=== PATIENT | female | born 1975 | race Two or more races ===

== ENCOUNTER 2020-12-04 06:42 | Emergency (ER) | payer MEDICAID, SELFPAY ==
--- NOTE | 2020-12-04 06:55 | PC.NURSE ---
ems report: CF woke up with middle of night with cp located midsternal. - radiation +n/v. No PMH of signficant medical history or recent infection. Hx anxiety and depression. Med compliant. VS; 110/68, HR 81 100% ra 18. given 324mg asa by ems. - als intercept.
[2020-12-04 06:58] VITALS: BP 108/63; PULSE 75; RESP 18; TEMP 37.6; O2SAT 100; BMI 19.1
--- NOTE | 2020-12-04 07:49 | XR_ITS ---
EXAMINATION: XR CHEST CLINICAL INFORMATION: Shortness of breath. COMPARISON: None TECHNIQUE: Frontal view of the chest was obtained. FINDINGS: No significant abnormality is noted involving the heart, lungs, mediastinum, bony thorax or soft tissues. XR/XR chest 1V IMPRESSION: Unremarkable examination. No significant change since 02/05/2019.
--- NOTE | 2020-12-04 07:49 | ECG_ITS ---
Test Reason : CHEST PAIN Blood Pressure : / mmHG Vent. Rate : 069 BPM Atrial Rate : 069 BPM P-R Int : 134 ms QRS Dur : 090 ms QT Int : 420 ms P-R-T Axes : 078 068 068 degrees QTc Int : 450 ms Normal sinus rhythm Normal ECG No previous ECGs available Referred By: Trace Lisa Electronically Signed By:KAREN BARROW
--- NOTE | 2020-12-04 07:51 | ED.CHESTPAIN ---
HPI - Chest Pain General Chief Complaint: Chest Pain Stated Complaint: CHEST PAIN Time Seen by Provider: 12/04/20 07:43 Source: patient Limitations: no limitations History of Present Illness HPI narrative: This is a 45 years old female presented with a chief complaint of sharp left-sided chest pain worse with deep breath. Symptoms started yesterday at about 23:00 complaint: chest pain Onset (ago): hour(s) (8) Prior episodes: Yes Onset: during rest Pain location: substernal Pain radiation: none Severity: mild Quality: sharp Exacerbating factors: inspiration Risk Factors Coronary artery disease risk factors: none Related Data Allergies Allergy/AdvReac Type Severity Reaction Status Date / Time No Known Allergies Allergy Unverified 08/18/20 17:36 Review of Systems Review of Systems: Patient denies fever, GI symptoms, urinary symptoms, neurological symptoms Yes all other systems are reviewed and are negative Constitutional: Constitutional: Reports no additional constitutional complaints PMFSH Past Medical History Medical History Anxiety Depression Surgical History H/O removal of cyst Hx of tonsillectomy Social History Social History Smoking Status: Light tobacco smoker Use of substances other than those prescribed or required for medical reasons: No Advance Directives: No Advance Directives Information Provided: No Physical Exam Vital Signs: Vital Signs: Last Vital Signs Temp 99.7 F 12/04/20 06:58 Pulse 68 12/04/20 07:55 Resp 16 12/04/20 07:55 BP 100/64 12/04/20 07:55 Pulse Ox 100 12/04/20 07:55 Body Mass Index 19.1 Const: Other: She appear well in not acute distress somewhat anxious General: cooperative Orientation/consciousness: oriented to person, oriented to place and oriented to time HENMT: Head: Yes normal to inspection Eyes: Eyelids: Yes eyelids normal Conjunctivae: conjunctivae normal Neck: Neck: Yes normal visual inspection and Yes full ROM Chest: Chest palpation & inspection: normal inspection of the chest and normal palpation of entire chest wall Resp: Effort & Inspection: normal respiratory effort Auscultation: clear to auscultation bilaterally Cardio: Jugular venous distension: no JVD Rate: regular rate GI: Inspection: Yes normal to inspection Palpation (GI): Soft to palpation, nontender and no guarding Percussion: Yes normal to percussion Skin: Rashes: no rashes Neuro: General: oriented to person, oriented to place and oriented to time Course Course Course Narrative: Patient was re-examined at 09:00 she is doing much better, her pain is better, high sensitivity troponin was negative and D-dimer was negative, she is satting 100% on room air overall she is a low risk she will be discharged home MDM - Chest Pain Lab Data Result diagrams: 12/04/20 08:02 12/04/20 08:02 Labs: Lab Results 12/04/20 12/04/20 12/04/20 Range/Units 08:02 08:02 08:02 WBC 3.8 L (4.8-10.8) X10*3/uL RBC 4.16 L (4.20-5.50) X10*6/uL Hgb 12.3 (12.0-16.0) g/dl Hct 37.6 (37-47) % MCV 90.4 (80-98) fL MCH 29.6 (27.0-33.0) pg MCHC 32.7 (31.0-35.0) g/dl RDW 13.0 (11.0-16.0) % Plt Count 204 (160-400) X10*3/uL MPV 9.7 (9.4-12.3) fL Immature Gran % (Auto) 0.3 (0.0-0.4) % Neut % (Auto) 50.5 (45-73) % Lymph % (Auto) 40.3 H (20-40) % [place] % (Auto) 5.8 (2-11) % Eos % (Auto) 1.8 (0-4) % Baso % (Auto) 1.3 (0-2) % Lymph # (Auto) 1.5 (1.2-4.9) X10*3/uL [place] # (Auto) 0.2 (0.1-1.2) X10*3/uL Eos # (Auto) 0.1 (0.0-0.4) X10*3/uL Baso # (Auto) 0.1 (0.0-0.2) X10*3/uL Abs Immat Gran (auto) 0.01 (0.00-0.03) X10*3/uL Absolute Neuts (auto) 1.9 L (2.0-8.3) X10*3/uL Absolute Nucleated RBC 0.000 (0.0-0.012) X10*3/uL Nucleated RBC % (auto) 0.0 (0.0-0.2) /100WBC PT 14.3 H (10.8-13.0) SEC INR 1.2 H (0.9-1.1) D-Dimer < 200 NG/ML Sodium 139 (135-145) mmol/L Potassium 3.3 (3.3-5.1) mmol/l Chloride 103 (96-108) mmol/L Carbon Dioxide 28 (22-29) mmol/L Anion Gap 11 L (12-20) BUN 2 L (9-16) mg/dL Creatinine 0.69 (0.5-1.4) mg/dL Estim Creat Clear Calc 90.9 Estimated GFR > 60 Random Glucose 94 (60-115) mg/dL Calcium 8.7 (8.4-10.2) mg/dL Total Bilirubin 0.6 (0.0-1.0) mg/dL AST 21 (5-31) U/L ALT 16 (0-31) U/L Alkaline Phosphatase 46 (39-117) U/L Troponin I High Sens (<3.5-17.0) ng/L Total Protein 6.0 L (6.5-8.0) g/dL Albumin 3.8 (3.5-5.0) g/dL 12/04/20 Range/Units 08:02 WBC (4.8-10.8) X10*3/uL RBC (4.20-5.50) X10*6/uL Hgb (12.0-16.0) g/dl Hct (37-47) % MCV (80-98) fL MCH (27.0-33.0) pg MCHC (31.0-35.0) g/dl RDW (11.0-16.0) % Plt Count (160-400) X10*3/uL MPV (9.4-12.3) fL Immature Gran % (Auto) (0.0-0.4) % Neut % (Auto) (45-73) % Lymph % (Auto) (20-40) % [place] % (Auto) (2-11) % Eos % (Auto) (0-4) % Baso % (Auto) (0-2) % Lymph # (Auto) (1.2-4.9) X10*3/uL [place] # (Auto) (0.1-1.2) X10*3/uL Eos # (Auto) (0.0-0.4) X10*3/uL Baso # (Auto) (0.0-0.2) X10*3/uL Abs Immat Gran (auto) (0.00-0.03) X10*3/uL Absolute Neuts (auto) (2.0-8.3) X10*3/uL Absolute Nucleated RBC (0.0-0.012) X10*3/uL Nucleated RBC % (auto) (0.0-0.2) /100WBC PT (10.8-13.0) SEC INR (0.9-1.1) D-Dimer NG/ML Sodium (135-145) mmol/L Potassium (3.3-5.1) mmol/l Chloride (96-108) mmol/L Carbon Dioxide (22-29) mmol/L Anion Gap (12-20) BUN (9-16) mg/dL Creatinine (0.5-1.4) mg/dL Estim Creat Clear Calc Estimated GFR Random Glucose (60-115) mg/dL Calcium (8.4-10.2) mg/dL Total Bilirubin (0.0-1.0) mg/dL AST (5-31) U/L ALT (0-31) U/L Alkaline Phosphatase (39-117) U/L Troponin I High Sens < 3.5 (<3.5-17.0) ng/L Total Protein (6.5-8.0) g/dL Albumin (3.5-5.0) g/dL ECG Data ECG #1: Attestation: I personally reviewed and interpreted this ECG as follows: ECG interpretation date: 12/04/20 ECG interpretation time: 08:01 Prior ECG tracings: available for review Pacemaker model: Normal sinus rhythm a rate of [address]-T segment isoelectr Discharge Plan Discharge Clinical Impression: Chest pain Patient Disposition: Home, Self-Care Instructions: Chest Pain (ED) Additional Instructions: Please follow-up with your primary care physician, call in a.m.. Return to the emergency room acutely worse shortness of breath, fever, chills any concern recurrent chest pain Interventions: ED Discharge Assessment Last Done: 12/04/20 09:24 Discharge Date/Time: 12/04/20 09:25
[2020-12-04 07:55] VITALS: BP 100/64; PULSE 68; RESP 16; O2SAT 100
[2020-12-04 08:09] LABS: MANUAL DIFF FLAG NO
[2020-12-04 08:10] LABS: Basophils Absolute Auto 0.1 X10*3/uL (0.0-0.2); Basophils Percent Auto 1.3 % (0-2); Eosinophils Absolute Auto 0.1 X10*3/uL (0.0-0.4); Eosinophils Percent Auto 1.8 % (0-4); Hematocrit 37.6 % (37-47); Hemoglobin 12.3 g/dl (12.0-16.0); Imm Gran Abs Auto 0.01 X10*3/uL (0.00-0.03); Imm Gran Pct Auto 0.3 % (0.0-0.4); Lymphocytes Absolute Auto 1.5 X10*3/uL (1.2-4.9); Lymphocytes Percent Auto 40.3 % (20-40); Mean Corpuscular HGB Conc 32.7 g/dl (31.0-35.0); Mean Corpuscular Hemoglobin 29.6 pg (27.0-33.0); Mean Corpuscular Volume 90.4 fL (80-98); Mean Platelet Volume 9.7 fL (9.4-12.3); Monocytes Absolute Auto 0.2 X10*3/uL (0.1-1.2); Monocytes Percent Auto 5.8 % (2-11); Neutrophils Absolute Auto 1.9 X10*3/uL (2.0-8.3); Neutrophils Percent Auto 50.5 % (45-73); Platelet Count 204 X10*3/uL (160-400); Red Blood Count 4.16 X10*6/uL (4.20-5.50); White Blood Count 3.8 X10*3/uL (4.8-10.8)
[2020-12-04] MEDS: Ketorolac Tromethamine 15 MG/ML VIAL IV (08:14)
[2020-12-04 08:33] LABS: INTERNATIONAL NORM RATIO 1.2 (0.9-1.1); Prothrombin Time 14.3 SEC (10.8-13.0)
[2020-12-04 08:34] LABS: Troponin-I High Sensitivity < 3.5 ng/L (<3.5-17.0)
[2020-12-04 08:39] LABS: D Dimer < 200 NG/ML
[2020-12-04 08:42] LABS: Alanine Aminotransferase 16 U/L (0-31); Albumin Level 3.8 g/dL (3.5-5.0); Alkaline Phosphatase 46 U/L (39-117); Anion Gap 11 (12-20); Aspartate Amino Transferase 21 U/L (5-31); Bilirubin Total 0.6 mg/dL (0.0-1.0); Blood Urea Nitrogen 2 mg/dL (9-16); Calcium 8.7 mg/dL (8.4-10.2); Carbon Dioxide 28 mmol/L (22-29); Chloride 103 mmol/L (96-108); Creatinine Clr Calc Pharmacy 90.9; Estimated Glomerular Filt Rate > 60; Glucose Random 94 mg/dL (60-115); Potassium 3.3 mmol/l (3.3-5.1); Sodium 139 mmol/L (135-145)
--- NOTE | 2020-12-04 09:13 | PC.NURSE ---
Addendum entered by Genoveva Posey 12/04/20 09:15: pt requesting a covid swab Original Note: pt reports no improvement after the toradol, pain still 07/11
== END 2020-12-04 09:25 | disposition home or self-care (01) ==
PROVIDERS: Emergency Provider Emergency Medicine; PCP Internal Medicine Geriatric Medicine
DX: R07.9 Chest pain, unspecified (principal); F17.200 Nicotine dependence, unspecified, uncomplicated; Z71.6 Tobacco abuse counseling; Z20.828 Contact with and (suspected) exposure to other viral communicable diseases
CPT/HCPCS: 36415; 71045; 80053; 84484; 85025; 85379; 85610; 93005; 96374; 99284; J1885; U0003

== ENCOUNTER → 2020-12-26 11:55 | Outpatient (BNVA) | payer MEDICAID, SELFPAY | PROVIDERS: PCP Internal Medicine Geriatric Medicine; Visit Provider Physician Assistant ==

== ENCOUNTER 2021-01-05 07:09 | Outpatient (REF) | payer MEDICAID, SELFPAY ==
--- NOTE | ~2021-01-05 | FL_ITS ---
EXAMINATION: FL BARIUM SWALLOW CLINICAL INFORMATION: Dysphagia. COMPARISON: None. TECHNIQUE: Barium swallow examination is performed using fluoroscopic evaluation in addition to multiple fluoroscopic spot views. The patient is imaged both upright and prone and using both thick and thin sulfate along with effervescent granules. Fluoroscopy time: 0.9 minutes. DAP: 2.9 Gy-cm2. Images: 51. FINDINGS: Following intravenous administration of thick barium and barium-coated turkey, there is normal propagation of bolus from the oral cavity through the pharynx and esophagus and into the stomach. No obstruction, narrowing or stricture seen. No laryngeal penetration or aspiration seen. There is no retention of barium in the valleculae or piriform sinuses. Patient did have difficulty on initiation of oral swallowing every time irrespective of consistency of food. FL/FL barium swallow IMPRESSION: Significant difficulty on initiation of swallowing of any consistency of food. The entire esophagus and pharynx appear unremarkable.
== END 2021-01-05 07:10 | disposition home or self-care (01) ==
LOC: HO.XRAY 07:09
PROVIDERS: PCP Internal Medicine Geriatric Medicine; Visit Provider Physician Assistant
DX: R13.10 Dysphagia, unspecified (principal)
CPT/HCPCS: 74220

== ENCOUNTER → 2021-01-23 13:14 | Outpatient (BNVA) | payer MEDICAID, SELFPAY | PROVIDERS: PCP Internal Medicine Geriatric Medicine; Visit Provider Physician Assistant ==

== ENCOUNTER 2021-03-27 10:02 | Day surgery (SDC) | payer MEDICAID, SELFPAY ==
[2021-03-27 10:48] VITALS: BP 103/64; PULSE 72; RESP 18; TEMP 36.7; O2SAT 100; BMI 18.4
[2021-03-27 10:49] LABS: UPreg QC Valid YES; Urine Pregnancy NEGATIVE (NEGATIVE)
--- NOTE | 2021-03-27 11:14 | P.CONAN_ITS ---
[facility] Active Problems Active Problems: All Active Problems (Updated 02/22/21 @ 11:08 by Lilli almanza) Dysphagia (Acute) Depression (Acute) Past Medical History Medical History Anxiety Depression GERD (gastroesophageal reflux disease) Family History Family History Father No problems noted. Mother No problems noted. Surgical History Surgical History History of esophagogastroduodenoscopy (EGD) History of excision of pilonidal cyst Hx of tonsillectomy Social History Social History Household Members: None Alcohol intake: current Alcohol intake frequency: does not drink Smoking Status: Former smoker Use of substances other than those prescribed or required for medical reasons: No Have you been hit, kicked, punched, or otherwise hurt by someone within the past year? If so, by whom?: No Advance Directives: No Advance Directives Information Provided: Yes Current occupational status: [employer] Allergies Allergy/AdvReac Type Severity Reaction Status Date / Time No Known Allergies Allergy Verified 03/22/21 11:53 Home Medications Medication Instructions Recorded Confirmed Last Taken Type fluoxetine 20 mg capsule 20 mg PO BID 12/26/20 03/22/21 Unknown History iloperidone 6 mg tablet 6 mg PO BID 12/26/20 03/22/21 Unknown History quetiapine 300 mg tablet,extended 600 mg PO BEDTIME 12/26/20 03/22/21 Unknown History release 24 hr sucralfate 100 mg/mL oral 10 ml PO BID 12/26/20 03/22/21 Unknown History suspension Exam Exam Date and Time: March 27, 2021 1114 Height,Weight and Vital Signs: Height 5 ft 7 in Weight 53.524 kg Last Vital Signs Temp 98.0 F 03/27/21 10:48 Pulse 72 03/27/21 10:48 Resp 18 03/27/21 10:48 BP 103/64 03/27/21 10:48 Pulse Ox 100 03/27/21 10:48 Pertinent Lab Results Pertinent Lab Results: Laboratory Tests 03/27/21 10:26 Urine Test NEGATIVE Airway Mallampati Class: I TM Dist: >3cm Neck ROM: Full Partial: Upper Heart: RRR Lungs: CTA Assessment and Plan Assessment Anesthesia Assessment: Anesthesia Plan Discussed and Chart Reviewed Final Anesthetic Review NPO: Yes ASA Class: II Final Preanesthetic Review: Meds/Allgs Chart Reviewed, Consent Obtained/Reviewed and Anes Risks/Benef Reviewed Patient Risk: Low Procedure Risk: Intermediate Anesthetic Plan Anesthetic Plan: MAC: Disposition: Standard PACU
--- NOTE | 2021-03-27 11:18 | W.PM.OPN ---
Operative Note Operative Note Date of Service: 03/27/21 Narrative: Pre-op diagnosis: GERD, Dysphagia Post-op diagnosis: other (GERD, dysphagia, gastritis) Procedure: FLEXIBLE TRANSORAL UPPER GASTROINTESTINAL ENDOSCOPY HAD BIOPSIES AND ESOPHAGEAL BALLOON DILATION Consent: Indications for the procedure and potential complications of bleeding, perforation, reaction to medications and missed diagnosis were discussed with the patient and informed consent was obtained. Instrument: Olympus GIF H 190 mid size upper endoscope Monitoring: Vital signs and clinical assessment, continuous EKG monitoring, Pulse oximetry, Carbon Dioxide monitoring and blood pressure monitoring were done throughout the procedure. Procedure: The patient was placed in the left lateral decubitis position and pre-procedure medications were administered and a bite block was placed. The endoscope was inserted into the mouth and advanced under direct vision to the third part of duodenum. A careful inspection was made as the upper endoscope was withdrawn including a retroflexed examination of the proximal stomach; Findings and interventions are described below. Findings: Larynx: Normal Esophagus: Mildly tortuous esopahgus with increased tertiary contractions without stricture or ring - biopsies were obtained from proximal esophagus to check for EOE. GE junction at 38 cms. No esophagitis or Ramirez. Balloon dilation was performed with a 20 mm (60 F) CRE balloon for 60 seconds x1 Stomach: Mild gastric erythema. Biopsies were obtained. Grade 2 flap valve on retroflexed examination of the cardia. Duodenum: Normal bulb and descending duodenum Intervention: Biopsies as noted above Impression and Post Procedure Diagnosis: Endoscopy Findings: ESOPHAGUS: Mildly tortuous esopahgus with increased tertiary contractions without stricture or ring - biopsies were obtained from proximal esophagus to check for EOE. GE junction at 38 cms. No esophagitis or Ramirez. Balloon dilation was performed with a 20 mm (60 F) CRE balloon for 60 seconds x1 STOMACH: Mild gastritis Plan: Await pathology results Patient to schedule a FU appointment in the GI Clinic with ETHEL Olson. Above findings were reviewed with the patient and GERD handout was given in the discharge area Surgeon: Perla Layton MD Anesthesia: MAC (Dr Benton) Supervisor [employer]: Ana Martinez Estimated blood loss (mL): 0 Pathology: other (A. GASTRIC ANTRUM, R/O H. PYLORI B. PROXIMAL ESOPHAGUS R/O EOSINOPHILIC ESOPHAGITIS) Condition: stable Disposition: PACU
--- NOTE | 2021-03-27 11:18 | MHC.SHP ---
Pre-Procedural Eval Section A The patient is an INPATIENT: No The History & Physical has been completed within 30 days and I have reviewed it.: No Section B Chief Complaint: Dysphagia Details of Present Illness: A 45-year-old female with acid reflux, follows up after recent barium swallow. She has been taking omeprazole 20 mg as well as sucralfate b.i.d.. She has frequent breakthrough acid reflux. She wakes up bitter taste-she does not smoke or drink alcohol. Her appetite is good, but she is afraid to eat so that she does not get more acid reflux. She has no nausea or vomiting, fever or chills. Relevant Family History (Specify if Yes): No Relevant Social History: Tobacco Use (former smoker) Present Medications: see Short Stay Collaborative assessment Medical History: Significant History (Anxiety and depression) History of Previous Operations: Relevant previous surgery/procedure and date(s) (H/O removal of cyst Hx of tonsillectomy) Allergies: Allergies Allergy/AdvReac Type Severity Reaction Status Date / Time No Known Allergies Allergy Verified 03/22/21 11:53 Review of Systems Sugical H&P ROS: Negative: Constitution, Cardiovascular and Respiratory and Yes, Specify: Gastrointestinal (GERD, dysphagia) Exam Surgical H&P Exam: Normal: Heart, Normal: Lungs, Normal: Extremities and Normal: Abdomen Plan Diagnosis/Plan: Unchanged I have reviewed the history and physical and performed a pertinent physical examination on my patient. No changes have occurred unless specified.
[2021-03-27 11:55] VITALS: BP 82/47; PULSE 52; RESP 14; TEMP 36.2; O2SAT 100
[2021-03-27 12:00] VITALS: BP 92/50; PULSE 54
[2021-03-27 12:10] VITALS: BP 98/60; PULSE 75; RESP 18; O2SAT 99
[2021-03-27] MEDS: Lactated Ringers 500 ML 20 ML IVCONT (12:21)
[2021-03-27 12:26] VITALS: TEMP 36.6
== END 2021-03-27 13:22 | disposition home or self-care (01) ==
PROVIDERS: Anesthesiology; PCP Internal Medicine Geriatric Medicine; Visit Provider Internal Medicine Gastroenterology
PROC: 0DJ08ZZ Inspection of Upper Intestinal Tract, Via Natural or Artificial Opening Endoscopic (ICD-10-PCS; CPT 43235; principal; 2021-03-27 12:20)
DX: R13.10 Dysphagia, unspecified (principal); K22.8 Other specified diseases of esophagus; K21.9 Gastro-esophageal reflux disease without esophagitis; K29.50 Unspecified chronic gastritis without bleeding; F32.9 Major depressive disorder, single episode, unspecified; Z87.891 Personal history of nicotine dependence; Z79.899 Other long term (current) drug therapy
CPT/HCPCS: 43249; 43239; 81025; 88305; 88342; C1726; J2370

== ENCOUNTER 2021-04-07 14:50 | Outpatient (REF) | payer MEDICAID, SELFPAY ==
[2021-04-07 15:22] LABS: COVID-19 Test Negative (Negative)
== END 2021-04-07 14:51 | disposition home or self-care (01) ==
LOC: HO.LAB 14:50
PROVIDERS: Visit Provider Internal Medicine
DX: Z20.822 Contact with and (suspected) exposure to COVID-19 (principal)
CPT/HCPCS: 36415; 87635; C9803

== ENCOUNTER → 2022-01-24 10:24 | Outpatient (BNVA) | payer MEDICAID, SELFPAY | PROVIDERS: PCP Internal Medicine Geriatric Medicine; Visit Provider Physician Assistant ==

== ENCOUNTER 2022-05-14 13:24 | Emergency (ER) | payer MEDICAID, SELFPAY ==
--- NOTE | ~2022-05-14 | XR_ITS ---
EXAMINATION: XR CHEST CLINICAL INFORMATION: Shortness of breath COMPARISON: 12/04/2020 TECHNIQUE: Frontal view of the chest was obtained. FINDINGS: No significant abnormality is noted involving the heart, lungs, mediastinum, bony thorax or soft tissues. XR/XR chest 1V IMPRESSION: Unremarkable examination.
[2022-05-14 13:57] VITALS: BP 101/67; PULSE 76; RESP 18; TEMP 37.2; O2SAT 99; BMI 19.5
--- NOTE | 2022-05-14 15:10 | ED_ITS ---
HPI - General Adult General Chief complaint: General Medical Stated complaint: body itch, nausea, headache, chills, sob Time Seen by Provider: 05/14/22 15:08 Source: patient Mode of arrival: ambulatory History of Present Illness HPI narrative: 46-year-old female with a past medical history of anxiety, depression, GERD, presenting to the ED complaining of generalized fatigue/weakness and lethargy x1 week. Also reports shortness of breath, headache, nausea, and chills. Denies fever, cough, chest pain, abdominal pain, vomiting, diarrhea, recent travel, sick contacts. Denies headache being maximal in onset. Admits p.o. intake WNL Onset (ago): week(s) Related Data Home Medications Medication Instructions Recorded Confirmed fluoxetine 20 mg capsule (Prozac) 20 mg PO BID 12/26/20 01/24/22 iloperidone 6 mg tablet (Fanapt) 6 mg PO BID 12/26/20 01/24/22 quetiapine 300 mg tablet,extended 600 mg PO BEDTIME 12/26/20 01/24/22 release 24 hr (Seroquel XR) Previous Rx's Medication Instructions Recorded omeprazole 20 mg capsule,delayed 20 mg PO BID 30 days #60 caps 01/23/21 release omeprazole 20 mg capsule,delayed 20 mg PO BID 30 days #60 caps 01/24/22 release sucralfate 100 mg/mL oral 10 ml PO BID #420 mL 05/10/22 suspension (Carafate) Allergies Allergy/AdvReac Type Severity Reaction Status Date / Time No Known Allergies Allergy Verified 05/14/22 13:57 Review of Systems Review of Systems: Constitutional: No Weight loss, No Fever, + Chills, +fatigue, +malaise ENT/Mouth: No Ear Pain, No Nasal Congestion, No Sinus Pain, No Hoarseness, No sore throat, No Rhinorrhea, No Swallowing Difficulty Cardiovascular: No Chest Pain, + SOB Respiratory: No Cough, No Sputum, No Wheezing Gastrointestinal: + Nausea, No Vomiting, No Diarrhea, No Constipation, No Abdominal pain Genitourinary: No Dysuria, No Urinary Frequency, No Hematuria, No Urinary Incontinence/retention, No Urgency, No Flank Pain Musculoskeletal: No joint pain, No Myalgias, No Joint Swelling Skin: No Skin Lesions, No rash Neuro: + Weakness, No Numbness, No Paresthesias, +Headache Yes all other systems are reviewed and are negative Neurologic: Denies Abnormal speech present [facility] Past Medical History Attestation statement: The following information was validated with the patient. Medical History Anxiety Depression GERD (gastroesophageal reflux disease) Surgical History History of esophagogastroduodenoscopy (EGD) History of excision of pilonidal cyst Hx of tonsillectomy Family History Family History Father No problems noted. Mother No problems noted. Social History Social History Household Members: None Household Members Other:: alone Alcohol intake: current Alcohol intake frequency: does not drink Advance Directives: No Advance Directives Information Provided: Yes Current occupational status: disabled Physical Exam ED Vital Signs: Vital Signs - 24 hr 05/14/22 13:57 Temperature 98.9 F Pulse Rate 76 Respiratory Rate 18 Blood Pressure 101/67 Pulse Oximetry 99 Oxygen Delivery Method Room Air BMI result Body Mass Index 19.5 Const General: cooperative, healthy appearing, no acute distress, alert, awake and Physically active Orientation/consciousness: patient oriented x3 Limitations: no limitations HENMT Head: Yes normal to inspection and Yes atraumatic Ears: hearing grossly normal bilaterally and external ears normal General nose exam: Normal external nose present Face and sinus: Yes normal facial exam Mouth: Normal oral and palatal mucosa present Throat: Yes posterior oropharynx normal, Yes tonsils normal, Yes uvula midline and No peritonsillar mass Eyes General: appearance normal, both eyes and all related structures EOM: EOMs intact bilaterally Neck Neck: Yes normal visual inspection, Yes no lymphadenopathy and Yes no meningeal signs Resp Effort & Inspection: normal respiratory effort and no respiratory distress Auscultation: clear to auscultation bilaterally, no crackles, no rales, no rhonchi and no wheezes Cardio Rate: regular rate Heart sounds: S1 normal heart sound present and S2 normal heart sound present GI Inspection: Yes normal to inspection Palpation (GI): Soft to palpation, nontender, no guarding and not rigid General: Yes no CVA tenderness Back/Spine/Pelvis Back: no CVA tenderness Skin Rashes: no rashes Wounds: no wounds Neuro General: patient oriented x3, gait normal, tone normal, moves all extremities, no meningeal signs, no focal motor deficits and CN's II-XI intact bilaterally Cranial nerves: Yes CN's II-XII intact bilaterally and Yes Bilaterally intact EOM present Cognition (Neuro): normal cognition Speech: No Abnormal speech present Gait exam (Neuro): Normal gait present Motor exam (neuro): 5/5 motor strength present throughout Extrem General: Yes normal to inspection and Yes no pedal edema Course Course Course Narrative: 1619--chronic leukopenia. COVID-19 and influenza negative -chest x-ray unremarkable -labs otherwise unremarkable, UA not infected however urine positive > beta quant added > patient denies being sexually active since 2013, denies vaginal bleeding/ discharge or abdominal pain -beta quant 3 >> discussed with patient she needs repeat hCG in 2 days, order placed is to follow-up in lab on 05/16 Medical Decision Making [facility] Narrative Medical decision making narrative: 46-year-old female with a past medical history of anxiety, depression, GERD, presenting to the ED complaining of generalized fatigue/weakness and lethargy x1 week. Also reports shortness of breath, headache, nausea, and chills. On exam VSS, NAD, nontoxic, exam nonfocal. Concern for viral syndrome vs metabolic abnormalities or infectious etiology. Symptoms atypical for ACS/PE Plan: EKG, labs, CXR, UA, COVID-19/influenza testing Medical Records Medical records reviewed: Yes I reviewed the patient's medical records. Lab Data Lab results reviewed: Yes I reviewed the patient's lab results. Result diagrams: 05/14/22 15:59 05/14/22 15:59 Labs: Lab Results 05/14/22 05/14/22 05/14/22 Range/Units 14:42 14:42 15:53 WBC (4.8-10.8) X10*3/uL RBC (4.20-5.50) X10*6/uL Hgb (12.0-16.0) g/dl Hct (37.0-47.0) % MCV (80.0-98.0) fL MCH (27.0-33.0) pg MCHC (31.0-35.0) g/dl RDW (11.0-16.0) % Plt Count (160-400) X10*3/uL MPV (9.4-12.3) fL Immature Gran % (Auto) (0.0-0.4) % Neut % (Auto) (45-73) % Lymph % (Auto) (20-40) % [place] % (Auto) (2-11) % Eos % (Auto) (0-4) % Baso % (Auto) (0-2) % Lymph # (Auto) (1.2-4.9) X10*3/uL [place] # (Auto) (0.1-1.2) X10*3/uL Eos # (Auto) (0.0-0.4) X10*3/uL Baso # (Auto) (0.0-0.2) X10*3/uL Abs Immat Gran (auto) (0.00-0.03) X10*3/uL Absolute Neuts (auto) (2.0-8.3) x10*3/uL Absolute Nucleated RBC (0.0-0.012) X10*3/uL Nucleated RBC % (auto) (0.0-0.2) /100WBC Sodium (135-145) mmol/L Potassium (3.3-5.1) mmol/L Chloride (96-108) mmol/L Carbon Dioxide (22-29) mmol/L Anion Gap (12-20) BUN (9-16) mg/dL Creatinine (0.5-1.4) mg/dL Estim Creat Clear Calc Estimated GFR Random Glucose (60-115) mg/dL Calcium (8.4-10.2) mg/dL Magnesium (1.6-2.6) mg/dL Total Bilirubin (0.0-1.0) mg/dL Direct Bilirubin (0.0-0.5) mg/dL AST (5-31) U/L ALT (0-31) U/L Alkaline Phosphatase (39-117) U/L Total Protein (6.5-8.0) g/dL Albumin (3.5-5.0) g/dL TSH (0.32-4.0) uIU/mL Beta HCG, Quant mIU/mL Urine Color YELLOW Urine Appearance CLEAR Urine pH 6.0 (5.0-8.0) Ur Specific [place] >= 1.030 H (1.005-1.025) Urine Protein NEG (NEG-TRACE) MG/DL Urine Glucose (UA) NEG (NEG) MG/DL Urine Ketones NEG (NEG) MG/DL Urine Blood NEG (NEG) Urine Nitrite NEG (NEG) Ur Leukocyte Esterase NEG (NEG) Urine Test (NEGATIVE) COVID-19 (BUSTER) Negative (Negative) COVID-19 Clin Com See Note Influenza Type A (KAYCE) Negative (Negative) Influenza Type B (KAYCE) Negative (Negative) Influenza A & B Note See Note 05/14/22 05/14/22 05/14/22 Range/Units 15:53 15:59 15:59 WBC 4.5 L (4.8-10.8) X10*3/uL RBC 4.41 (4.20-5.50) X10*6/uL Hgb 13.0 (12.0-16.0) g/dl Hct 39.7 (37.0-47.0) % MCV 90.0 (80.0-98.0) fL MCH 29.5 (27.0-33.0) pg MCHC 32.7 (31.0-35.0) g/dl RDW 12.8 (11.0-16.0) % Plt Count 228 (160-400) X10*3/uL MPV 10.0 (9.4-12.3) fL Immature Gran % (Auto) 0.2 (0.0-0.4) % Neut % (Auto) 54.6 (45-73) % Lymph % (Auto) 35.7 (20-40) % [place] % (Auto) 6.4 (2-11) % Eos % (Auto) 1.8 (0-4) % Baso % (Auto) 1.3 (0-2) % Lymph # (Auto) 1.6 (1.2-4.9) X10*3/uL [place] # (Auto) 0.3 (0.1-1.2) X10*3/uL Eos # (Auto) 0.1 (0.0-0.4) X10*3/uL Baso # (Auto) 0.1 (0.0-0.2) X10*3/uL Abs Immat Gran (auto) 0.01 (0.00-0.03) X10*3/uL Absolute Neuts (auto) 2.5 (2.0-8.3) x10*3/uL Absolute Nucleated RBC 0.000 (0.0-0.012) X10*3/uL Nucleated RBC % (auto) 0.0 (0.0-0.2) /100WBC Sodium 138 (135-145) mmol/L Potassium 4.7 (3.3-5.1) mmol/L Chloride 104 (96-108) mmol/L Carbon Dioxide 29 (22-29) mmol/L Anion Gap 10 L (12-20) BUN 6 L (9-16) mg/dL Creatinine 0.81 (0.5-1.4) mg/dL Estim Creat Clear Calc 78.5 Estimated GFR > 60 Random Glucose 79 (60-115) mg/dL Calcium 9.7 D (8.4-10.2) mg/dL Magnesium 1.9 (1.6-2.6) mg/dL Total Bilirubin 0.5 (0.0-1.0) mg/dL Direct Bilirubin 0.2 (0.0-0.5) mg/dL AST 20 (5-31) U/L ALT 12 (0-31) U/L Alkaline Phosphatase 56 D (39-117) U/L Total Protein 7.1 (6.5-8.0) g/dL Albumin 4.3 (3.5-5.0) g/dL TSH 1.45 (0.32-4.0) uIU/mL Beta HCG, Quant 3 mIU/mL Urine Color Urine Appearance Urine pH (5.0-8.0) Ur Specific [place] (1.005-1.025) Urine Protein (NEG-TRACE) MG/DL Urine Glucose (UA) (NEG) MG/DL Urine Ketones (NEG) MG/DL Urine Blood (NEG) Urine Nitrite (NEG) Ur Leukocyte Esterase (NEG) Urine Test POSITIVE H (NEGATIVE) COVID-19 (BUSTER) (Negative) COVID-19 Clin Com Influenza Type A (KAYCE) (Negative) Influenza Type B (KAYCE) (Negative) Influenza A & B Note ECG Data Attestation: I personally reviewed and interpreted this ECG as follows: Interpretation: EKG normal sinus rhythm at a rate of 72. QRS 90. QTC 418. No STEMI. Nonischemic. Discharge Plan Discharge Clinical Impression: Fatigue, Positive test Patient Disposition: Home, Self-Care Instructions: (ED), Fatigue (ED) Additional Instructions: Your blood work was reassuring today in the emergency department. Your chest x- ray was negative. He tested negative for COVID-19 and. Her urine was positive, your blood test for is extremely low, this needs to be watched very closely. Is positive bowel you are having an active miscarriage or an ectopic, or this is a false-positive You need to have the level recheck in 2 days, proceed to the lab at 09:00 on the . If he developed any vaginal bleeding, discharge, or abdominal pain please return to the ED immediately Call your OBGYN tomorrow morning 1st thing Reynolds an?lisis de juwan fue tranquilizador hoy en el departamento de emergencias. Reynolds radiograf?a de t?rax fue negativa. Brandon negativo para COVID-19 y. Reynolds embarazo en orina fue positivo, reynolds an?lisis de juwan para el embarazo es extremadamente bajo, esto debe vigilarse muy de cerca. Si el intestino es positivo, est? teniendo un aborto espont?ruslan activo o un ect?walter, o se trata de un falso positivo Debe volver a verificar el nivel en 2 d?as, dir?rickey al laboratorio a las 09:00 el d?a 15. Si desarroll? sangrado vaginal, secreci?n o dolor abdominal, regrese al servicio de urgencias de inmediato. Llame a reynolds obstetra ma?maxwell por la ma?maxwell a primera hora Prescriptions: No Action sucralfate [Carafate] 100 mg/mL suspension 10 ml PO BID Qty: 420 0RF quetiapine [Seroquel XR] 300 mg tablet extended release 24 hr 600 mg PO BEDTIME fluoxetine [Prozac] 20 mg capsule 20 mg PO BID Rx Instructions: administer in the morning and at noon/midday Fanapt 6 mg tablet 6 mg PO BID omeprazole 20 mg capsule,delayed release(/EC) 20 mg PO BID 30 Days Qty: 60 5RF omeprazole 20 mg capsule,delayed release(DR/EC) 20 mg PO BID 30 Days Qty: 60 5RF Referrals: Billy Brown MD [Physician] - 2 days (call tomorrow) Print Language: Qatari
[2022-05-14 15:20] LABS: COVID-19 Test Negative (Negative); IDNOW Serial# 16C4AD1C; Influenza A Negative (Negative); Influenza B2 Negative (Negative)
--- NOTE | 2022-05-14 15:34 | ECG_ITS ---
Test Reason : WEAKNESS Blood Pressure : / mmHG Vent. Rate : 072 BPM Atrial Rate : 072 BPM P-R Int : 144 ms QRS Dur : 090 ms QT Int : 382 ms P-R-T Axes : 000 148 149 degrees QTc Int : 418 ms Limb lead reversed Normal sinus rhythm Nonspecific ST and T wave abnormality Abnormal ECG When compared with ECG of 04-DEC-2020 06:49, Non-specific change in ST segment in Lateral leads Referred By: Rekha Castrejon Electronically Signed By:Dmitry Garcia
[2022-05-14] MEDS: 0.9 % Sodium Chloride 1,000 ML 999 ML IV (16:03)
[2022-05-14 16:12] LABS: MANUAL DIFF FLAG NO
[2022-05-14 16:15] LABS: Basophils Absolute Auto 0.1 X10*3/uL (0.0-0.2); Basophils Percent Auto 1.3 % (0-2); Eosinophils Absolute Auto 0.1 X10*3/uL (0.0-0.4); Eosinophils Percent Auto 1.8 % (0-4); Hematocrit 39.7 % (37.0-47.0); Imm Gran Abs Auto 0.01 X10*3/uL (0.00-0.03); Imm Gran Pct Auto 0.2 % (0.0-0.4); Lymphocytes Absolute Auto 1.6 X10*3/uL (1.2-4.9); Lymphocytes Percent Auto 35.7 % (20-40); Mean Corpuscular HGB Conc 32.7 g/dl (31.0-35.0); Mean Corpuscular Hemoglobin 29.5 pg (27.0-33.0); Monocytes Absolute Auto 0.3 X10*3/uL (0.1-1.2); Monocytes Percent Auto 6.4 % (2-11); Neutrophils Absolute Auto 2.5 x10*3/uL (2.0-8.3); Neutrophils Percent Auto 54.6 % (45-73); Platelet Count 228 X10*3/uL (160-400); Red Blood Count 4.41 X10*6/uL (4.20-5.50); Red Cell Distribution Width 12.8 % (11.0-16.0); White Blood Count 4.5 X10*3/uL (4.8-10.8)
[2022-05-14 16:21] LABS: Appearance Urine CLEAR; Color Urine YELLOW; Glucose Urine UA NEG (NEG); Leukocyte Esterase Urine NEG (NEG); Nitrite Urine NEG (NEG); Specific Gravity - Urine >= 1.030 (1.005-1.025); Urine Blood NEG (NEG); Urine Ketones NEG (NEG); Urine Protein NEG (NEG-TRACE)
[2022-05-14 16:35] LABS: Alanine Aminotransferase 12 U/L (0-31); Albumin Level 4.3 g/dL (3.5-5.0); Alkaline Phosphatase 56 U/L (39-117); Anion Gap 10 (12-20); Aspartate Amino Transferase 20 U/L (5-31); Bilirubin Direct 0.2 mg/dL (0.0-0.5); Bilirubin Total 0.5 mg/dL (0.0-1.0); Blood Urea Nitrogen 6 mg/dL (9-16); Calcium 9.7 mg/dL (8.4-10.2); Carbon Dioxide 29 mmol/L (22-29); Chloride 104 mmol/L (96-108); Creatinine Clr Calc Pharmacy 78.5; Estimated Glomerular Filt Rate > 60; Glucose Random 79 mg/dL (60-115); Magnesium 1.9 mg/dL (1.6-2.6); Potassium 4.7 mmol/L (3.3-5.1); Sodium 138 mmol/L (135-145); Total Protein 7.1 g/dL (6.5-8.0)
[2022-05-14 16:37] LABS: UPreg QC Valid YES; Urine Pregnancy POSITIVE (NEGATIVE)
[2022-05-14 16:56] LABS: TSH reflex Free T4 1.45 uIU/mL (0.32-4.0)
[2022-05-14 17:31] LABS: HCG Quantitative 3 mIU/mL
== END 2022-05-14 18:11 | disposition home or self-care (01) ==
PROVIDERS: Physician Assistant; Emergency Provider Emergency Medicine; PCP Internal Medicine Geriatric Medicine
DX: R53.83 Other fatigue (principal); Z32.01 Encounter for pregnancy test, result positive; Z20.822 Contact with and (suspected) exposure to COVID-19
CPT/HCPCS: 36415; 71045; 80048; 80076; 81003; 81025; 83735; 84443; 84702; 85025; 87502; 87635; 93005; 96360; 99284

== ENCOUNTER 2022-05-16 10:38 | Outpatient (REF) | payer MEDICAID, SELFPAY ==
[2022-05-16 13:04] LABS: HCG Quantitative 3 mIU/mL
== END 2022-05-16 10:39 | disposition home or self-care (01) ==
LOC: HO.LAB 10:38
PROVIDERS: Absent Provider Obstetrics & Gynecology; PCP Internal Medicine Geriatric Medicine; Visit Provider Emergency Medicine
DX: O20.9 Hemorrhage in early pregnancy, unspecified (principal)
CPT/HCPCS: 36415; 84702

== ENCOUNTER 2022-05-22 13:58 | Emergency (ER) | payer MEDICAID, SELFPAY ==
--- NOTE | ~2022-05-22 | US_ITS ---
EXAMINATION: US PELVIS CLINICAL INFORMATION: Pelvic pain COMPARISON: None TECHNIQUE: Ultrasound of the pelvis is performed using both transabdominal and transvaginal transducers along with Doppler. Transvaginal imaging is performed due to inadequate visualization transabdominally. FINDINGS: Uterus: The uterus is anteverted and measures 7.4 x 2.7 x 3.7 cm. The double wall endometrial thickness is 8 mm. The uterus is smooth in contour and has normal myometrial echogenicity. No visible fibroid. There is a 4 x 2 mm cyst/focus of fluid within the endometrium in the lower uterine segment of uncertain etiology and significance. Adnexa: Both ovaries are visualized. There is normal color flow to the adnexa. There is no ovarian torsion. There is no pelvic ascites or fluid collection. Right ovary measures 3.2 x 1.9 x 2.6 cm. Left ovary measures 2.9 x 2.5 x 2.4 cm. US/US pelvic and transvaginal IMPRESSION: There is a 4 x 2 mm focus of fluid or cyst within the endometrial canal of the lower uterine segment of uncertain etiology and significance. This could be followed with ultrasound in 6 weeks. Otherwise normal endometrium. Normal-appearing ovaries.
[2022-05-22 14:29] VITALS: BP 104/68; PULSE 74; RESP 16; TEMP 36.8; O2SAT 100; BMI 17.2
--- NOTE | 2022-05-22 17:53 | ED.ABDPAIN ---
HPI - Abdominal Pain General Chief Complaint: Abdominal Pain Stated Complaint: lower back pain Time Seen by Provider: 05/22/22 17:52 Source: patient Mode of arrival: ambulatory Limitations: no limitations History of Present Illness HPI narrative: Patient 46 years old history of depression anxiety was seen here on 05/14 hCG was 3, diagnosed possible early patient repeat ECG after 2 days it was still 3 no vaginal bleeding patient last menstrual period 2 months ago. Comes here now for 2 days complaining of pelvic pain and left flank pain no urinary complaints no nausea no vomiting Related Data Home Medications Medication Instructions Recorded Confirmed fluoxetine 20 mg capsule (Prozac) 20 mg PO BID 12/26/20 01/24/22 iloperidone 6 mg tablet (Fanapt) 6 mg PO BID 12/26/20 01/24/22 quetiapine 300 mg tablet,extended 600 mg PO BEDTIME 12/26/20 01/24/22 release 24 hr (Seroquel XR) Previous Rx's Medication Instructions Recorded omeprazole 20 mg capsule,delayed 20 mg PO BID 30 days #60 caps 01/23/21 release omeprazole 20 mg capsule,delayed 20 mg PO BID 30 days #60 caps 01/24/22 release sucralfate 100 mg/mL oral 10 ml PO BID #420 mL 05/10/22 suspension (Carafate) ibuprofen 600 mg tablet 600 mg PO Q6H PRN pain #20 tabs 05/22/22 Allergies Allergy/AdvReac Type Severity Reaction Status Date / Time No Known Allergies Allergy Verified 05/14/22 13:57 Review of Systems Review of Systems Yes all other systems are reviewed and are negative [facility] Past Medical History Medical History Anxiety GERD (gastroesophageal reflux disease) Surgical History History of esophagogastroduodenoscopy (EGD) History of excision of pilonidal cyst Hx of tonsillectomy Family History Family History Father No problems noted. Mother No problems noted. Social History Social History Household Members: None Household Members Other:: alone Alcohol intake: current Alcohol intake frequency: does not drink Advance Directives: No Advance Directives Information Provided: No Current occupational status: disabled Physical Exam ED Vital Signs: Vital Signs - 24 hr 05/22/22 14:29 05/22/22 18:20 05/22/22 20:22 Temperature 98.2 F 98.1 F 98.2 F Pulse Rate 74 63 72 Respiratory Rate 16 16 16 Blood Pressure 104/68 118/61 114/57 L Pulse Oximetry 100 98 98 Oxygen Delivery Method Room Air Room Air Room Air BMI result Body Mass Index 17.2 Appearance: Alert. Oriented X3. No acute distress. Eyes: PERRLA, No Nystagmus ENT: Pharynx normal. Oral Mucosa moist Neck: Normal inspection. Neck supple. CVS: Normal heart rate and rhythm. Pulses normal. Respiratory: No respiratory distress. Equal air entry bilateral, no wheezing/rales/rhonchi Abdomen: Soft mild suprapubic tenderness no guarding or rebound tenderness. Bowel sounds are present, no mass palpable, no CVA tenderness Skin: Skin warm and dry. Normal skin color. Normal skin turgor. Extremities: No lower extremity edema. No calf tenderness Neuro: Oriented X 3. No motor deficit. No sensory deficit.No cerebellar signs , cranial nerves II-XII intact MDM - Abdominal Pain MDM Narrative Medical decision making narrative: Patient ultrasound showed bilateral small ovarian cyst no signs of IUP hCG negative. Patient pain is likely from ovarian cysts will discharge patient home on ibuprofen Medical Records Attestation: I reviewed the patient's medical records. Lab Data Attestation: I reviewed the patient's lab results. Labs: Lab Results 05/22/22 05/22/22 Range/Units 18:33 18:33 Beta HCG, Quant < 2 mIU/mL Urine Color YELLOW Urine Appearance CLEAR Urine pH 7.0 (5.0-8.0) Ur Specific [place] 1.010 (1.005-1.025) Urine Protein NEG (NEG-TRACE) MG/DL Urine Glucose (UA) NEG (NEG) MG/DL Urine Ketones NEG (NEG) MG/DL Urine Blood NEG (NEG) Urine Nitrite NEG (NEG) Ur Leukocyte Esterase NEG (NEG) Discharge Plan Discharge Clinical Impression: Ovarian cyst Patient Disposition: Home, Self-Care Instructions: Ovarian Cyst (ED) Additional Instructions: Your blood test is negative for and ultrasound also negative for You have small cyst on the ovaries on both sides Take ibuprofen for pain 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
[2022-05-22 18:20] VITALS: BP 118/61; PULSE 63; RESP 16; TEMP 36.7; O2SAT 98
[2022-05-22 18:40] LABS: Appearance Urine CLEAR; Color Urine YELLOW; Glucose Urine UA NEG (NEG); Leukocyte Esterase Urine NEG (NEG); Nitrite Urine NEG (NEG); Urine Blood NEG (NEG); Urine Ketones NEG (NEG); Urine Protein NEG (NEG-TRACE)
[2022-05-22 19:02] LABS: HCG Quantitative < 2 mIU/mL
[2022-05-22 20:22] VITALS: BP 114/57; PULSE 72; RESP 16; TEMP 36.8; O2SAT 98
[2022-05-22] MEDS: Ibuprofen 600 MG TABLET PO (20:51)
== END 2022-05-22 20:55 | disposition home or self-care (01) ==
PROVIDERS: Emergency Provider Internal Medicine; PCP Internal Medicine Geriatric Medicine
DX: N83.202 Unspecified ovarian cyst, left side (principal); N83.201 Unspecified ovarian cyst, right side; M54.50 Low back pain, unspecified; R10.2 Pelvic and perineal pain; F41.1 Generalized anxiety disorder; F43.0 Acute stress reaction; Z79.899 Other long term (current) drug therapy
CPT/HCPCS: 36415; 76830; 76856; 81003; 84702; 99283; 99284

== ENCOUNTER 2022-11-20 14:57 | Outpatient (REF) | payer MEDICAID, SELFPAY ==
[2022-11-20 18:27] LABS: Lipase 36 U/L (8-78); TSH reflex Free T4 1.98 uIU/mL (0.32-4.0)
[2022-11-20 18:37] LABS: Vitamin B12 965 pg/mL (200-900)
[2022-11-23 14:47] LABS: H Pylori Breath Test Negative (Negative)
[2022-11-26 15:07] LABS: Vitamin D 25-OH, D2 <4 ng/mL; Vitamin D 25-OH, D3 35 ng/mL; Vitamin D 25-OH, Total 35 ng/mL (30-100)
== END 2022-11-20 14:58 | disposition home or self-care (01) ==
LOC: HO.LAB 14:57
PROVIDERS: PCP Internal Medicine Geriatric Medicine; Visit Provider Nurse Practitioner Family
DX: K21.9 Gastro-esophageal reflux disease without esophagitis (principal); K58.1 Irritable bowel syndrome with constipation; K20.90 Esophagitis, unspecified without bleeding; R14.0 Abdominal distension (gaseous); R10.9 Unspecified abdominal pain; E55.9 Vitamin D deficiency, unspecified
CPT/HCPCS: 36415; 82306; 82607; 82746; 83013; 83690; 84443; 86003; 99212

== ENCOUNTER 2022-12-10 14:18 | Outpatient (REF) | payer MEDICAID, SELFPAY ==
[2022-12-18 01:40] LABS: Pancreatic Elastase-1 >500 mcg/g
== END 2022-12-10 14:19 | disposition home or self-care (01) ==
LOC: HO.LNP 14:18
PROVIDERS: Visit Provider Nurse Practitioner Family
DX: R10.9 Unspecified abdominal pain (principal)
CPT/HCPCS: 82656

== ENCOUNTER → 2023-01-01 15:07 | Outpatient (BNVA) | payer MEDICAID, SELFPAY | PROVIDERS: PCP Internal Medicine Geriatric Medicine; Referring Provider Internal Medicine Geriatric Medicine; Visit Provider Nurse Practitioner Family | DX: K21.9 Gastro-esophageal reflux disease without esophagitis (principal); K58.1 Irritable bowel syndrome with constipation; K59.04 Chronic idiopathic constipation; R14.0 Abdominal distension (gaseous); M54.50 Low back pain, unspecified; G89.29 Other chronic pain | CPT/HCPCS: 99212 ==

== ENCOUNTER 2023-01-23 08:13 | Outpatient (REF) | payer MEDICAID, SELFPAY ==
--- NOTE | ~2023-01-23 | US_ITS ---
EXAMINATION: US ABDOMEN COMPLETE CLINICAL INFORMATION: Abdominal pain. COMPARISON: Abdominal ultrasound 09/18/2017 TECHNIQUE: Real-time imaging of the abdominal viscera. FINDINGS: PANCREAS: Multiple echogenic parenchymal foci in the pancreas, possibly calcifications in similar to prior. Pancreas otherwise unremarkable. ABDOMINAL AORTA: The proximal, mid, and distal segments are normal in caliber. INFERIOR VENA CAVA: Visualized portions are normal. LIVER: Normal. The liver is normal in size. The liver contour is normal. Parenchymal echogenicity is normal. No focal hepatic lesion. There is no intrahepatic biliary duct dilatation seen. GALLBLADDER: Normal. The gallbladder is physiologically distended without evidence of stones, sludge, polyps, wall thickening or pericholecystic fluid. COMMON BILE DUCT: Normal in caliber measuring 0.2 cm in diameter. RIGHT KIDNEY: Normal. No hydronephrosis. No renal calculi or focal parenchymal lesions. The kidney measures 9.5 cm in maximum dimension. LEFT KIDNEY: Normal. No hydronephrosis. No renal calculi or focal parenchymal lesions. The kidney measures 11.7 cm in maximum dimension. SPLEEN: Normal. The spleen measures 9 cm in maximum dimension. FREE FLUID: None. US/US abdomen complete IMPRESSION: 1. No evidence of cholelithiasis or acute cholecystitis. 2. No biliary ductal dilation. 3. Normal liver and spleen. 4. No hydronephrosis or nephrolithiasis. 5. Multiple echogenic foci in the pancreas, possibly tiny nonshadowing calcifications. Findings could potentially be sequela of chronic pancreatitis.
== END 2023-01-23 08:14 | disposition home or self-care (01) ==
LOC: HO.HMGCX 08:13
PROVIDERS: PCP Internal Medicine Geriatric Medicine; Visit Provider Nurse Practitioner Family
DX: R10.9 Unspecified abdominal pain (principal)
CPT/HCPCS: 76700

== ENCOUNTER → 2023-02-27 13:46 | Outpatient (BNVA) | payer MEDICAID, SELFPAY | PROVIDERS: PCP Internal Medicine Geriatric Medicine; Referring Provider Internal Medicine Geriatric Medicine; Visit Provider Nurse Practitioner Family | DX: K21.9 Gastro-esophageal reflux disease without esophagitis (principal); K58.1 Irritable bowel syndrome with constipation; K59.04 Chronic idiopathic constipation; R14.0 Abdominal distension (gaseous) | CPT/HCPCS: 99212 ==

== ENCOUNTER 2023-08-01 13:43 | Outpatient (AMB) | payer MEDICAID, SELFPAY ==
[2023-08-01 14:06] VITALS: BP 116/64; PULSE 71; BMI 18.6
--- NOTE | 2023-08-01 14:06 | MHC.OFFVIS ---
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 Intake Note: New patient dx chest tightness c/o sob and chest tightness lasting a few minutes Allergies No Known Allergies Allergy (Verified 02/27/23 14:02) Medication List - Last Reconciled 08/01/23 by Jairo Perez MD cyclobenzaprine 5 mg PO BEDTIME PRN docusate sodium 100 mg PO BEDTIME esomeprazole magnesium (Nexium) 40 mg PO DAILY famotidine (Pepcid) 20 mg PO BEDTIME fluoxetine (Prozac) 20 mg PO BID ibuprofen 600 mg PO Q6H PRN linaclotide (Linzess) 290 mcg PO QAM polyethylene glycol 3350 (Miralax) 17 grams PO DAILY simethicone (Gas Relief (simethicone)) 125 mg PO TID-QID PRN HPI HPI Comments History of Present Illness Details Thank you for referring Lizzy in cardiology consultation today for recent episode of syncope. She is a 47-year-old woman with prior history of depression and anxiety. She lives alone. She says about 3 months ago in April while she was going to the bathroom after getting of from watching television about 1.30 in the morning she found herself on the floor. She thinks she was out for about half an hour as she looked at the clock from the time she got up to when she woke up was about half an hour. She does not recall having any prodrome of symptoms. Denies any symptoms of lightheadedness, palpitations, chest pain or shortness of breath. Following that she did notice that she had soiled herself or have a tongue bite. This was not a witnessed episode. Since then she has had no recurrent episode. She denies any symptoms of palpitations, lightheadedness. Denies any symptoms exertional chest pain or shortness of breath. She says she drinks plenty of water every day about 60 oz. she does not like to salt her diet. No recent changes in her health. [facility] Medical History Anxiety Depression GERD (gastroesophageal reflux disease) Surgical History History of esophagogastroduodenoscopy (EGD) History of excision of pilonidal cyst Hx of tonsillectomy Family History Father No problems noted. Mother No problems noted. Social History Household Members: None Household Members Other:: alone Alcohol intake: current Alcohol intake frequency: does not drink Current occupational status: disabled Review of Systems Const Denies chills, Denies daytime sleepiness, Denies fatigue, Denies fever(s), Denies frequent falls, Denies poor appetite, Denies snoring, Denies stops breathing during sleep, Denies weakness, Denies weight gain and Denies weight loss Eyes Denies loss of vision ENT Denies dizziness and Denies hearing loss Card Denies chest pain, Denies claudication, Denies leg edema, Denies lightheadedness, Denies palpitations, Denies dyspnea, Denies dyspnea on exertion and Denies orthopnea Resp Denies cough, Denies excessive phlegm production, Denies dyspnea, Denies dyspnea on exertion, Denies snoring and Denies wheezing GI Denies abdominal pain, Denies hematochezia, Denies change in bowel habits, Denies nausea and Denies vomiting Denies urinary frequency and Denies dysuria Musc Denies arthralgias, Denies muscle weakness, Denies numbness and Denies other (frequent falls) Skin/Breast Denies nail changes and Denies rash Neuro Denies Abnormal speech present, Denies dizziness, Denies frequent falls, Denies loss of vision, Denies memory loss, Denies numbness and Denies weakness Psych Denies depression and Denies memory loss Endo Denies fatigue and Denies palpitations Emanuel/Lymph Reports easy bruising and Reports other (anemia) Aller/Immun Denies wheezing Physical Exam Vital Signs: Last Vital Signs Pulse 71 08/01/23 14:06 BP 116/64 08/01/23 14:06 BMI result Body Mass Index 18.6 Const General: cooperative, comfortable, no acute distress, alert, awake and Physically active Orientation/consciousness: patient oriented x3 Limitations: no limitations HEENT Head: Yes normocephalic and Yes atraumatic Neck Neck: Yes trachea midline, Yes supple and Yes no JVD Resp Effort & Inspection: normal respiratory effort Auscultation: clear to auscultation bilaterally Cardio Jugular venous distension: no JVD Palpation: normal PMI Rate: regular rate Rhythm: regular rhythm Heart sounds: S1 normal heart sound present, S2 normal heart sound present, no click, no gallops, no murmurs and no rubs GI Auscultation: normal bowel sounds Skin General skin exam: no rashes or lesions noted Neuro General: patient oriented x3 and no focal motor deficits Speech: No Abnormal speech present Extrem General: Yes no clubbing, cyanosis or edema Psych Appearance: grossly normal Office Procedures EKG Details: EKG shows normal sinus rhythm with normal EKG [id number], Complete Assessment & Plan Assessment & Plan (1) Syncope: Code(s): R55 - Syncope and collapse Plan: Syncope with unclear etiology with some atypical features especially post syncope being out for half an hour which is highly unusual. Possibility include orthostatic syncope and/or vasovagal syncope. Cardiac arrhythmias are extremely less likely. Will suggest further testing with echocardiogram to evaluate for structural heart disease. Also suggest a Holter monitor to assess for any cardiac arrhythmias either Yonis arrhythmias or tachyarrhythmias. Also suggest head-up tilt-table test to assess for hemodynamic response to head-up tilting. Will follow up in 6 weeks time after above-mentioned test. Thank you for allowing me to partake in her care Coding Level of Care Code New Pt Level 4 (72269) Diagnoses Syncope R55 CPT Codes EKG - CPT: 67370-[id number], Complete ([id number])
== END 2023-08-01 14:44 | disposition home or self-care (01) ==
PROVIDERS: PCP Internal Medicine Geriatric Medicine; Referring Provider Internal Medicine Geriatric Medicine; Visit Provider Internal Medicine Cardiovascular Disease
DX: R55 Syncope and collapse (principal)
CPT/HCPCS: 93010; 99204

== ENCOUNTER → 2023-08-01 13:43 | Outpatient (BNVA) | payer MEDICAID, SELFPAY | PROVIDERS: PCP Internal Medicine Geriatric Medicine; Referring Provider Internal Medicine Geriatric Medicine; Visit Provider Internal Medicine Cardiovascular Disease | DX: R55 Syncope and collapse (principal) | CPT/HCPCS: 93005; 99202 ==

== ENCOUNTER → 2023-09-03 13:42 | Outpatient (REF) | payer MEDICAID, SELFPAY ==
--- NOTE | 2023-09-03 13:45 | CA_ITS ---
Transthoracic Echocardiogram Patient (Last, First, Middle): Lizzy Smiley, Gender: Female Date of : 1975 Age: 47 Procedure Date: 09/03/2023 Procedure Type: Transthoracic Echocardiogram Location: OP Height: 170.18 cm Weight: 54.63 kg BSA: 1.63 m2 Heart Rate: 65 bpm BP: 116 / 64 mmHg Credit Portfolio Advisor: BERTRAND Referring MD: Jairo Perez MD Symptoms: R55 - Syncope and collapse Study Quality: Adequate ECG Rhythm: Sinus Conclusions: - The left ventricular systolic function is low normal. The visually estimated ejection fraction is between 50-55%. - No obvious valvular pathology seen on this study. - There is an interatrial septal aneurysm seen bowing to the right. Findings Left Ventricle Normal left ventricular cavity size. There is normal left ventricular wall thickness. The left ventricular systolic function is low normal. The visually estimated ejection fraction is between 50-55%. There is no evidence of regional wall motion abnormalities. Diastolic function is normal for age. Right Ventricle Normal right ventricular cavity size and systolic function. Atria Both atria are normal in size. There is an interatrial septal aneurysm seen bowing to the right. There is no evidence of interatrial shunt by color Doppler. Aortic Valve There is a normal trileaflet aortic valve. There is no aortic valve stenosis. There is no aortic valve regurgitation. Mitral Valve The mitral valve appears normal. There is no mitral valve regurgitation. There is no mitral valve stenosis. Pulmonic Valve The pulmonic valve is likely normal. Tricuspid Valve Normal tricuspid valve structure. There is no tricuspid valve regurgitation. Tricuspid regurgitation envelope is inadequate for calculation of right ventricular systolic pressure. Great Vessels The asc aorta is normal in size. Venous The inferior vena cava is normal in size and collapses greater than 50% with inspiration. Pericardium/Pleural There is no evidence of pericardial effusion. Prior Study Comparison No prior study available for comparison. Recommendations, Care & Conclusions No obvious valvular pathology seen on this study. Measurements 2D Linear Measurements IVSd: 0.68 0.6-0.9/0.6-1.0 cm LVIDd: 4.25 3.9-5.3/4.2-5.9 cm LVIDd Index: 2.61 2.4-3.2/2.2-3.1 cm/m2 LVIDs: 3.09 2.0-3.6 cm LVPWd: 0.73 0.7-1.1 cm LA Diam: 2.70 2.7-3.8/3.0-4.0 cm LAIDs Index: 1.66 1.5-2.3 cm/m2 LV Mass: 108.64 67-162/88-224 g LV Mass Index: 66.65 43-95/49-115 g/m2 LVOT Diam: 2.20 3.0+(-)1.3 cm 2D Systolic Function EF 4C: 52.70 >55% Mitral Valve MV Pk E: 0.48 MV PK A: 0.37 MV Decel Time: 195.00 E/A: 1.30 E'Lateral: 11.50 E'Medial: 8.38 E/E' Med: 5.70 E/E' Lat: 4.10 PHT: 57.00 MVA PHT: 3.86 Decel Barrow: 2.43 Aortic Valve AoV Pk Coy: 0.67 AoV Pk Grad: 2.00 RICKY: 3.96 LVOT LVOT Pk Coy: 0.70 LVOT Mn Coy: 0.48 LVOT VTI: 0.15 LVOT Pk Grad: 2.00 LVOT Mn Grad: 1.00 LVOT Diam: 2.20 LVOT Area: 3.80 Diastolic Function MV Pk E: 0.48 MV Pk A: 0.37 E/A: 1.30 E'Medial: 8.38 E/E' Med: 5.70 E' Laterial: 11.50 E/E' Lat: 4.10 Right Ventricle TAPSE (mm): 17.90 TVS' Coy: 9.10 Tricuspid Valve RA Press: 3.00 Great Vessels Aorta Sinus of Valsalva: 2.90 2.0-3.5 cm Ao Asc: 2.70 2.1-3.4 cm Pulmonary Valve PV Pk Coy: 0.61 Peak PV Grad: 1.00 Updated in Other Vendor System with Status of Final Alphonse Cerda MD electronically signed on 09/04/2023 11:49:15 AM with status of Final
== END ==
LOC: HO.CARD 13:42
PROVIDERS: PCP Internal Medicine Geriatric Medicine; Visit Provider Internal Medicine
DX: R55 Syncope and collapse (principal)
CPT/HCPCS: 93225; 93306

== ENCOUNTER → 2023-09-03 13:45 | Outpatient (BNV) | payer MEDICAID, SELFPAY | PROVIDERS: PCP Internal Medicine Geriatric Medicine; Visit Provider Internal Medicine | DX: I47.10 Supraventricular tachycardia, unspecified (principal) | CPT/HCPCS: 93227; 93306 ==

== ENCOUNTER 2023-10-17 13:01 | Outpatient (AMB) | payer MEDICAID, SELFPAY ==
[2023-10-17 14:39] VITALS: BP 114/64; PULSE 69; BMI 18.2
--- NOTE | 2023-10-17 14:39 | A.OFFVIS_ITS ---
Intake Vital Signs 10/17/23 14:39 Height 5 ft 7 in Weight 115 lb 15.41 oz BMI 18.2 BP 114/64 Pulse 69 Pulse Source Pulse Oximeter Intake Visit Reasons: 6 week follow up after testing Education Administrator Required: Yes Education Administrator Language: [employer] Name: deniz [id number] Allergies No Known Allergies Allergy (Verified 10/17/23 14:44) Medication List - Last Reconciled 10/19/23 by DOMINICK Guzman cyclobenzaprine 5 mg PO BEDTIME PRN docusate sodium 100 mg PO BEDTIME esomeprazole magnesium (Nexium) 40 mg PO DAILY famotidine (Pepcid) 20 mg PO BEDTIME fluoxetine (Prozac) 20 mg PO BID ibuprofen 600 mg PO Q6H PRN linaclotide (Linzess) 290 mcg PO QAM polyethylene glycol 3350 (Miralax) 17 grams PO DAILY simethicone (Gas Relief (simethicone)) 125 mg PO TID-QID PRN HPI 6 week follow up after testing HPI Details Lizzy is a 48 year old female with no known cardiac history who recently had a syncopal event. On last visit an echocardiogram, holter monitor and tilt table test were ordered. Today she reports that she has been feeling well. No recurrent syncope, no lightheadedness, presyncope or falls. No chest discomfort, palpitations, shortness of breath. She reports good activity tolerance. Walks routinely for exercise. Has been trying to drink more water. [facility] Medical History Anxiety Depression GERD (gastroesophageal reflux disease) Surgical History History of excision of pilonidal cyst History of esophagogastroduodenoscopy (EGD) Hx of tonsillectomy Family History Father No problems noted. Mother No problems noted. Social History Household Members: None Household Members Other:: alone Alcohol intake: current Alcohol intake frequency: does not drink Current occupational status: disabled Review of Systems Const All systems reviewed & are unremarkable except as noted in HPI and below Card Denies chest pain, Denies chest pain at rest, Denies chest pain with activity, Denies rapid heart rate, Denies pedal edema, Denies edema, Denies leg edema, Denies lightheadedness, Denies palpitations, Denies dyspnea, Denies dyspnea on exertion and Denies orthopnea Resp Denies cough, Denies dyspnea and Denies dyspnea on exertion GI Denies hematochezia and Denies change in stool character Musc Denies abnormal gait, Denies muscle weakness, Denies numbness, Denies radiating pain into limb, Denies stiffness and Denies tingling Neuro Denies abnormal gait, Denies numbness and Denies tingling Endo Denies palpitations Physical Exam Vital Signs: Last Vital Signs Pulse 69 10/17/23 14:39 BP 114/64 10/17/23 14:39 BMI result Body Mass Index 18.2 Const General: cooperative, healthy appearing, comfortable and no acute distress Orientation/consciousness: patient oriented x3 Neck Neck: Yes normal visual inspection Resp Effort & Inspection: normal respiratory effort Auscultation: clear to auscultation bilaterally, no crackles, no rales, no rhonchi and no wheezes Cardio Jugular venous distension: no JVD Rate: regular rate Rhythm: regular rhythm Heart sounds: S1 normal heart sound present, S2 normal heart sound present, no murmurs and no rubs Neuro General: patient oriented x3 Extrem General: Yes normal to inspection Psych Appearance: grossly normal Mental Status: mental status grossly normal Speech and movement: Normal speech and movement present Assessment & Plan Assessment & Plan (1) Syncope: Code(s): R55 - Syncope and collapse Qualifiers: Syncope type: vasovagal syncope Qualified Code(s): R55 - Syncope and collapse Plan: Episode of syncope, April 2023, when she got up in night to use bathroom and found herself on the floor. She believed her LOC was 30 min long. No warning signs prior to event. She reportedly did soil herself and bit her tongue. She did not go to the ED that night. PCP referred her to cardiology and she was seen 08/01/23. EKG showed SR, normal UT, QTc, QRS. Echo done on 09/03/23 showed EF 50- 55%, no valve abnormalities, intraatrial septal aneurym with bowing to right. Pt was informed of this finding and that it is not the cause of her syncope. Does not need further testing for PFO at this time as she has no hx TIA/CVA, neuro changes. Holter monitor done on 09/03/23 for 2 days shows SR, average rate 74, rate rante 55-137, rare SVE and VE. She refused to undergo the tilt table test that was ordered. She has had no recurrent syncope events and no presyncope. Her episode was felt to be either orthostatic hypotension event or vasovagal syncope. Reviewed the need to recognized any recurrent symptoms and get into a sitting or laying down position until symptoms resolve. Maintain good hydration. ED care if need for symptoms. Cardiology follow up as needed. Coding Level of Care Code Est Pt Level 3 (53328) Diagnoses Vasovagal syncope R55 Syncope type: vasovagal syncope Time Spent (min) 22
== END 2023-10-17 15:18 | disposition home or self-care (01) ==
PROVIDERS: PCP Internal Medicine Geriatric Medicine; Visit Provider Nurse Practitioner Family
DX: R55 Syncope and collapse (principal)
CPT/HCPCS: 99213

== ENCOUNTER → 2023-10-17 13:01 | Outpatient (BNVA) | payer MEDICAID, SELFPAY | PROVIDERS: PCP Internal Medicine Geriatric Medicine; Visit Provider Nurse Practitioner Family | DX: R55 Syncope and collapse (principal) | CPT/HCPCS: 99212 ==

== ENCOUNTER 2023-12-20 11:28 | Outpatient (AMB) | payer MEDICAID, SELFPAY ==
--- NOTE | 2023-12-20 11:36 | A.OFFVIS_ITS ---
Intake Vital Signs 12/20/23 11:42 Height 5 ft 7 in Weight 119 lb 0.794 oz BMI 18.6 BP 85/50 L Blood Pressure Location Lt brachial Position Sitting Pulse 72 Intake Visit Reasons: 3 month f/u GERD, GAS Intake Note: Lizzy presents in the office as a 3 month follow up for GERD and GAS. CC: Patient states that she had some trouble getting her Linzess on time due to issues with [employer]. She states she has to take the Linzess BID in order to have a BM. 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 Discussed with patient avoiding dietary triggers and late night snacking. Staying upright for minimal 3 hours after meals discussed with patient. Postprandial abdominal bloating Patient is eating better, so more in meals, avoiding late night snacking. Now that she is moving her bowels better she does not experience abdominal bloating anymore. IBS (irritable bowel syndrome) Patient reports significant improvement in abdominal bloating, cramping. Patient is moving her bowels much better, she feels like she does not empty it completely, will increase Linzess to 290 mcg daily. Chronic idiopathic constipation Increase Linzess to 290 mcg daily. Patient was also encouraged to increase fluid intake and activity to promote better bowel motility. I will see patient in 3 months, sooner on as needed basis. We will discuss her going again for upper endoscopy to evaluate treatment. Patient will also be sent for colonoscopy. Patient is agreeable to this plan and verbalizes understanding of instructions. She was given the opportunity to ask questions and all questions answered. ? Thank you for allowing me to participate in her care Plan Medications New linaclotide (Linzess) 290 mcg PO QAM 30 caps 4RF K59.00 - Constipation, unspecified Refilled simethicone (Gas Relief (simethicone)) 125 mg PO TID-QID PRN 120 caps 2RF abdominal distention R14.0 - Abdominal distension (gaseous) esomeprazole magnesium (Nexium) 40 mg PO DAILY 30 caps 5RF K21.9 - Gastro- esophageal reflux disease without esophagitis famotidine (Pepcid) 20 mg PO BEDTIME 30 tabs 3RF K21.9 - Gastro-esophageal reflux disease without esophagitis Discontinued linaclotide (Linzess) Discontinued Reason: Doctor's Order 145 mcg PO DAILY 30 caps 2RF TODAY'S VISIT Patient is here today for follow-up. Patient missed few of her appointments due to transportation. Patient reports that she was unable to get her Linzess for few weeks and she was having trouble moving her bowels. No BM for 5-6 days. Patient reports abdominal bloating and cramping. Patient reports that her symptoms of acid reflux are suppressed. Patient is taking Nexium in the morning and famotidine at bedtime. Patient denies any melena, hematochezia, unintentional weight loss or ribbon like stools. Patient denies any dyspepsia, dysphagia or odynophagia. [facility] Medical History GERD (gastroesophageal reflux disease) Depression Anxiety Surgical History History of excision of pilonidal cyst History of esophagogastroduodenoscopy (EGD) Hx of tonsillectomy Family History Father No problems noted. Mother No problems noted. Social History Household Members: None Household Members Other:: alone Alcohol intake: current Alcohol intake frequency: does not drink Current occupational status: disabled Review of Systems Const Denies weight gain and Denies weight loss ENT Reports no additional complaints, Denies dysphagia and Denies odynophagia Card Reports no additional complaints Resp Reports no additional complaints GI Denies abdominal pain, Denies belching, Denies melena, Denies bloating, Denies change in bowel habits, Denies dysphagia, Denies excessive flatus, Denies dyspepsia, Denies heartburn, Denies diarrhea, Denies loose stools, Denies nausea, Denies odynophagia and Denies vomiting Reports no additional complaints Musc Reports no additional complaints Neuro Reports no additional complaints Psych Reports no additional complaints Endo Reports no additional complaints Physical Exam Vital Signs: Last Vital Signs Pulse 72 12/20/23 11:42 BP 85/50 L 12/20/23 11:42 BMI result Body Mass Index 18.6 Const General: healthy appearing, no acute distress and well developed Nutritional Appearance: well nourished Orientation/consciousness: patient oriented x3 Resp Effort & Inspection: normal respiratory effort, able to speak in complete sentences, no tracheal deviation and symmetric chest movement Auscultation: clear to auscultation bilaterally Cardio Rate: regular rate GI Inspection: Yes normal to inspection and No distended Palpation (GI): Soft to palpation, not firm, nontender and No hepatosplenomegaly present Auscultation: normal bowel sounds General: Yes no CVA tenderness Back/Spine/Pelvis Back: no CVA tenderness Skin General skin exam: elasticity normal, turgor normal and dry skin Neuro General: patient oriented x3 Psych Appearance: grossly normal Mental Status: mental status grossly normal Assessment & Plan Assessment & Plan (1) GERD (gastroesophageal reflux disease): Code(s): K21.9 - Gastro-esophageal reflux disease without esophagitis Qualifiers: Esophagitis presence: esophagitis presence not specified Qualified Code(s): K21.9 - Gastro-esophageal reflux disease without esophagitis (2) Postprandial abdominal bloating: Code(s): R14.0 - Abdominal distension (gaseous) (3) IBS (irritable bowel syndrome): Code(s): K58.9 - Irritable bowel syndrome without diarrhea Qualifiers: Irritable bowel syndrome type: with constipation Qualified Code(s): K58.1 - Irritable bowel syndrome with constipation (4) Chronic idiopathic constipation: Code(s): K59.04 - Chronic idiopathic constipation Plan Continue Linzess. Patient was also encouraged to increase fluid intake and activity to promote better bowel motility. Continue Nexium and famotidine. Discussed with patient avoiding dietary triggers and late night snacking. Staying upright for minimum 3 hours after meals discussed with patient. I will see her in 6 months, sooner on as needed basis. Patient is agreeable to this plan and verbalizes understanding of instructions. She was given the opportunity to ask questions and all questions answered. Thank you for allowing me to participate in her care Medications: Refilled linaclotide (Linzess) 290 mcg PO QAM 30 caps 4RF K59.00 - Constipation, unspecified Coding Level of Care Code Est Pt Level 3 (75347) Diagnoses Gastroesophageal reflux disease, unspecified whether esophagitis present K21.9 Esophagitis presence: esophagitis presence not specified Postprandial abdominal bloating R14.0 Irritable bowel syndrome with constipation K58.1 Irritable bowel syndrome type: with constipation Chronic idiopathic constipation K59.04 Time Spent (min) 30 Comment 20 minutes spent with patient and additional 10 minutes spent reviewing her records
[2023-12-20 11:42] VITALS: BP 85/50; PULSE 72; BMI 18.6
== END 2023-12-20 12:50 | disposition home or self-care (01) ==
PROVIDERS: PCP Internal Medicine Geriatric Medicine; Visit Provider Nurse Practitioner Family
DX: K21.9 Gastro-esophageal reflux disease without esophagitis (principal); R14.0 Abdominal distension (gaseous); K58.1 Irritable bowel syndrome with constipation; K59.04 Chronic idiopathic constipation
CPT/HCPCS: 99213

== ENCOUNTER → 2023-12-20 11:28 | Outpatient (BNVA) | payer MEDICAID, SELFPAY | PROVIDERS: PCP Internal Medicine Geriatric Medicine; Visit Provider Nurse Practitioner Family | DX: K21.9 Gastro-esophageal reflux disease without esophagitis (principal); K58.1 Irritable bowel syndrome with constipation; K59.04 Chronic idiopathic constipation; R14.0 Abdominal distension (gaseous) | CPT/HCPCS: 99212 ==

== ENCOUNTER 2024-02-08 07:04 | Emergency (ER) | payer MEDICAID, SELFPAY ==
--- NOTE | ~2024-02-08 | CT_ITS ---
EXAMINATION: CT HEAD WITHOUT CONTRAST CLINICAL INFORMATION: Intractable left hepatic COMPARISON: CT head from 05/18/2023 TECHNIQUE: Contiguous axial imaging was performed from the skull base to vertex without intravenous administration of contrast. This CT examination was performed using dose optimization techniques as appropriate, variously including the following: *Automated exposure control *Adjustment of mA and/or kV according to patient size (this includes techniques or standardized protocols for targeted exams where dose is matched to indication/reason for exam; i.e. extremities or head) *Use of iterative reconstruction technique DLP: 620 mGy-cm FINDINGS: There is no evidence of acute intracranial hemorrhage or territorial infarction. No abnormal mass effect or midline shift is seen. May to white matter differentiation is well preserved. No extra-axial fluid collections are identified. The ventricles are normal in size. There is no abnormal attenuation within the brain parenchyma. The osseous structures and soft tissues are normal. The mastoid air cells and visualized portions of the paranasal sinuses are well aerated. CT/CT head/brain wo IV con IMPRESSION: No acute intracranial pathology.
[2024-02-08 07:09] VITALS: BP 120/68; PULSE 76; RESP 16; TEMP 36.1; O2SAT 100; BMI 18.6
--- NOTE | 2024-02-08 07:43 | ED_ITS ---
HPI - Headache General Chief Complaint: Head Injury Stated Complaint: headache s/p fall 02/04/24 Time Seen by Provider: 02/08/24 07:30 Source: patient Mode of arrival: ambulatory Limitations: no limitations History of Present Illness HPI Narrative: Patient is a 48-year-old female who presents emergency department for evaluation. She reports approximately 10 days ago she was taking out the garbage and walking downstairs when she suddenly developed severe pain to the left side of her head and a ringing sensation in the left ear which resulted in her feeling very weak and subsequently falling on the stairs. Reporting that she struck the back of her head on the trash barrel. She denies loss of consciousness. She was able to get herself back home. She presents emergency department today as she has continued to have a left posterior headache. Denies any red flag symptoms including fevers, chills, neck stiffness, malaise, aphasia, weakness, poor coordination, descriptors such as ?the worst headache ever ?or ?thunderclap?, or painful temporal region. Denies dizziness, lightheadedness, vision changes, URI symptoms, chest pain, shortness of breath, numbness or tingling of the extremities. Related Data Home Medications Medication Instructions Recorded Confirmed fluoxetine 20 mg capsule (Prozac) 20 mg PO BID 12/26/20 10/19/23 Previous Rx's Medication Instructions Recorded ibuprofen 600 mg tablet 600 mg PO Q6H PRN pain #20 tabs 05/22/22 cyclobenzaprine 5 mg tablet 5 mg PO BEDTIME PRN muscle spasm 01/01/23 #7 tabs famotidine 20 mg tablet (Pepcid) 20 mg PO BEDTIME #30 tabs 05/08/23 esomeprazole magnesium 40 mg 40 mg PO DAILY #30 caps 06/06/23 capsule,delayed release (Nexium) polyethylene glycol 3350 17 17 g PO DAILY #510 grams 08/06/23 gram/dose oral powder (Miralax) linaclotide 290 mcg capsule 290 mcg PO QAM #30 caps 12/20/23 (Linzess) docusate sodium 100 mg capsule 100 mg PO BEDTIME #90 caps 01/02/24 simethicone 125 mg chewable tablet 125 mg PO BID-TID PRN abdominal 01/10/24 (Gas Relief (simethicone)) distention #90 tabs Allergies Allergy/AdvReac Type Severity Reaction Status Date / Time No Known Allergies Allergy Verified 12/20/23 11:49 Review of Systems 2 Review of Systems: Yes all other systems are reviewed and are negative [facility] Past Medical History Attestation statement: The following information was validated with the patient. Source: old records reviewed Medical History GERD (gastroesophageal reflux disease) Depression Anxiety Surgical History History of excision of pilonidal cyst History of esophagogastroduodenoscopy (EGD) Hx of tonsillectomy Family History Family History Father No problems noted. Mother No problems noted. Social History Social History Household Members: None Household Members Other:: alone Alcohol intake: current Alcohol intake frequency: does not drink Advance Directives: No Advance Directives Information Provided: No Current occupational status: disabled Physical Exam 2 Vital Signs: Vital Signs: Last Vital Signs Temp 97 F 02/08/24 07:09 Pulse 76 02/08/24 07:09 Resp 16 02/08/24 07:09 BP 120/68 02/08/24 07:09 Pulse Ox 100 02/08/24 07:09 O2 Del Method Room Air 02/08/24 07:09 BMI result Body Mass Index 18.6 Appearance: Alert.?Oriented to person, place and time. No acute distress.?Normal affect. Head: Normocephalic, atraumatic Eyes: Pupils equal, round and reactive to light. EOMI. No nystagmus. No tenderness to palpation over the temporal region. ENT: External auditory canal normal tympanic membrane pearly coronado and intact bilaterally. Oropharynx normal. Neck: Normal inspection.? Neck supple. CVS: Heart sounds normal. Normal heart rate and rhythm.? Pulses normal.?? Respiratory: No respiratory distress.? Lung sounds clear to auscultation bilaterally?? Abdomen: Soft and non-tender. Normoactive bowel sounds. ?? Skin: Skin warm and dry.? Normal skin color.? ?? Extremities: No lower extremity edema.? Neuro: Moves all extremities spontaneously. Sensation intact bilaterally. CN II- XII intact. No focal neuro deficits. Ambulatory with steady gait. Course Reevaluation(s) Reevaluation #1: CBC and CMP are overall unremarkable, chronic leukopenia. Viral panel is negative. Quantitative hCG is detectable at 5, patient is adamant that she denies any possibility of , reporting that she has not been sexually active in 14 years. Of note I did review her medical record and in May of 2022 she similarly had a quantitative hCG detectable at 3 with a repeat also at 3 and not noted to be after pelvic ultrasound was obtained. I discussed this case with ED attending, Dr. Hicks, will move forward with head CT. Time: 09:03 Reevaluation #2: CT head without acute intracranial abnormality. Improving in headache with Fioricet. At this time stable for discharge home, headache likely secondary to concussive syndrome with recent head injury. Outpatient follow-up with primary care provider. All questions answered. Medications Administered Discontinued Medications Generic Name Dose Route Start Last Admin Trade Name Freq PRN Reason Stop Dose Admin Acetaminophen/Butalbital/Caffeine 1 tab 02/08/24 07:47 02/08/24 07:55 Butalb/Acetamin/Caff 50/325/40 Tablet PO 02/08/24 07:48 1 tab ONCE ONE Administration Medical Decision Making Medical Decision Making [facility] Narrative: Patient is a 48-year-old female with past medical history of GERD, depression, anxiety who presents to the emergency department for evaluation of an intractable left occipital headache. Overall she is well-appearing, nontoxic, afebrile, speaking clear full sentences, ambulatory with a steady gait and no focal neurological deficits. Given the reported intractability of her headache despite the use of OTC medications will obtain CT of the head to exclude acute intracranial pathology. Will trial Fioricet for headache management. Differential diagnosis with presentation includes SDH, SAH, ICH, MUSIC EDUCATOR mass, meningitis, encephalitis, CVA, GCA, migraine, headache. History without concerning exposures, not exacerbated or worsened by exertion, no red flag symptoms, vision changes, under the age of 50, no new no compromising conditions, no focal neurological abnormalities. Differential Diagnosis Differential Diagnoses: The differential diagnosis associated with the presentation includes (SDH, SAH, ICH, MUSIC EDUCATOR mass, meningitis, encephalitis, CVA, GCA, migraine, headache) Admission/Observation Consideration of admission/observation: Escalation of care including admission/observation considered (See narrative above and course narrative for further detail) Lab Data MDM Lab Attestation statement: I reviewed the patient's lab results. (See course narrative for further detail) 02/08/24 07:55 02/08/24 07:55 Labs: Lab Results 02/08/24 Range/Units 07:55 WBC 4.4 L (4.8-10.8) X10*3/uL RBC 4.64 (4.20-5.50) X10*6/uL Hgb 13.6 (12.0-16.0) g/dl Hct 40.6 (37.0-47.0) % MCV 87.5 (80.0-98.0) fL MCH 29.3 (27.0-33.0) pg MCHC 33.5 (31.0-35.0) g/dl RDW 12.6 (11.0-16.0) % Plt Count 221 (160-400) X10*3/uL MPV 9.3 L (9.4-12.3) fL Immature Gran % (Auto) 0.0 (0.0-0.4) % Neut % (Auto) 45.9 (45-73) % Lymph % (Auto) 44.0 H (20-40) % Hart % (Auto) 7.1 (2-11) % Eos % (Auto) 1.6 (0-4) % Baso % (Auto) 1.4 (0-2) % Lymph # (Auto) 1.9 (1.2-4.9) X10*3/uL Hart # (Auto) 0.3 (0.1-1.2) X10*3/uL Eos # (Auto) 0.1 (0.0-0.4) X10*3/uL Baso # (Auto) 0.1 (0.0-0.2) X10*3/uL Abs Immat Gran (auto) 0.00 (0.00-0.03) X10*3/uL Absolute Neuts (auto) 2.0 (2.0-8.3) x10*3/uL Absolute Nucleated RBC 0.000 (0.0-0.012) X10*3/uL Nucleated RBC % (auto) 0.0 (0.0-0.2) /100WBC Sodium 141 (135-145) mmol/L Potassium 3.6 (3.3-5.1) mmol/L Chloride 103 (96-108) mmol/L Carbon Dioxide 29 (22-29) mmol/L Anion Gap 13 (12-20) BUN 7 L (9-16) mg/dL Creatinine 0.87 (0.5-1.4) mg/dL Estim Creat Clear Calc 68.1 Estimated GFR > 60 Random Glucose 93 (60-115) mg/dL Calcium 10.3 H D (8.4-10.2) mg/dL Total Bilirubin 0.7 (0.0-1.0) mg/dL AST 19 (5-31) U/L ALT 12 (0-31) U/L Alkaline Phosphatase 62 (39-117) U/L Total Protein 7.1 (6.5-8.0) g/dL Albumin 4.3 (3.5-5.0) g/dL Beta HCG, Quant 5 mIU/mL Influenza Type A (PCR) NEGATIVE (Negative) Influenza Type B (PCR) NEGATIVE (Negative) RSV RNA Qual (PCR) NEGATIVE (Negative) SARS-CoV-2 RNA (RT-PCR) NEGATIVE (Negative) Independent Interpretation I performed an independent interpretation of an: CT Scan (No ICH, no fracture) Radiology Impression Discussion of test interpretation with radiology: I have reviewed the radiologist's reading. Radiologist Impression: CT/CT head/brain wo IV con IMPRESSION: No acute intracranial pathology. External Record Review External record reviewed: Outpatient record Prescription Management I considered prescription management with: Pain Medication (Acetaminophen/ibuprofen) Critical Care Time Critical Care Time Critical Care Time: Yes Total Critical Care Time: 40 Attestation: I personally attest to this critical care time spent taking care of the patient exclusive of all other billable procedures was approximately 40 minutes including initial evaluation of patient, ordering tests, CT interpretation, medical consultation, documentation, re-evaluation. Discharge Plan Discharge Clinical Impression: Concussion without loss of consciousness Patient Disposition: Home, Self-Care Instructions: Concussion (ED) Additional Instructions: The CT scan of your head did not show any abnormality which is very reassuring. It is common to experience headaches after this type of injury this is due to a concussion. You can take ibuprofen 200 mg, 3 tablets (600mg) every 6-8 hours as needed for pain, in addition to Tylenol 500 mg, 2 tablets (1,000mg) every 4-6 hours as needed for pain, but not to exceed 3 doses daily (3,000mg). Follow-up with your primary care provider. ? Prescriptions: No Action famotidine [Pepcid] 20 mg tablet 20 mg PO BEDTIME Qty: 30 11RF esomeprazole magnesium [Nexium] 40 mg capsule,delayed release(DR/EC) 40 mg PO DAILY Qty: 30 5RF polyethylene glycol 3350 [Miralax] 17 gram/dose powder 17 g PO DAILY Qty: 510 2RF docusate sodium 100 mg capsule 100 mg PO BEDTIME Qty: 90 3RF simethicone [Gas Relief (simethicone)] 125 mg tablet,chewable 125 mg PO BID-TID PRN (Reason: abdominal distention) Qty: 90 3RF ibuprofen 600 mg tablet 600 mg PO Q6H PRN (Reason: pain) Qty: 20 0RF fluoxetine [Prozac] 20 mg capsule 20 mg PO BID Rx Instructions: administer in the morning and at noon/midday cyclobenzaprine 5 mg tablet 5 mg PO BEDTIME PRN (Reason: muscle spasm) Qty: 7 0RF Linzess 290 mcg capsule 290 mcg PO QAM Qty: 30 4RF Referrals: Name,MD Geoff [Primary Care Provider] - Interventions: ED Discharge Assessment Last Done: 02/08/24 11:01 Discharge Date/Time: 02/08/24 11:02
[2024-02-08] MEDS: Butalb/Acetamin/Caff 50/325/40 TABLET 1 TAB PO (07:55)
[2024-02-08 07:59] LABS: MANUAL DIFF FLAG NO
[2024-02-08 08:03] LABS: Basophils Absolute Auto 0.1 X10*3/uL (0.0-0.2); Basophils Percent Auto 1.4 % (0-2); Eosinophils Absolute Auto 0.1 X10*3/uL (0.0-0.4); Eosinophils Percent Auto 1.6 % (0-4); Hematocrit 40.6 % (37.0-47.0); Hemoglobin 13.6 g/dl (12.0-16.0); Lymphocytes Absolute Auto 1.9 X10*3/uL (1.2-4.9); Mean Corpuscular HGB Conc 33.5 g/dl (31.0-35.0); Mean Corpuscular Hemoglobin 29.3 pg (27.0-33.0); Mean Corpuscular Volume 87.5 fL (80.0-98.0); Mean Platelet Volume 9.3 fL (9.4-12.3); Monocytes Absolute Auto 0.3 X10*3/uL (0.1-1.2); Monocytes Percent Auto 7.1 % (2-11); Neutrophils Percent Auto 45.9 % (45-73); Platelet Count 221 X10*3/uL (160-400); Red Blood Count 4.64 X10*6/uL (4.20-5.50); Red Cell Distribution Width 12.6 % (11.0-16.0); White Blood Count 4.4 X10*3/uL (4.8-10.8)
[2024-02-08 08:35] LABS: Alanine Aminotransferase 12 U/L (0-31); Albumin Level 4.3 g/dL (3.5-5.0); Alkaline Phosphatase 62 U/L (39-117); Anion Gap 13 (12-20); Aspartate Amino Transferase 19 U/L (5-31); Bilirubin Total 0.7 mg/dL (0.0-1.0); Blood Urea Nitrogen 7 mg/dL (9-16); Calcium 10.3 mg/dL (8.4-10.2); Carbon Dioxide 29 mmol/L (22-29); Chloride 103 mmol/L (96-108); Creatinine Clr Calc Pharmacy 68.1; Estimated Glomerular Filt Rate > 60; Glucose Random 93 mg/dL (60-115); HCG Quantitative 5 mIU/mL; Potassium 3.6 mmol/L (3.3-5.1); Sodium 141 mmol/L (135-145); Total Protein 7.1 g/dL (6.5-8.0)
[2024-02-08 08:43] LABS: Influenza A PCR NEGATIVE (Negative); Influenza B PCR NEGATIVE (Negative); Resp Syncy Virus RNA Qual PCR NEGATIVE (Negative); SARS COV2 PCR INHOUSE NEGATIVE (Negative)
== END 2024-02-08 11:02 | disposition home or self-care (01) ==
PROVIDERS: Nurse Practitioner Family; Emergency Provider Student in an Organized Health Care Education/Training Program; PCP Internal Medicine Geriatric Medicine
DX: S06.0X0A Concussion without loss of consciousness, initial encounter (principal); X58.XXXA Exposure to other specified factors, initial encounter; Y93.9 Activity, unspecified; Y92.9 Unspecified place or not applicable; Y99.9 Unspecified external cause status; Z11.52 Encounter for screening for COVID-19; Z20.828 Contact with and (suspected) exposure to other viral communicable diseases
CPT/HCPCS: 0241U; 36415; 70450; 80053; 84702; 85025; 99284

== ENCOUNTER 2024-06-19 08:41 | Outpatient (AMB) | payer MEDICAID, SELFPAY ==
--- NOTE | 2024-06-19 08:42 | MHC.OFFVIS ---
Vital Signs 06/19/24 08:49 Height 5 ft 7 in Weight 108 lb 14.534 oz BMI 17.1 BP 94/58 L Blood Pressure Location Rt brachial Position Sitting Pulse 72 Pulse Source Pulse Oximeter Pulse Oximetry (%) 100 Oxygen Delivery Method Room Air Intake Visit Reasons: Follow up 6 months Intake Note: Lizzy presents in office today for a scheduled 6 mos FUV CC; Pt reports that they are doing very well and their sx are well controlled with their current regimen. Pt does report that they would like to inquire if they could get an increased dose of simethicone. Pt states that they feel as if they are already building up a tolerance to the medication and that it does not seem as effective as it was initially. Intellectual Property Lawyer Required: Yes Intellectual Property Lawyer Services: Intellectual Property Lawyer Offered & Declined Allergies No Known Allergies Allergy (Verified 06/19/24 08:43) HPI HPI Follow up 6 months: Details: LAST VISIT GERD (gastroesophageal reflux disease) Postprandial abdominal bloating IBS (irritable bowel syndrome) Chronic idiopathic constipation Plan Continue Linzess. Patient was also encouraged to increase fluid intake and activity to promote better bowel motility. Continue Nexium and famotidine. Discussed with patient avoiding dietary triggers and late night snacking. Staying upright for minimum 3 hours after meals discussed with patient. I will see her in 6 months, sooner on as needed basis. Patient is agreeable to this plan and verbalizes understanding of instructions. She was given the opportunity to ask questions and all questions answered. ? Thank you for allowing me to participate in her care Medications Refilled linaclotide (Linzess) 290 mcg PO QAM 30 caps 4RF K59.00 TODAY'S VISIT Patient is here today for follow-up. Patient reports that she is taking Linzess every day and she is able to move her bowels. Simethicone helps, however she feels like she is still getting little bloated. Patient lost flow over 10 lb in the last 4 months. Patient states that she is eating much better and is exercising. Patient goes for walks every day. Patient states that overall she feels good. Denies any nausea or vomiting. Denies any abdominal pain or discomfort. Patient changed her diet, only eats chicken and fish and vegetables. Patient is avoiding food high in fat, fried, spicy. Patient had not had colonoscopy yet. [facility] Medical History GERD (gastroesophageal reflux disease) Depression Anxiety Surgical History History of excision of pilonidal cyst History of esophagogastroduodenoscopy (EGD) Hx of tonsillectomy Family History Father No problems noted. Mother No problems noted. Social History Household Members: None Household Members Other:: alone Alcohol intake: current Alcohol intake frequency: does not drink Current occupational status: disabled Review of Systems Const Denies weight gain and Denies weight loss ENT Reports no additional complaints, Denies dysphagia and Denies odynophagia Card Reports no additional complaints Resp Reports no additional complaints GI Denies abdominal pain, Denies belching, Denies melena, Denies bloating, Denies change in bowel habits, Denies dysphagia, Denies excessive flatus, Denies dyspepsia, Denies heartburn, Denies diarrhea, Denies loose stools, Denies nausea, Denies odynophagia and Denies vomiting Musc Reports no additional complaints Neuro Reports no additional complaints Psych Reports no additional complaints Endo Reports no additional complaints Physical Exam Vital Signs: Last Vital Signs Pulse 72 06/19/24 08:49 BP 94/58 L 06/19/24 08:49 Pulse Ox 100 06/19/24 08:49 Oxygen Delivery Method Room Air 06/19/24 08:49 BMI result Body Mass Index 17.1 Const General: healthy appearing, no acute distress and well developed Nutritional Appearance: well nourished Orientation/consciousness: patient oriented x3 Resp Effort & Inspection: normal respiratory effort, able to speak in complete sentences, no tracheal deviation and symmetric chest movement Auscultation: clear to auscultation bilaterally Cardio Rate: regular rate GI Inspection: Yes normal to inspection and No distended Palpation (GI): Soft to palpation, not firm, nontender and No hepatosplenomegaly present Auscultation: normal bowel sounds General: Yes no CVA tenderness Back/Spine/Pelvis Back: no CVA tenderness Skin General skin exam: elasticity normal, turgor normal and dry skin Neuro General: patient oriented x3 Psych Appearance: grossly normal Mental Status: mental status grossly normal Assessment & Plan Assessment & Plan (1) GERD (gastroesophageal reflux disease): Code(s): K21.9 - Gastro-esophageal reflux disease without esophagitis Qualifiers: Esophagitis presence: esophagitis presence not specified Qualified Code(s): K21.9 - Gastro-esophageal reflux disease without esophagitis (2) Postprandial abdominal bloating: Code(s): R14.0 - Abdominal distension (gaseous) (3) IBS (irritable bowel syndrome): Code(s): K58.9 - Irritable bowel syndrome without diarrhea Qualifiers: Irritable bowel syndrome type: with constipation Qualified Code(s): K58.1 - Irritable bowel syndrome with constipation (4) Chronic idiopathic constipation: Code(s): K59.04 - Chronic idiopathic constipation (5) Screen for colon cancer: Code(s): Z12.11 - Encounter for screening for malignant neoplasm of colon Plan Continue current regimen Nexium and Pepcid. Continue avoiding dietary triggers and late night snacking. Patient will continue taking Linzess to help her move her bowels better. Simethicone on as needed basis. Patient will return in 3 months to discuss going for colonoscopy. She is agreeable to this plan and verbalizes understanding of instructions. She was given the opportunity to ask questions and all questions answered. Thank you for allowing me to participate in her care Medications: New simethicone (Gas Relief (simethicone)) 180 mg PO BID PRN 60 caps 4RF abdominal distention Refilled linaclotide (Linzess) 290 mcg PO QAM 30 caps 4RF K59.00 - Constipation, unspecified esomeprazole magnesium (Nexium) 40 mg PO DAILY 30 caps 5RF K21.9 - Gastro-esophageal reflux disease without esophagitis famotidine (Pepcid) 20 mg PO BEDTIME 30 tabs 11RF K21.9 - Gastro-esophageal reflux disease without esophagitis Discontinued simethicone (Gas Relief (simethicone)) Discontinued Reason: Doctor's Order 125 mg PO BID-TID PRN 90 tabs 3RF abdominal distention Coding Level of Care Code Est Pt Level 3 (43758) Diagnoses Gastroesophageal reflux disease, unspecified whether esophagitis present K21.9 Esophagitis presence: esophagitis presence not specified Postprandial abdominal bloating R14.0 Irritable bowel syndrome with constipation K58.1 Irritable bowel syndrome type: with constipation Chronic idiopathic constipation K59.04 Screen for colon cancer Z12.11 Time Spent (min) 30 Comment 20 minutes spent with patient and additional 10 minutes spent reviewing her records
[2024-06-19 08:49] VITALS: BP 94/58; PULSE 72; O2SAT 100; BMI 17.1
== END 2024-06-19 09:52 | disposition home or self-care (01) ==
LOC: HO.HGI 08:41
PROVIDERS: PCP Internal Medicine Geriatric Medicine; Visit Provider Nurse Practitioner Family
DX: K21.9 Gastro-esophageal reflux disease without esophagitis (principal); R14.0 Abdominal distension (gaseous); K58.1 Irritable bowel syndrome with constipation; K59.04 Chronic idiopathic constipation; Z12.11 Encounter for screening for malignant neoplasm of colon
CPT/HCPCS: 99213

== ENCOUNTER → 2024-06-19 08:41 | Outpatient (BNVA) | payer MEDICAID, SELFPAY | PROVIDERS: PCP Internal Medicine Geriatric Medicine; Visit Provider Nurse Practitioner Family | DX: K21.9 Gastro-esophageal reflux disease without esophagitis (principal); K58.1 Irritable bowel syndrome with constipation; K59.04 Chronic idiopathic constipation; R14.0 Abdominal distension (gaseous); Z79.899 Other long term (current) drug therapy | CPT/HCPCS: 99212 ==

== ENCOUNTER 2024-07-21 13:13 | Outpatient (REF) | payer MEDICAID, SELFPAY ==
--- NOTE | ~2024-07-21 | XR_ITS ---
EXAMINATION: XR SHOULDER, RIGHT CLINICAL INFORMATION: Right shoulder pain and weakness, no known injury COMPARISON: None available. TECHNIQUE: AP external rotation, Grashey, scapular Y, and axillary views of the right shoulder. FINDINGS: The bones and soft tissues are normal. No fracture. Glenohumeral and acromioclavicular alignment is anatomic with normal joint space. No abnormal soft tissue calcifications. XR/XR shoulder RT min 2V IMPRESSION: Unremarkable right shoulder. Electronically signed by: Michelle Mccormick MD 08/04/2024 04:57 PM EDT
--- NOTE | ~2024-07-21 | XR_ITS ---
EXAMINATION: XR CERVICAL SPINE CLINICAL INFORMATION: Neck pain. COMPARISON: None available. TECHNIQUE: 3 views of the cervical spine were obtained. FINDINGS: There are no prevertebral soft tissue or bony abnormalities demonstrated. No compression fractures or subluxations are identified. Alignment is maintained at the atlanto-axial articulation. The disc spaces are preserved. No endplate changes are seen. The prevertebral soft tissues are normal. The foramina are patent. XR/XR cervical spine 3V IMPRESSION: Unremarkable examination. Electronically signed by: Aubrey Lee MD 08/05/2024 08:39 AM EDT
--- NOTE | ~2024-07-21 | XR_ITS ---
EXAMINATION: XR SHOULDER, LEFT CLINICAL INFORMATION: Atraumatic pain and weakness COMPARISON: None available. TECHNIQUE: AP external rotation, Grashey, scapular Y, and axillary views of the left shoulder. FINDINGS: No fracture or dislocation. Alignment is maintained. Mild thoracic levoscoliosis. Visualized lung and ribs are unremarkable. XR/XR shoulder LT min 2V IMPRESSION: No acute bony pathology left shoulder. Electronically signed by: Michelle Mccormick MD 08/04/2024 04:56 PM EDT
== END 2024-07-21 13:14 | disposition home or self-care (01) ==
LOC: HO.XRAY 13:13
PROVIDERS: Absent Provider Internal Medicine Geriatric Medicine; PCP Internal Medicine Geriatric Medicine; Visit Provider Family Medicine
DX: M54.2 Cervicalgia (principal); G89.29 Other chronic pain; M25.511 Pain in right shoulder; M25.512 Pain in left shoulder; R29.898 Other symptoms and signs involving the musculoskeletal system
CPT/HCPCS: 72040; 73030

== ENCOUNTER 2024-08-04 15:06 | Outpatient (REF) | payer MEDICAID, SELFPAY ==
[2024-08-04 16:13] LABS: MANUAL DIFF FLAG NO
[2024-08-04 16:21] LABS: Basophils Absolute Auto 0.1 X10*3/uL (0.0-0.2); Basophils Percent Auto 1.3 % (0-2); Eosinophils Absolute Auto 0.1 X10*3/uL (0.0-0.4); Hemoglobin 13.8 g/dl (12.0-16.0); Lymphocytes Absolute Auto 2.3 X10*3/uL (1.2-4.9); Lymphocytes Percent Auto 51.3 % (20-40); Mean Corpuscular HGB Conc 32.9 g/dl (31.0-35.0); Mean Corpuscular Hemoglobin 29.1 pg (27.0-33.0); Mean Corpuscular Volume 88.6 fL (80.0-98.0); Mean Platelet Volume 10.1 fL (9.4-12.3); Monocytes Absolute Auto 0.2 X10*3/uL (0.1-1.2); Monocytes Percent Auto 4.9 % (2-11); Neutrophils Absolute Auto 1.8 x10*3/uL (2.0-8.3); Neutrophils Percent Auto 40.5 % (45-73); Platelet Count 287 X10*3/uL (160-400); Red Blood Count 4.74 X10*6/uL (4.20-5.50); White Blood Count 4.5 X10*3/uL (4.8-10.8)
[2024-08-04 16:42] LABS: Anion Gap 13 (12-20); Blood Urea Nitrogen 13 mg/dL (9-16); C Reactive Protein < 0.04 mg/dL (< or = 0.50); Calcium 10.2 mg/dL (8.4-10.2); Carbon Dioxide 23 mmol/L (22-29); Chloride 107 mmol/L (96-108); Estimated Glomerular Filt Rate > 60; Glucose Random 85 mg/dL (60-115); Sodium 139 mmol/L (135-145)
[2024-08-04 16:49] LABS: Rheumatoid Factor < 13.0 IU/mL (<15.0)
[2024-08-07 13:57] LABS: Anti Nuclear Antibody Screen NEGATIVE (NEGATIVE)
== END 2024-08-04 15:07 | disposition home or self-care (01) ==
LOC: HO.HHCL 15:06
PROVIDERS: Visit Provider Internal Medicine Geriatric Medicine
DX: G43.109 Migraine with aura, not intractable, without status migrainosus (principal); L72.9 Follicular cyst of the skin and subcutaneous tissue, unspecified; M25.50 Pain in unspecified joint
CPT/HCPCS: 36415; 80048; 85025; 86038; 86140; 86431

== ENCOUNTER 2024-08-20 10:22 | Outpatient (AMB) | payer MEDICAID, SELFPAY ==
[2024-08-20 10:23] VITALS: BMI 17.7
--- NOTE | 2024-08-20 10:23 | MHC.OFFVIS ---
Vital Signs 08/20/24 10:23 Height 5 ft 7 in Weight 112 lb 14.027 oz BMI 17.7 Intake Visit Reasons: Skin cyst Intake Note: This patient presents for Skin cyst. Pt c/o; reports x2 skin cyst, right neck, right hand. Patient Assistant Required: Yes Patient Assistant Language: Medical Office Coordinator Name: Cinthya Information Interpreted: non-clinical & clinical Accompanied by: Self / Same As Patient Allergies No Known Allergies Allergy (Verified 08/20/24 10:30) Medication List - Last Reconciled 08/20/24 by Shakeel Telles MD cyclobenzaprine 5 mg PO BEDTIME PRN docusate sodium 100 mg PO BEDTIME esomeprazole magnesium (Nexium) 40 mg PO DAILY famotidine (Pepcid) 20 mg PO BEDTIME fluoxetine (Prozac) 20 mg PO BID ibuprofen 600 mg PO Q6H PRN linaclotide (Linzess) 290 mcg PO QAM polyethylene glycol 3350 (Miralax) 17 grams PO DAILY simethicone (Gas Relief (simethicone)) 180 mg PO BID PRN HPI HPI Skin cyst: Details: [age] year old female referred for a skin cyst as well as a subcutaneous mass on the 3rd finger on the right. She wants both of these masses removed. She has had them for several months. She says that these have been bothering her. [facility] Medical History Mass of finger of right hand Epidermal cyst of neck GERD (gastroesophageal reflux disease) Depression Anxiety Surgical History History of excision of pilonidal cyst History of esophagogastroduodenoscopy (EGD) Hx of tonsillectomy Family History Father No problems noted. Mother No problems noted. Social History Household Members: None Household Members Other:: alone Alcohol intake: current Alcohol intake frequency: does not drink Current occupational status: disabled Review of Systems Const Denies chills and Denies fever(s) Card Denies chest pain, Denies dyspnea and Denies dyspnea on exertion Resp Denies cough, Denies dyspnea and Denies dyspnea on exertion GI Denies hematochezia and Denies change in bowel habits Denies hematuria Musc Denies back pain and Denies limited range of motion Neuro Denies focal weakness and Denies convulsions Psych Denies depression and Denies mood swings Physical Exam Const General: comfortable and no acute distress Orientation/consciousness: patient oriented x3 Neck Other: Small cystic induration on the right neck, about 3-4 mm in diameter Neck: Yes no lymphadenopathy Resp Auscultation: clear to auscultation bilaterally Cardio Rhythm: regular rhythm GI Palpation (GI): Soft to palpation, nontender and no guarding Neuro General: patient oriented x3 Extrem Other: Subcutaneous mass subcutaneous mass on the 3rd finger on the right side, well-defined, mobile, about 1 cm in diameter Assessment & Plan Assessment & Plan (1) Epidermal cyst of neck: Code(s): L72.0 - Epidermal cyst Category: Medical Plan: This will be done along with excision of the subcutaneous mass on the 3rd finger on the right under local anesthesia in the office. She understands the risks, benefits, and alternatives. (2) Mass of finger of right hand: Code(s): R22.31 - Localized swelling, mass and lump, right upper limb Category: Medical Plan I explained to the technique of excision of the cystic mass on the right neck as well as the subcutaneous nodule on the finger on the right. This will be done under local anesthesia. I reviewed the risks including but not limited to bleeding and infections, tendon injury, as well as the benefits and alternatives. She says she understands and wants to proceed. This will be done on her next visit in the office. Coding Level of Care Code New Pt Level 3 (10217) Diagnoses Epidermal cyst of neck L72.0 Mass of finger of right hand R22.31
== END 2024-08-20 10:38 | disposition home or self-care (01) ==
PROVIDERS: PCP Internal Medicine Geriatric Medicine; Referring Provider Internal Medicine Geriatric Medicine; Visit Provider Surgery
DX: L72.0 Epidermal cyst (principal); R22.31 Localized swelling, mass and lump, right upper limb
CPT/HCPCS: 99203

== ENCOUNTER → 2024-08-20 10:22 | Outpatient (BNVA) | payer MEDICAID, SELFPAY | PROVIDERS: PCP Internal Medicine Geriatric Medicine; Visit Provider Surgery | DX: L72.0 Epidermal cyst (principal); R22.31 Localized swelling, mass and lump, right upper limb | CPT/HCPCS: 99202 ==

== ENCOUNTER 2024-09-04 12:44 | Outpatient (REF) | payer MEDICAID, SELFPAY ==
--- NOTE | 2024-09-04 12:48 | EMG_ITS ---
Chief complaint: Bilateral hand numbness Reason for referral: Evaluate for Carpal Tunnel Syndrome Referred by: Dr. Lawton Procedure done: Bilateral upper extremities NCS/EMG Precautions and/or limitations: None Wolof speaking, seen with work order detailer. The limb temperature was monitored continuously and remained between 32-36 degrees C during the performance of the NCS. Nerve Conduction Studies Anti Sensory Summary Table ?Stim Site NR Onset (ms) Norm Onset (ms) Peak (ms) Norm Peak (ms) O-P Amp (?V) Norm O-P Amp Site1 Site2 Delta-0 (ms) Dist (cm) Coy (m/s) Norm Coy (m/s) Left Median Anti Sensory (2nd Digit) Wrist ? 2.6 3.3 <3.6 21.7 >10 Wrist 2nd Digit 2.6 14.0 54 Right Median Anti Sensory (2nd Digit) Wrist ? 2.7 3.6 <3.6 21.2 >10 Wrist 2nd Digit 2.7 14.0 52 Left Ulnar Anti Sensory (5th Digit) Wrist ? 2.4 3.2 <3.7 41.1 >15.0 Wrist 5th Digit 2.4 14.0 58 Right Ulnar Anti Sensory (5th Digit) Wrist ? 2.4 3.2 <3.7 43.9 >15.0 Wrist 5th Digit 2.4 14.0 58 Motor Summary Table ?Stim Site NR Onset (ms) Norm Onset (ms) O-P Amp (mV) Norm O-P Amp iAmp (mV) Amp (1st) (%) Site1 Site2 Delta-0 (ms) Dist (cm) Coy (m/s) Norm Coy (m/s) Left Median Motor (Abd Poll Brev) Wrist ? 3.6 <3.9 9.3 >4.5 11.5 100.0 Elbow Wrist 3.5 20.0 57 >45 Elbow ? 7.1 9.6 12.5 103.2 Right Median Motor (Abd Poll Brev) Wrist ? 3.8 <3.9 8.1 >4.5 9.8 100.0 Elbow Wrist 4.1 22.5 55 >45 Elbow ? 7.9 8.6 10.6 106.2 Left Ulnar Motor (Abd Dig Minimi) Wrist ? 3.0 <3.0 7.4 >5 8.4 100.0 B Elbow Wrist 3.5 18.5 53 >45 B Elbow ? 6.5 7.0 8.0 94.6 A Elbow B Elbow 1.8 10.0 56 >45 A Elbow ? 8.3 7.0 8.1 94.6 Right Ulnar Motor (Abd Dig Minimi) Wrist ? 2.8 <3.0 7.8 >5 9.6 100.0 B Elbow Wrist 3.7 19.0 51 >45 B Elbow ? 6.5 7.0 8.9 89.7 A Elbow B Elbow 1.6 10.0 63 >45 A Elbow ? 8.1 6.6 8.6 84.6 Comparison Summary Table ?Stim Site NR Peak (ms) Norm Peak (ms) P-T Amp (?V) Site1 Site2 Delta-P (ms) Norm Delta (ms) Right Median/Radial Dig I Comparison (Digit 1 - 10cm) Median ? 3.3 <2.9 46.8 Median Radial 0.1 Radial ? 3.4 <2.8 61.8 EMG ?Side Muscle Nerve Root Ins Act Fibs Psw Amp Dur Poly Recrt Int Pat Comment Right 1stDorInt Ulnar C8-T1 Nml Nml Nml Nml Nml 0 Nml Complete Right FlexCarRad Median C6-7 Nml Nml Nml Nml Nml 0 Nml Complete Right Biceps Musculocut C5-6 Nml Nml Nml Nml Nml 0 Nml Complete Right Triceps Radial C6-7-8 Nml Nml Nml Nml Nml 0 Nml Complete Right Deltoid Axillary C5-6 Nml Nml Nml Nml Nml 0 Nml Complete Left 1stDorInt Ulnar C8-T1 Nml Nml Nml Nml Nml 0 Nml Complete Left FlexCarRad Median C6-7 Nml Nml Nml Nml Nml 0 Nml Complete Left Biceps Musculocut C5-6 Nml Nml Nml Nml Nml 0 Nml Complete Left Triceps Radial C6-7-8 Nml Nml Nml Nml Nml 0 Nml Complete Left Deltoid Axillary C5-6 Nml Nml Nml Nml Nml 0 Nml Complete FINDINGS: All motor and sensory nerves tested showed normal latencies, amplitudes and conduction velocities. Concentric needle EMG was performed in selected muscles of the bilateral upper extremities. Study did not reveal signs of electric abnormalities as shown in the table above. IMPRESSION: 1. This is a normal study. 2. There is no electrodiagnostic evidence for median neuropathy, ulnar neuropathy, brachial plexopathy, or cervical radiculopathy. Thank you for your kind referral. Yadi Rowell MD, JANE Board Certified, [place] Board [employer] and Rehabilitation (ABPMR) Board Certified, [place] Board of Electrodiagnostic Medicine (ABEM) CODIN [phone] MTDD
== END 2024-09-04 12:45 | disposition home or self-care (01) ==
LOC: HO.NEURO 12:44
PROVIDERS: PCP Internal Medicine Geriatric Medicine; Visit Provider Family Medicine
DX: M54.2 Cervicalgia (principal); R29.898 Other symptoms and signs involving the musculoskeletal system
CPT/HCPCS: 95886; 95911

== ENCOUNTER → 2024-09-04 12:48 | Outpatient (BNV) | payer MEDICAID, SELFPAY | PROVIDERS: PCP Internal Medicine Geriatric Medicine; Visit Provider Physical Medicine & Rehabilitation | DX: R20.0 Anesthesia of skin (principal) | CPT/HCPCS: 95886; 95911 ==

== ENCOUNTER 2024-09-09 13:59 | Outpatient (REF) | payer MEDICAID, SELFPAY | END 2024-09-09 14:00 | disposition home or self-care (01) | LOC: HO.LNP 13:59 | PROVIDERS: PCP Internal Medicine Geriatric Medicine; Visit Provider Surgery | DX: R22.31 Localized swelling, mass and lump, right upper limb (principal); L72.0 Epidermal cyst | CPT/HCPCS: 11401; 11420; 88304; 88305 ==

== ENCOUNTER 2024-09-09 13:59 | Outpatient (AMB) | payer MEDICAID, SELFPAY ==
--- NOTE | 2024-09-09 14:24 | A.OFFVIS_ITS ---
Intake Visit Reasons: excision cyst from neck, nodule 3rd Finger Rt Intake Note: Office procedure: excision cyst from neck, nodule 3rd Finger Rt Process Engineering Technician Required: Yes Process Engineering Technician Language: Aviation Program Manager Services: Process Engineering Technician Present Process Engineering Technician Name: Cinthya Information Interpreted: non-clinical & clinical Accompanied by: Other Relationship Allergies No Known Allergies Allergy (Verified 09/09/24 14:25) HPI HPI excision cyst from neck, nodule 3rd Finger Rt: Details: She is here for excision of a cyst from the neck and a subcutaneous mass on the 3rd finger on the right. [facility] Medical History Mass of finger of right hand Epidermal cyst of neck GERD (gastroesophageal reflux disease) Depression Anxiety Surgical History History of removal of cyst History of excision of pilonidal cyst History of esophagogastroduodenoscopy (EGD) Hx of tonsillectomy Family History Father No problems noted. Mother No problems noted. Social History Household Members: None Household Members Other:: alone Alcohol intake: current Alcohol intake frequency: does not drink Current occupational status: disabled Office Procedures Excision Details: She was in reclining position. The area of the cystic mass on the anterior neck was prepped and draped. Lidocaine 1% was used for local anesthesia. I made an elliptical incision on the skin surrounding this cyst using blade 15. This carried down through the full-thickness of the skin and subcutaneous fat to excise this entire indurated area. This was sent as a specimen. The incision was closed with full-thickness nylon 3-0 simple interrupted sutures. The cyst measured about 5 mm in diameter. 43708-[id number] scalp/neck/feet/hands/genitalia <.05cm Details: The area of the subcutaneous mass on the 3rd finger was prepped and draped. Lidocaine 1% was used for local anesthesia. I made an incision on the skin overlying the mass with a blade 15.. This was carried down through the full- thickness of the skin and subcutaneous fat. A soft subcutaneous mass was visualized. I sharply dissected this off of the rest of the subcutaneous layer. This was sent as a specimen. This mass appeared to be a lipoma and measured about 1 cm in diameter. I closed the incision with full-thickness nylon 3-0 simple interrupted sutures. Dressings were applied. The procedure was completed. She tolerated procedure well. There was minimal blood loss for both procedures. 17136-krzio/arms/legs 0.6-1cm Procedure code (CPT) selection complete Assessment & Plan Assessment & Plan (1) Mass of finger of right hand: Code(s): R22.31 - Localized swelling, mass and lump, right upper limb Category: Medical Plan: Excision was done under local anesthesia. She was given wound care instructions (2) Epidermal cyst of neck: Code(s): L72.0 - Epidermal cyst Category: Medical Plan: Excision was done under local anesthesia. She was given wound care instructions. She will be seen for removal sutures in about 2 weeks. Coding Level of Care Code Procedure Only Diagnoses Mass of finger of right hand R22.31 Epidermal cyst of neck L72.0 CPT Codes Trunk/Arms/Legs - CPT: 76662-ywryh/arms/legs 0.6-1cm ([id number]) Scalp/Neck/Hands/Feet/Genetalia - CPT: 78028-Jqohzxjs scalp/neck/feet/h ands/genitalia <.05cm ([id number])
== END 2024-09-09 14:26 | disposition home or self-care (01) ==
PROVIDERS: PCP Internal Medicine Geriatric Medicine; Referring Provider Internal Medicine Geriatric Medicine; Visit Provider Surgery
DX: L72.0 Epidermal cyst (principal); R22.31 Localized swelling, mass and lump, right upper limb
CPT/HCPCS: 11401; 11420

== ENCOUNTER 2024-09-21 08:43 | Outpatient (AMB) | payer MEDICAID, SELFPAY ==
[2024-09-21 09:01] VITALS: BP 108/76; PULSE 64; O2SAT 100; BMI 17.4
--- NOTE | 2024-09-21 09:01 | A.OFFVIS_ITS ---
Vital Signs 09/21/24 09:01 Height 5 ft 7 in Weight 111 lb 1.808 oz BMI 17.4 BP 108/76 Blood Pressure Location Rt brachial Position Sitting Pulse 64 Pulse Source Pulse Oximeter Pulse Oximetry (%) 100 Oxygen Delivery Method Room Air Intake Visit Reasons: 3 month follow up Intake Note: Relevant Flags or Indicators ? 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 N Lizzy presents in office today for a scheduled 3 mos FUV. CC; Since last visit; labs ordered ? via PCP within the last 6 mos. Rx ordered ? yes; famotidine, esomeprazole, and linzess. Diagnostics/images ordered ? none. Relevant GI Sx as reported per pt? Reflux ? Dysphagia ? Abdominal Pain o?? Lower o?? Right / Left ? Bloating - Pt reports having lack of therapeutic effect with the simethicone. Pt would like to discuss possible alternatives. ? Hx of any recent surgeries? Gen Surg cyst excision. Allergies No Known Allergies Allergy (Verified 09/21/24 09:02) HPI HPI 3 month follow up: Details: LAST VISIT: GERD (gastroesophageal reflux disease) Postprandial abdominal bloating IBS (irritable bowel syndrome) Chronic idiopathic constipation Screen for colon cancer Plan Continue current regimen Nexium and Pepcid. Continue avoiding dietary triggers and late night snacking. Patient will continue taking Linzess to help her move her bowels better. Simethicone on as needed basis. Patient will return in 3 months to discuss going for colonoscopy. She is agreeable to this plan and verbalizes understanding of instructions. She was given the opportunity to ask questions and all questions answered. ? Thank you for allowing me to participate in her care Medications New simethicone (Gas Relief (simethicone)) 180 mg PO BID PRN 60 caps 4RF abdominal distention Refilled linaclotide (Linzess) 290 mcg PO QAM 30 caps 4RF K59.00 esomeprazole magnesium (Nexium) 40 mg PO DAILY 30 caps 5RF K21.9 famotidine (Pepcid) 20 mg PO BEDTIME 30 tabs 11RF K21.9 Discontinued simethicone (Gas Relief (simethicone)) Discontinued Reason: Doctor's Order 125 mg PO BID-TID PRN 90 tabs 3RF abdominal distention TODAY'S VISIT Patient is here today for follow-up. Patient reports that she has been doing okay, however in the past few weeks she has been having increase bloating. Patient was unable to get refills for simethicone and when she received simethicone it was gel capsules and she feels like it is not working as well as the chewable once. Patient also reports increased acid reflux at times, occasional dyspepsia and dysphagia without odynophagia. Patient admits to be under a lot of stress with her housing. Patient denies any melena, hematochezia, unintentional weight loss or ribbon like stools. Patient denies any other GI concerning. [facility] Medical History Mass of finger of right hand Epidermal cyst of neck GERD (gastroesophageal reflux disease) Depression Anxiety Surgical History History of removal of cyst History of excision of pilonidal cyst History of esophagogastroduodenoscopy (EGD) Hx of tonsillectomy Family History Father No problems noted. Mother No problems noted. Social History Household Members: None Household Members Other:: alone Alcohol intake: current Alcohol intake frequency: does not drink Current occupational status: disabled Review of Systems Const Denies weight gain and Denies weight loss ENT Reports no additional complaints, Denies dysphagia and Denies odynophagia Card Reports no additional complaints Resp Reports no additional complaints GI Reports abdominal pain (Occasional), Denies belching, Denies melena, Reports bloating, Denies change in bowel habits, Denies dysphagia, Denies excessive fl atus, Reports dyspepsia, Reports heartburn (Occasional), Denies diarrhea, Denies loose stools, Reports nausea, Denies odynophagia and Denies vomiting Reports no additional complaints Musc Reports no additional complaints Neuro Reports no additional complaints Psych Reports no additional complaints Endo Reports no additional complaints Physical Exam Vital Signs: Last Vital Signs Pulse 64 09/21/24 09:01 BP 108/76 09/21/24 09:01 Pulse Ox 100 09/21/24 09:01 Oxygen Delivery Method Room Air 09/21/24 09:01 BMI result Body Mass Index 17.4 Const General: healthy appearing, no acute distress and well developed Nutritional Appearance: well nourished Orientation/consciousness: patient oriented x3 Resp Effort & Inspection: normal respiratory effort, able to speak in complete sentences, no tracheal deviation and symmetric chest movement Auscultation: clear to auscultation bilaterally Cardio Rate: regular rate GI Inspection: Yes normal to inspection and No distended Palpation (GI): Soft to palpation, not firm, nontender and No hepatosplenomegaly present Auscultation: normal bowel sounds General: Yes no CVA tenderness Back/Spine/Pelvis Back: no CVA tenderness Skin General skin exam: elasticity normal, turgor normal and dry skin Neuro General: patient oriented x3 Psych Appearance: grossly normal Mental Status: mental status grossly normal Assessment & Plan Assessment & Plan (1) GERD (gastroesophageal reflux disease): Code(s): K21.9 - Gastro-esophageal reflux disease without esophagitis Qualifiers: Esophagitis presence: without esophagitis Qualified Code(s): K21.9 - Gastro-esophageal reflux disease without esophagitis (2) Postprandial abdominal bloating: Code(s): R14.0 - Abdominal distension (gaseous) (3) IBS (irritable bowel syndrome): Code(s): K58.9 - Irritable bowel syndrome, unspecified Qualifiers: Irritable bowel syndrome type: with constipation Qualified Code(s): K58.1 - Irritable bowel syndrome with constipation (4) Chronic idiopathic constipation: Code(s): K59.04 - Chronic idiopathic constipation (5) Screen for colon cancer: Code(s): Z12.11 - Encounter for screening for malignant neoplasm of colon Plan Patient will continue Linzess. Increase fluid intake and activity to promote better bowel motility. Discussed with patient low FODMAP diet. List of food recommended as well as list of food to avoid given to patient. Patient will continue Nexium. Avoid dietary triggers and late night snacking. Staying upright for minimum 3 hours after meals discussed with patient. Simethicone chewable tablets sent to pharmacy. Patient will follow-up in the office in 3 months, sooner on as needed she is agreeable to this plan and verbalizes understanding of instructions. She was given the opportunity to ask questions and all questions answered. Thank you for allowing me to participate care Medications: New simethicone (Gas Relief (simethicone)) 125 mg PO BID-TID PRN 90 tabs 4RF abdominal distention Refilled linaclotide (Linzess) 290 mcg PO QAM 30 caps 4RF K59.00 - Constipation, unspecified Discontinued simethicone (Gas Relief (simethicone)) Discontinued Reason: Doctor's Order 180 mg PO BID PRN 60 caps 4RF abdominal distention Coding Level of Care Code Est Pt Level 3 (82991) Diagnoses Gastroesophageal reflux disease without esophagitis K21.9 Esophagitis presence: without esophagitis Postprandial abdominal bloating R14.0 Irritable bowel syndrome with constipation K58.1 Irritable bowel syndrome type: with constipation Chronic idiopathic constipation K59.04 Screen for colon cancer Z12.11 Time Spent (min) 25 Comment 15 minutes spent with patient and additional 10 minutes spent reviewing her records
== END 2024-09-21 09:42 | disposition home or self-care (01) ==
PROVIDERS: PCP Internal Medicine Geriatric Medicine; Visit Provider Nurse Practitioner Family
DX: K21.9 Gastro-esophageal reflux disease without esophagitis (principal); R14.0 Abdominal distension (gaseous); K58.1 Irritable bowel syndrome with constipation; K59.04 Chronic idiopathic constipation; Z12.11 Encounter for screening for malignant neoplasm of colon
CPT/HCPCS: 99213

== ENCOUNTER → 2024-09-21 08:43 | Outpatient (BNVA) | payer MEDICAID, SELFPAY | PROVIDERS: PCP Internal Medicine Geriatric Medicine; Visit Provider Nurse Practitioner Family | DX: K21.9 Gastro-esophageal reflux disease without esophagitis (principal); K59.04 Chronic idiopathic constipation; K58.1 Irritable bowel syndrome with constipation; R14.0 Abdominal distension (gaseous) | CPT/HCPCS: 99212 ==

== ENCOUNTER 2024-09-23 09:11 | Outpatient (AMB) | payer MEDICAID, SELFPAY ==
--- NOTE | 2024-09-23 09:52 | A.OFFVIS_ITS ---
Vital Signs 09/23/24 09:57 Height 5 ft 7 in Weight 111 lb 1.808 oz BMI 17.4 Intake Visit Reasons: s/p excision cyst from neck stitch removal Intake Note: This patient presents for post-op follow-up assessment status post excision cyst finger right hand. Pt c/o; reports no complaints at this time. Ssn/Ssbn Weapons Equipment Operator Required: Yes Ssn/Ssbn Weapons Equipment Operator Language: Pilot Control Operator Helper Services: Ssn/Ssbn Weapons Equipment Operator Present Ssn/Ssbn Weapons Equipment Operator Name: Cinthya Information Interpreted: non-clinical & clinical Accompanied by: Self / Same As Patient Allergies No Known Allergies Allergy (Verified 09/23/24 09:58) HPI HPI s/p excision cyst from neck stitch removal: Details: She underwent excision of a cyst from the anterior neck as well as subcutaneous mass from the 3rd finger in the right side under local anesthesia last September 10. She is doing well and denies significant complaints. [facility] Medical History Mass of finger of right hand Epidermal cyst of neck GERD (gastroesophageal reflux disease) Depression Anxiety Surgical History History of removal of cyst (~09/09/24) History of excision of pilonidal cyst History of esophagogastroduodenoscopy (EGD) Hx of tonsillectomy Family History Father No problems noted. Mother No problems noted. Social History Household Members: None Household Members Other:: alone Alcohol intake: current Alcohol intake frequency: does not drink Current occupational status: disabled Review of Systems Const Denies chills and Denies fever(s) Physical Exam Vital Signs: BMI result Body Mass Index 17.4 Const Other: Looks well General: comfortable and no acute distress Neck Other: Excision site on the anterior neck well healed, sutures intact Extrem Other: Excision site on the finger is well healed, sutures intact Assessment & Plan Assessment & Plan (1) Epidermal cyst of neck: Code(s): L72.0 - Epidermal cyst Category: Medical Plan: Status post excision. I removed all her sutures. The incisions well healed. Her path report shows an epidermal cyst. (2) Mass of finger of right hand: Code(s): R22.31 - Localized swelling, mass and lump, right upper limb Category: Medical Plan: Status post excision. I removed all her sutures. The incision is well healed. Path report shows endothelial hyperplasia and thrombus. I explained to her the benign nature of this pathology. Coding Level of Care Code Global (51898) Diagnoses Epidermal cyst of neck L72.0 Mass of finger of right hand R22.31
[2024-09-23 09:57] VITALS: BMI 17.4
== END 2024-09-23 10:23 | disposition home or self-care (01) ==
PROVIDERS: PCP Internal Medicine Geriatric Medicine; Visit Provider Surgery
DX: L72.0 Epidermal cyst (principal); R22.31 Localized swelling, mass and lump, right upper limb
CPT/HCPCS: 99024

== ENCOUNTER → 2024-09-23 09:11 | Outpatient (BNVA) | payer MEDICAID, SELFPAY | PROVIDERS: PCP Internal Medicine Geriatric Medicine; Visit Provider Surgery | DX: L72.0 Epidermal cyst (principal); R22.31 Localized swelling, mass and lump, right upper limb | CPT/HCPCS: 99212 ==

== ENCOUNTER → 2024-12-23 12:53 | Outpatient (BNVA) | payer MEDICAID, SELFPAY | PROVIDERS: PCP Internal Medicine Geriatric Medicine; Visit Provider Nurse Practitioner Family | DX: K58.1 Irritable bowel syndrome with constipation (principal); K59.04 Chronic idiopathic constipation; K21.9 Gastro-esophageal reflux disease without esophagitis; R10.13 Epigastric pain; R14.0 Abdominal distension (gaseous) | CPT/HCPCS: 99212 ==

== ENCOUNTER 2025-03-30 13:46 | Outpatient (REF) | payer MEDICAID, SELFPAY ==
--- NOTE | ~2025-03-30 | XR_ITS ---
EXAMINATION: XR CHEST CLINICAL INFORMATION: R06.00 - Dyspnea, unspecified COMPARISON: May 14, 2022. TECHNIQUE: 2 views of the chest were obtained. FINDINGS: No consolidation, pleural effusion or pneumothorax. Cardiomediastinal silhouette size is normal. S-shaped curvature of the thoracolumbar spine. XR/XR chest 2V IMPRESSION: No acute airspace disease. Scoliosis, thoracolumbar spine. Electronically signed by: Mayito Bucio MD 03/31/2025 03:20 PM EDT
--- OUTSIDE RECORDS SUMMARY | 2025-03-30 17:19 | XMS_ITS | Clinical Summary ---
Author Organization [employer] Address [address] [facility] 7[address] [place] [address] Care Team Providers Care Clinical Nursing Director Name Role Phone Name, Geoff DONALDSON Primary Care Provider [phone] Allergies No known active allergies Medications traZODone [...] Type Department Care Team Description 03/10/2025 Refill [facility] [address] [place] [address] [phone] Geoff Slaughter MD Chronic pain syndrome 03/03/2025 3:30 PM EDT Office Visit [facility] [address] [place] [address] Geoff Slaughter MD Depression, unspecified depression type (Primary Dx); Schizophrenia, unspecified type (CMS/HCC); Grief; Fibromyalgia; Screening for colon cancer 03/03/2025 Travel 03/01/2025 Orders Only [facility] [address] [place], [place] [phone] Katty Hong 02/12/2025 Population Health Risk Score [facility] [address] [place] [phone] Provider, Population Health Generic 02/08/2025 Orders Only [facility] [address] [place] [address] ProviderBatool MD from Last 3 Months Immunizations Name Administration Dates Next Due Influenza injectable quadriv alent IIV4 with preservative 09/22/2018 Influenza injectable quadriv alent preservative free 01/09/2021,10/20/2019,09/20/2018,2015,07/20/2015 Influenza, Split (incl. jluián fied surface antigen) 09/28/2013 Influenza, seasonal, injecta [...] Description 06/23/2025 2:00 PM EDT Office Visit [facility] [address] [place] [address] Name, MD Geoff [address] [place] [address] Health Maintenance Due Date Last Done Comments [...] EST) Pap Smear 1. NILM 1. NILM [facility] HPV Not Detected Undetected, Indeterminat e, Quantitative , Not Detected [facility] Narrative [facility] - 02/02/2025 12:00 AM EST See care everywhere lab 02/02/2025 us Historical Provider HEALTH MAINTENANCE Edited Result - Final [facility] * Fecal Globin by Immunochemistry (05/08/2023 12:00 AM EDT) Fecal Globin By Immunochemistry SEE NOTE [employer] [place] [facility] Comment: ??FECAL GLOBIN BY IMMUNOCHEMISTRY ?Micro Number: ?[id number] ??Test Status: ? Final ??Specimen Source: ?? Insure (tm) fobt test card ??Specimen Quality: ??Inadequate ??Fecal Globin: ?Test not performed. ? Improper collection of the sample by patient. 05/08/2023 05/19/2023 1:2 7 AM EDT Narrative [facility] - 05/20/2023 10:15 AM EDT FASTING: UNKNOWN Geoff Slaughter MD LAB BODY FLUIDS AND STOOLS ORDER VAZQUEZ Final Result [facility] [address], [place] [address] [facility] [place] [facility] [address] [place] [address] * Hepatitis Panel, General (05/03/2023 2:52 PM EDT) Hepatitis A Antibody Total NON-REACT MINH NON-REACT MINH [facility] [place] [facility] Comment: For additional information, please refer to http://education.[employer]/faq/QRV785 (This link is being provided for informational/ educational purposes only.) Hepatitis B Surface Antibody QL NON-REACT MINH NON-REACT MINH [facility] [place] [facility] Hepatitis B Surface Ag NON-REACT MINH NON-REACT MINH [facility] [place] [facility] Hepatitis B Core Antibody Total NON-REACT MINH NON-REACT MINH [facility] [place] [employer] [employer] Hepatitis C Antibody NON-REACT MINH NON-REACT MINH [facility] [place] [employer] [employer] Index 0.08 <1.00 [facility] [place] [employer] [employer] Comment: HCV antibody was non-reactive. There is no laboratory evidence of HCV infection. In most cases, no further action is required. However, if recent HCV exposure is suspected, a test for HCV RNA (test code 06454) is suggested. For additional information please refer to http://education.[employer] Int/faq/QEG19o8 (This link is being provided for informational/ educational purposes only.) 05/03/2023 2:52 PM EDT 05/03/2023 2:53 PM EDT Narrative [facility] - 05/06/2023 11:14 AM EDT FASTING:NO COLLECTION KIT GIVEN TO PATIENT. PATIENT ADVISED TO RETURN. FASTING: NO Tessie Simons [facility] LAB BLOOD ORDERABLES Final Res ult [facility] [address], [place] [address] [facility] [place] [facility] [address] [place] [address] from Last 3 Months or Most Recently Relevant to Health Maintenance Insurance [facility] C3 Care Teams Clinical Nursing Director Relationship Specialty Start Date End Date Name, MD Geoff [address] [place] [phone] PCP - General Family Medicine 07/16/22
--- OUTSIDE RECORDS SUMMARY | 2025-03-30 17:22 | XMS_ITS | Encounter Summary ---
Author Organization [facility] Address [address] [facility] [address] [place] [address] Care Team Providers Care Dough Mixer Name Role Phone Name, Geoff DONALDSON Primary Care Provider [phone] Reason for Visit * Reason Onset Date Comments triage 05/03/2023 Encounter Details Date Type Department Care Team ([facility] st Contact Info) Description 05/03/2023 Telephone [facility] [address] [place], [place] [phone] Name, MD Geoff [address] [place] [address] triage Social History Tobacco Use Types Packs/Day [...] 05/03/2023 12:15 PM EDT Triage call with [place] [employer] Assistant [place] [id number] Pt reports episodes of dizziness since 04/26. 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 Pt had been trying to [...] day. Pt is advised to come to [facility] today to be seen by provider and [...] Description 06/23/2025 2:00 PM EDT Office Visit [facility] [address] [place] [address] Name, MD Geoff [address] [place] [address] documented as of this encounter Visit Diagnoses Not on filedocumented in this encounter Care Teams Dough Mixer Relationship Specialty Start Date End Date Name, MD Geoff [address] [place] [address] PCP - General Family Medicine 07/16/22 documented as of this encounter
== END 2025-03-30 13:47 | disposition home or self-care (01) ==
LOC: HO.XRAY 13:46
PROVIDERS: PCP Internal Medicine Geriatric Medicine; Visit Provider Nurse Practitioner Family
DX: R06.00 Dyspnea, unspecified (principal); K21.9 Gastro-esophageal reflux disease without esophagitis; R14.0 Abdominal distension (gaseous); K58.1 Irritable bowel syndrome with constipation
CPT/HCPCS: 71046; 99212

== ENCOUNTER 2025-03-30 13:46 | Outpatient (AMB) | payer MEDICAID, SELFPAY ==
[2025-03-30 13:56] VITALS: BP 94/60; PULSE 72; O2SAT 100; BMI 17.9
--- NOTE | 2025-03-30 13:56 | MHC.OFFVIS ---
Vital Signs 03/30/25 13:56 Height 5 ft 7 in Weight 114 lb BMI 17.9 BP 94/60 Blood Pressure Location Rt brachial Position Sitting Pulse 72 Pulse Source Pulse Oximeter Pulse Oximetry (%) 100 Oxygen Delivery Method Room Air Intake Visit Reasons: f/u, N/S JAYLAN. Needs 30 mins. Intake Note: ESTABLISHED PATIENT - mgmt of GERD + fecal abn. Changes/concerns? C/O epigastric / chest pain, dysphagia / painful swallowing. Pt denies any reflux / heartburn at this time. No additional sx at this time. Transit Proof Machine Operator Required: Yes Transit Proof Machine Operator Services: Transit Proof Machine Operator Present Transit Proof Machine Operator Name: [facility] Qian Tellez [id number] Information Interpreted: clinical only Accompanied by: Self / Same As Patient Allergies No Known Allergies Allergy (Verified 03/30/25 14:01) HPI HPI f/u, N/S JAYLAN. Needs 30 mins.: Details: LAST VISIT GERD (gastroesophageal reflux disease) Postprandial abdominal bloating IBS (irritable bowel syndrome) Chronic idiopathic constipation Screen for colon cancer Plan Patient will restart taking Nexium and famotidine as before. Continue avoiding dietary triggers and late night snacking. Staying upright for minimum 3 hours after meals discussed with patient. Continue Linzess. Increase fluid intake and activity to promote better bowel motility. Patient was encouraged to eat food high in calorie more protein. Patient will return in 3 weeks to re-evaluate. Patient will call our office if her symptoms will continue. Patient is agreeable to this plan and verbalizes understanding of instructions. She was given the opportunity to ask questions and all questions answered. ? Thank you for allowing me to participate in her care Medications Refilled linaclotide (Linzess) 290 mcg PO QAM 30 caps 4RF K59.00 simethicone (Gas Relief (simethicone)) 125 mg PO BID-TID PRN 90 tabs 4RF abdominal distention famotidine (Pepcid) 20 mg PO BEDTIME 30 tabs 11RF K21.9 esomeprazole magnesium (Nexium) 40 mg PO DAILY 30 caps 5RF K21.9 TODAY'S VISIT Patient is here today for follow-up. Patient reports that she has been feeling fairly well. Symptoms of acid reflux are suppressed with medications. Currently she is taking Nexium in the morning and famotidine at bedtime. Patient reports that she is moving her bowels well with Linzess. Denies any melena, hematochezia. Patient just did Cologuard last week and is waiting for report. speech language assistant check [email or web address] website and currently her results are still pending. Patient reports simethicone has been helpful for her. Decreased abdominal bloating. However patient reports that in the past few days since Saturday she has been having hard time taking a deep breath. Patient reports it hurts around her ribs he and in the from around her heart. Patient reports that it hurts even when she moves her left arm up and down as well as when she touches her chest or her left side of her ribs. Patient denies any cough, fever, chills. Denies any nausea or vomiting. Denies any other GI concerning symptoms. [facility] Medical History Mass of finger of right hand Epidermal cyst of neck GERD (gastroesophageal reflux disease) Depression Anxiety Surgical History History of removal of cyst (~09/09/24) History of excision of pilonidal cyst History of esophagogastroduodenoscopy (EGD) Hx of tonsillectomy Family History Father No problems noted. Mother No problems noted. Social History Household Members: None Household Members Other:: alone Alcohol intake: current Alcohol intake frequency: does not drink Current occupational status: disabled Review of Systems Const Denies weight gain and Denies weight loss ENT Reports no additional complaints, Denies dysphagia and Denies odynophagia Card Reports no additional complaints Resp Details: Pain with inspiration Reports no additional complaints GI Denies abdominal pain, Denies belching, Denies melena, Reports bloating (Occasional), Denies change in bowel habits, Denies dysphagia, Denies excessive flatus, Denies dyspepsia, Denies heartburn, Denies diarrhea, Denies loose stools, Reports nausea, Denies odynophagia and Denies vomiting Reports no additional complaints Musc Reports no additional complaints Neuro Reports no additional complaints Psych Reports no additional complaints Endo Reports no additional complaints Physical Exam Vital Signs: Last Vital Signs Pulse 72 03/30/25 13:56 BP 94/60 03/30/25 13:56 Pulse Ox 100 03/30/25 13:56 Oxygen Delivery Method Room Air 03/30/25 13:56 BMI result Body Mass Index 17.9 Const General: healthy appearing, no acute distress and well developed Nutritional Appearance: well nourished Orientation/consciousness: patient oriented x3 Resp Effort & Inspection: normal respiratory effort, able to speak in complete sentences, no tracheal deviation and symmetric chest movement Auscultation: clear to auscultation bilaterally Cardio Rate: regular rate GI Inspection: Yes normal to inspection and No distended Palpation (GI): Soft to palpation, not firm, nontender and No hepatosplenomegaly present Auscultation: normal bowel sounds General: Yes no CVA tenderness Back/Spine/Pelvis Back: no CVA tenderness Skin General skin exam: elasticity normal, turgor normal and dry skin Neuro General: patient oriented x3 Psych Appearance: grossly normal Mental Status: mental status grossly normal Assessment & Plan Assessment & Plan (1) GERD (gastroesophageal reflux disease): Code(s): K21.9 - Gastro-esophageal reflux disease without esophagitis Qualifiers: Esophagitis presence: esophagitis presence not specified Qualified Code(s): K21.9 - Gastro-esophageal reflux disease without esophagitis (2) Postprandial abdominal bloating: Code(s): R14.0 - Abdominal distension (gaseous) (3) IBS (irritable bowel syndrome): Code(s): K58.9 - Irritable bowel syndrome, unspecified Qualifiers: Irritable bowel syndrome type: with constipation Qualified Code(s): K58.1 - Irritable bowel syndrome with constipation (4) Chronic idiopathic constipation: Code(s): K59.04 - Chronic idiopathic constipation Plan Patient will continue taking Nexium and famotidine. Avoid dietary triggers and later snacking. Continue simethicone. Patient reports rib and left side of her chest pain during inspiration. No cough, no fever. Patient denies any injury. Patient is requesting muscle relaxant, script for cyclobenzaprine sent. Will order chest x-ray. Patient was encouraged to go to ED if she will have increased pain or shortness of breath. She you may need a CT scan to rule out PE. Patient however had normal exam. Patient will follow-up in 3 months, sooner on as needed basis. She is agreeable to this plan and verbalizes understanding of instructions. She was given the opportunity to ask questions and all questions answered. Thank you for allowing me to participate in her care Orders: Orders XR chest 2V Today R06.00 - Dyspnea, unspecified Medications: Refilled simethicone (Gas Relief (simethicone)) 125 mg PO BID-TID PRN 90 tabs 4RF abdominal distention cyclobenzaprine 5 mg PO BEDTIME PRN 7 tabs 0RF muscle spasm Coding Level of Care Code Est Pt Level 4 (62986) Complex EM visit Add On G2211 Diagnoses Gastroesophageal reflux disease, unspecified whether esophagitis present K21.9 Esophagitis presence: esophagitis presence not specified Postprandial abdominal bloating R14.0 Irritable bowel syndrome with constipation K58.1 Irritable bowel syndrome type: with constipation Chronic idiopathic constipation K59.04 Time Spent (min) 35 Comment 25 minutes spent with patient and additional 10 minutes spent reviewing her records
--- OUTSIDE RECORDS SUMMARY | 2025-03-30 15:56 | XMS_ITS | Encounter Summary ---
Author Organization [employer] Address [address] [place] [address] Care Team Providers Care Hospital Educator Name Role Phone Name, Geoff DONALDSON Primary Care Provider [phone] Encounter Details Date Type Department Care Team ([facility] st Contact Info) Description 03/01/2025 Orders Only [facility] [address] [place] [address] Katty Hong Social History Tobacco Use Types Packs/Day Years Used Date Smoking Tobacco: Some Days Cigarettes Smokeless Tobacco: Never Alcohol Use Standard Drinks/Week Comments Never 0 (1 standard drink = 0.6 oz pur e alcohol) Depression Answer Date Recorded Patient Health Questionnaire-9 Score 16 03/03/2025 Patient Health Questionnaire-9 Score 16 03/03/2025 Last PHQ-9: Questionnaire Data Not on file 0 03/03/2025 Housing Stability Answer Date Recorded What is your housing situation today? I have mayelin huynh 11/02/[address] you li ve. Do you have problems with any of the following? None of the above 11/02/2024 Food Insecurity Answer Date Recorded Within the past 12 months, y ou worried that your food would run out before you got money to buy more: Never True 11/02/2024 Within the past 12 months,th e food you bought just didn't last and you didn't have enough money to get more: Never True 01/2024 Transportation Answer Date Recorded In the past 12 months, has l ack of transportation kept you from medical appts, meetings, work or from getting things needed for daily living? No 11/02/2024 Utilities Answer Date Recorded In the past 12 months, has t he electric, gas, oil or water company threatened to shut off services in your home? No 11/02/2024 Depression Answer Date Recorded Patient Health Questionnaire-2 Score 2 03/03/2025 Internet Access Answer Date Recorded Internet Access Q1 Yes 11/02/2024 Internet Access Q2 Not on file 11/02/2024 Comments Unknown Sex and Gender Information Value Date Recorded Sex Assigned at Female 10/01/2022 10:29 AM EDT Legal Sex Female 10:29 AM EDT Gender Identity Female 10/01/2022 10:29 AM EDT Sexual Orientation Straight 05/03/2023 4: 25 PM EDT documented as of this encounter Plan of Treatment Upcoming Encounters Date Type Department Care Team (Late st Contact Info) Description 06/23/2025 2:00 PM EDT Office Visit [facility] [address] [place] [address] Name, MD Geoff [address] [place] [address] documented as of this encounter Procedures Procedure Name Priority Date/Time Associated Diagnosis Comments PAP/HPV Routine 02/02/2025 12:00 AM EST documented in this encounter Results * PAP/HPV (02/02/2025 12:00 AM EST) Pap Smear 1. NILM 1. NILM [facility] HPV Not Detected Undetected, Indeterminat e, Quantitative , Not Detected [facility] Narrative [facility] - 02/02/2025 12:00 AM EST See care everywhere lab 02/02/2025 us Historical Provider HEALTH MAINTENANCE Edited Result - Final [facility] documented in this encounter Visit Diagnoses Not on filedocumented in this encounter Care Teams Hospital Educator Relationship Specialty Start Date End Date Name, MD Geoff [address] [place] [id number] PCP - General Family Medicine 07/16/22 documented as of this encounter
--- OUTSIDE RECORDS SUMMARY | 2025-03-30 15:56 | XMS_ITS | Clinical Summary ---
Author Organization [facility] Address [address] [place] [address] Phone Care Team Providers Care Wild Life Photographer Name Role Phone Name, Geoff DONALDSON Primary Care Provider [phone] Allergies No known active allergies Medications chlorhexidine (Hibiclens) 4 % external liquid USE TO WASH VAGINAL AREA ONCE WEEKLY AND INCREASE TO DAILY TOLERATED 3 Active calcium carbonate (CALCIUM ORAL) CALCIUM 250 MG CAP: Take by mouth. - Oral Active multivitamin (MULTI-DAY ORAL) Take by mouth. Activ e TOPIRAMATE ORAL Take by mouth. Active GABAPENTIN ORAL Take by mouth. Active OMEPRAZOLE ORAL Take by mouth. Active clindamycin phosphate 1 % gel, once daily Apply twice daily to external area 9 Active iloperidone (FANAPT) 6 mg tablet Take by mouth. Activ e gabapentin (NEURONTIN) 300 mg capsule Take 300 mg by mouth 2 times daily. Active clotrimazole-be tamethasone (LOTRISONE) 1-0.05 % cream Apply to area sparingly twice a day for up to two weeks 8 Active naproxen (NAPROSYN) 500 mg tablet Take 1 Tab by mouth 2 times daily for 360 days. Take on day your cycles starts and continue until it ends. 8 Active QUEtiapine (SEROquel) 300 mg tablet Take 300 mg by mouth 2 times daily. Active FLUoxetine (PROzac) 20 mg capsule Take 20 mg by mouth daily. Active Active Problems Problem Noted Date Diagnosed Date Pelvic pain 06/19/2022 Overview (2024): Last Assessment & Plan: No pain on exam today. GC/CT collected, will treat as indicated. Urine hCG negative. Serum hCG 5 today 06/19/22. Possibly due to heterophile antibody, however may be related to malignancy. I would like to review the ultrasound reports from 05/22 and 06/12 to assess for any ovarian pathology. Patient asked to sign release of records so that I can obtain and review most recent ultrasound results. Dysplasia of cervix, high grade RALPH 2 07/18/2018 Depression 06/09/2015 Encounters Date Type Department Care Team Description 02/04/2025 1:42 PM EST - 02/04/2025 11:59 PM EST Hospital Encounter Radiology Department - [address] [phone] Encounter for screening mammogram for malignant neoplasm of breast Discharge Disposition: Home or Self Care 02/02/2025 10:00 AM EST Office Visit Obstetrics and Gynecology - [address] [phone] Prema Schafer CNM Screening for cervical cancer (Primary Dx) from Last 3 Months Surgical History Surgery Date Site/Laterality Comments OTHER SURGICAL HISTORY PROCEDURE: ---- OTHER ----; COMMENT: his coocig surgery HYSTEROSCOPY 06/16/2021 PROCEDURE: SD HYSTEROSCOPY BX ENDOMETRIUM&/POLYPC W/WO D&C Medical History Medical History Date Comments History of cervical dysplasia DX :History of cervical dysplasia Family History Medical History Relation Name Comments No Known Problems Brother Diabetes Father No Known Problems Mother No Known Problems Sister x3 Breast cancer Neg Hx Relation Name Status Comments Brother Father Alive Mother Alive Other other half silings Sister x3 Social History Tobacco Use Types Packs/Day Years Used Date Smoking Tobacco: Some Days Smokeless Tobacco: Never Alcohol Use Standard Drinks/Week Comments Yes 0 (1 standard drink = 0.6 oz pur e alcohol) Food Access & Nutrition Answer Date Rec orded Do you have access to a vari ety of food including fruits and vegetables? Yes 10/13/2024 Health Literacy Answer Date Recorded How often do you need to hav e someone help you when you read instructions, pamphlets, or other written material from your doctor or pharmacy? Never 10/13/2024 Caregiver: How often do you need to have someone help you when you read instructions, pamphlets, or other written material from your doctor or pharmacy? Not on file 10/13/2024 Transportation Answer Date Recorded Has the lack of transportati on kept you from meetings, work, or from getting things needed for daily living? Unable to respond 10/13/2024 Has the lack of transportati on kept you from medical appointments or from getting medications? Yes 10/13/2024 Social Isolation Answer Date Recorded How often do you feel lonely or isolated from those around you? Unable to respond 10/13/2024 Food Risk Answer Date Recorded Within the past 12 months we worried whether our food would run out before we got money to buy more. Sometimes true 024 Within the past 12 months th e food we bought just didn't last and we didn't have money to get more. Sometimes true 10/13/2024 Dependent Care Answer Date Recorded Do you need help finding or paying for care for your loved ones. For example, children's tutor nursery or elderly care for an older adult? No 10/13/2024 Education Answer Date Recorded Do you think completing more education or training, like finishing a GED, going to college, or learning a trade, would be helpful for you? N/A 10/13/2024 Employment and Income Answer Date Recor ded During the last four weeks, have you been actively looking for work? Unable to respond 10/13/2024 Living Situation Answer Date Recorded What is your living situation? 1 12/13/2023 Comments No Sex and Gender Information Value Date Recorded Sex Assigned at Female 10/13/2024 4:25 PM EST Legal Sex Female 2:15 AM EST Gender Identity Female 10/13/2024 4:25 PM EST Sexual Orientation Straight 10/13/2024 4: 25 PM EST Obstetrics History Para Term AB IAB SAB Ectopic Multiple Livin g Live Births 0 0 0 0 0 0 0 0 0 0 0 Last Filed Vital Signs Vital Sign Reading Time Taken Comments Blood Pressure 98/60 02/02/2025 10:06 AM EST Pulse 75 02/02/2025 10:06 AM EST Temperature - - Respiratory Rate - - Oxygen Saturation - - Inhaled Oxygen Concentration - - Weight 53.1 kg (117 lb) 02/02/2025 10:06 AM EST Height 170.2 cm (5' 7 ) 05/20/2024 3:39 PM EDT Body Mass Index 18.32 05/20/2024 3:39 PM EDT Plan of Treatment Upcoming Encounters Date Type Department Care Team (Late st Contact Info) Description 06/01/2025 1:45 PM EDT Office Visit [place]stetrics [place] [facility] [place] [address] [place] [address] Prema Schafer, [facility] [address] [place] [address] Health Maintenance Due Date Last Done Comments Hepatitis B Vaccines (1 of 3 - 19+ 3-dose series) 1995 Pneumococcal Vaccine: Pediatrics (0 to 5 Years) and At-Risk Patients (6 to 64 Years) (1 of 2 - PCV) 1995 Cholesterol Screening (Lipid Panel) 11/10/2022 Depression Screening 11/10/2022 Colorectal Cancer Screening: Stool Based Tests (FOBT/FIT) 05/08/2024 05/08/2023 Social Influencers of Health Screening 10/13/2025 10/13/2024 DTaP,Tdap,and Td Vaccines (2 - Td or Tdap) 11/13/2026 11/13/2016 Breast Cancer Screening 02/04/2027 02/05/20 25, 02/28/2023, 01/01/2022, Additional history exists Cervical Cancer Screening: HPV 02/02/2030 02/02/2025, 05/20/2024 HIV Screening Completed 12/19/2016 Hepatitis C Screening Completed 12/19/2016 COVID-19 Vaccine Completed 11/02/2024, , 02/27/2021 Influenza Vaccine Completed 11/02/2024, , 10/20/2019, Additional history exists HIB Vaccines Aged Out No longer eligi ble based on patient's age to complete this topic HPV Vaccines Aged Out No longer eligi ble based on patient's age to complete this topic Hepatitis A Vaccines Aged Out No long er eligible based on patient's age to complete this topic IPV Vaccines Aged Out No longer eligi ble based on patient's age to complete this topic MMR Vaccines Aged Out No longer eligi ble based on patient's age to complete this topic Meningococcal ACWY Vaccine Aged Out N o longer eligible based on patient's age to complete this topic Meningococcal B Vaccine Aged Out No l onger eligible based on patient's age to complete this topic RSV Immunization Patients Under 20 months Aged Out No longer eligible based on patient's age to complete this topic Varicella Vaccines Aged Out No longer eligible based on patient's age to complete this topic Procedures Procedure Name Priority Date/Time Associated Diagnosis Comments MG MAMMO DIGITAL SCREENING W OJHN BILAT Routine 02/04/2025 2:07 PM EST Encounter for screening mammogram for malignant neoplasm of breast PAP SMEAR Routine 02/02/2025 10:31 AM EST Screening for cervical cancer HPV WITH REFLEX GENOTYPE Routine 02/02/2025 10:31 AM EST Screening for cervical cancer HEPATITIS C SCREENING Routine 12/19/2016 HIV SCREENING Routine 12/19/2016 from Last 3 Months or Most Recently Relevant to Health Maintenance Results * MG Mammo Digital Screening w John bilat (02/04/2025 2:07 PM EST) Anatomical Region Laterality Modality Breast Bilateral Mammography 02/05/2025 10:0 5 AM EST Impressions 02/05/2025 10:19 AM EST 1. No mammographic evidence of malignancy 2. Extremely dense breast parenchyma. BI-RADS CATEGORY: 2 - BENIGN RECOMMENDATION: Screening bilateral mammogram is recommended in 1 year. Mammo Location: [facility], [address] [place] [address], [id number], . -------- FINAL REPORT -------- Dictated By: Emile Otto Dictated Date: 02/05/2025 10:05 ET Assigned Physician: Emile Otto Reviewed and Electronically Signed By: Emile Otto Signed Date: 02/05/2025 10:19 ET Workstation ID: [id number] Transcribed By: Self Edit Transcribed Date: 02/05/2025 10:05 ET Narrative 02/05/2025 10:19 AM EST A BILATERAL DIGITAL 3D SCREENING MAMMOGRAPHY HISTORY: Routine screening. ??No family history of breast cancer. COMPARISON: Multiple priors dating back to 07/22/2020 Technique: Bilateral full field digital mammography (3D) was performed using standard CC and MLO projections CAD ??was used to evaluate this mammogram. FINDINGS: Right: No suspicious masses, groups of microcalcification or areas of architectural distortion identified. Stable typically benign parenchymal asymmetries. Left: No suspicious masses, groups of microcalcification or areas of architectural distortion identified. Stable typically benign parenchymal asymmetries. BREAST DENSITY: D - The breasts are extremely dense which lowers the sensitivity of mammography. Procedure Note Emile Otto MD - 02/05/2025 A BILATERAL DIGITAL 3D SCREENING MAMMOGRAPHY HISTORY: Routine screening. No family history of breast cancer. COMPARISON: Multiple priors dating back to 07/22/2020 Technique: Bilateral full field digital mammography (3D) was performedusing standard CC and MLO projections CAD was used to evaluate this mammogram. FINDINGS: Right: No suspicious masses, groups of microcalcification or areas ofarchitectural distortion identified. Stable typically benign parenchymalasymmetries. Left: No suspicious masses, groups of microcalcification or areas ofarchitectural distortion identified. Stable typically benign parenchymalasymmetries. BREAST DENSITY: D - The breasts are extremely dense which lowers thesensitivity of mammography. IMPRESSION: 1. No mammographic evidence of malignancy 2. Extremely dense breast parenchyma. BI-RADS CATEGORY: 2 - BENIGN RECOMMENDATION: Screening bilateral mammogram is recommended in 1 year. Mammo Location: [facility], [address] [place] [address], [id number], . -------- FINAL REPORT -------- Dictated By: Emile Otto Dictated Date: 02/05/2025 10:05 ET Assigned Physician: Emile Otto Reviewed and Electronically Signed By: Emile Otto Signed Date: 02/05/2025 10:19 ET Workstation ID: [id number] Transcribed By: Self Edit Transcribed Date: 02/05/2025 10:05 ET us Prema Schafer CNM IMG BI PROCEDURES Final Result * HPV with reflex genotype (02/02/2025 10:31 AM EST) HPV Negative Negative LAB MICROBIOLOGY METHOD 02/04/2025 3:40 PM [facility] Brushing/Spatula Cervix uteri structure / Unknown 02/02/2025 10:31 AM EST 02/04/2025 5:54 AM EST Prema Schafer CNM LAB MOLECULAR DIAGNOSTICS ORDE RABLES Final Result [facility] [address] [place] [address], [place] [phone] * Pap smear (02/02/2025 10:31 AM EST) Interpretation Negative for intraepithelial lesion or malignancy 02/05/2025 2:12 PM [facility] General Categorization Negative 02/05/2025 2:12 PM [facility] Specimen Adequacy Satisfactory for evaluation, endocervical/mann sformation zone component present 02/05/2025 2:12 PM [facility] Pap Methodology Liquid Based Pap Test 02/05/2025 2:12 PM [facility] Disclaimer The Pap test is a screening test which carries an inherent false negative rate. These test results should be correlated with the patient's clinical findings and history. This Pap test was processed using an automated screening system. Technical cytopathology services provided by [facility], at [address] [place] [address] (CLIA # [id number]/Jelena Bull MD, Quarry Worker.) 02/05/2025 2:12 PM [facility] Console Pap Interpretation Reported 02/05/2025 2:[address] [facility] Brushing/Spatula Cervix uteri structure / Unknown 02/02/2025 10:31 AM EST 02/02/2025 10:31 AM EST Prema Schafer CNM LAB CYTOLOGY ORDERABLES Final Result [facility] [address] [place] [address], * HIV Screening (12/19/2016) HIV Screening Abstracted Historical Provider HEALTH MAINTENANCE Final Result * Hepatitis C Screening (12/19/2016) Hepatitis C Screening Abstracted Historical Provider HEALTH MAINTENANCE Final Result from Last 3 Months or Most Recently Relevant to Health Maintenance Insurance MEDICAID - [place] Care Teams Wild Life Photographer Relationship Specialty Start Date End Date Name, MD Geoff [address] [place] [address] PCP - General Internal Medicine 05/24/15
--- OUTSIDE RECORDS SUMMARY | 2025-03-30 15:56 | XMS_ITS | Clinical Summary ---
Author Organization [facility] Address [address] [facility] [place] [address] Care Team Providers Care Environmental Web Crawler Name Role Phone Unavailable Primary Care Provider Unavailabl e Source Comments PLEASE NOTE, if this patient is a minor, it may be UNLAWFUL to discuss sensitive information that is contained in these records (such as FAMILY PLANNING, MENTAL HEALTH or SUBSTANCE ABUSE) with the minor patient's parent or other person without the patient's specific authorization.[facility] Allergies No known active allergies Medications No known medications Active Problems No known active problems Social History Tobacco Use Types Packs/Day Years Used Date Smoking Tobacco: Every Day Cigarettes Smokeless Tobacco: Never Tobacco Cessation:Ready to Q uit: Not Asked; Counseling Given: Not Answered Social Connections Answer Date Recorded Connectedness 0 08/12/2024 Financial Resource Strain Answer Date R ecorded Financial Resource Strain 0 2021 Stress Answer Date Recorded Stress 0 06/27/2022 Physical Activity Answer Date Recorded Physical Activity 0 06/27/2022 Food Insecurity Answer Date Recorded Food 0 08/27/2024 Transportation Needs Answer Date Record ed Transportation 0 06/27/2022 Housing Stability Answer Date Recorded Housing 0 06/27/2022 Safety and Environment Answer Date Enrique rded Safety 0 06/27/2022 Utilities Answer Date Recorded Utilities 0 06/27/2022 Employment Answer Date Recorded Stress 0 08/12/2024 Comments Unknown Sex and Gender Information Value Date Recorded Sex Assigned at Not on file Legal Sex Female 7:17 AM PST Gender Identity Not on file Sexual Orientation Not on file Last Filed Vital Signs Vital Sign Reading Time Taken Comments Blood Pressure 113/79 11/06/2024 12:55 PM EST Pulse 70 11/06/2024 12:55 PM EST Temperature - - Respiratory Rate - - Oxygen Saturation - - Inhaled Oxygen Concentration - - Weight - - Height - - Body Mass Index - - Plan of Treatment Upcoming Encounters Date Type Department Care Team ([facility] st Contact Info) Description 04/05/2025 1:00 PM EDT Office Visit [facility] [address] [place] [address] Nazanin Diaz [address] [place] [address] Health Maintenance Due Date Last Done Comments Anxiety Screening 1976 Dental FMX/Pano 1976 HPV Screening 1976 Hepatitis C Screening 1976 Lipid Screening 1976 Pap + HPV 1976 Tobacco Cessation Counseling (#1) 1976 HIV Screening 1991 Relationship Safety Screening/Counseling 1991 Imm-Hepatitis B (1 of 3 - 19 + 3-dose series) 1995 Imm-Pneumococcal (1 of 2 - PCV) 1995 Cervical Cancer Screening 1997 Pap Smear 1997 Breast Cancer Screening (Mammogram) 2016 CT Colonography 2021 Colonoscopy 2021 Fecal DNA 2021 Flexible Sigmoidoscopy 2021 Colorectal Cancer Screening 05/07/2024 FIT/gFOBT 05/07/2024 05/07/2023 Alcohol and Drug Screen 12/02/2024 Depression Annual Screen 12/02/2024 Dental BW 10/04/2025 10/02/2024, 07/04, 06/27/2022 Dental Examination 10/04/2025 10/02/2024, 0 07/31/2023, 06/27/2022 Dental Perio Charting 10/04/2025 10/02/2024, 023 Dental Prophy 10/04/2025 10/02/2024, 07/04, 06/27/2022 Hypertension Screening (#1) 11/06/2025 Imm-DTaP/Tdap/Td (2 - Td or Tdap) 11/13/2026 016 Diabetes Screening 08/04/2027 08/04/2024, 0 05/03/2023, 05/03/2023, Additional history exists [id number] Completed 11/02/2024, 02/27/2021 Imm-Influenza Completed 11/02/2024, 07/2021, 10/20/2019, Additional history exists Cervical Ablation/Cold-Knife Conization Discontinued Cervical Cryotherapy Discontinued Colposcopy Discontinued Endometrial Biopsy Discontinued Excision/Leep Discontinued HPV Genotyping Discontinued Vaginal Pap Discontinued Vulvoscopy Discontinued Procedures Procedure Name Priority Date/Time Associated Diagnosis Comments COMP PERIODONTAL EVALUATION - NEW/EST PATIENT Routine 10/02/2024 1:40 PM EDT [facility] Encounter for dental examination and cleaning without abnormal findings BITEWINGS - FOUR RADIOGRAPHIC IMAGES Routine 10/02/2024 1:40 PM EDT Caries Encounter for dental examination and cleaning without abnormal findings PROPHYLAXIS - ADULT Routine 10/02/2024 1 :40 PM EDT Caries Encounter for dental examination and cleaning without abnormal findings PERIODIC ORAL EVALUATION ESTABLISHED PATIENT Routine 10/02/2024 1:40 PM EDT [facility]ies Encounter for dental examination and cleaning without abnormal findings from Last 3 Months or Most Recently Relevant to Health Maintenance Insurance [place] D[facility] [facility]
--- OUTSIDE RECORDS SUMMARY | 2025-03-30 15:56 | XMS_ITS | Encounter Summary ---
Author Organization [facility] Address [address] [facility] [address] [place] [address] Care Team Providers Care Chemical Checker Name Role Phone Name, Geoff DONALDSON Primary Care Provider [phone] Encounter Details Date Type Department Care Team ([facility] Contact Info) Description 02/08/2025 Orders Only [facility] [address] [place] [address] Provider, MD Batool Social History Tobacco Use Types Packs/Day Years Used Date Smoking Tobacco: Some Days Cigarettes Smokeless Tobacco: Never Alcohol Use Standard Drinks/Week Comments Never 0 (1 standard drink = 0.6 oz pur e alcohol) Housing Stability Answer Date Recorded What is [...] off services in your home? No 11/02/2024 Internet Access Answer Date Recorded Internet Access [...] Description 06/23/2025 2:00 PM EDT Office Visit [facility] [address] [place] [address] Name, MD Geoff [address] [place] [address] documented as of this encounter Procedures Procedure Name Priority Date/Time Associated Diagnosis Comments HM MAMMOGRAPHY Routine 02/04/2025 3:18 PM EST documented in this encounter Results * Hm Mammography (02/04/2025 3:18 PM EST) Anatomical Region Laterality Modality Other Historical Provider HEALTH MAINTENANCE Final Result documented in this encounter Visit Diagnoses Not on filedocumented in this encounter Care Teams Chemical Checker Relationship Specialty Start Date End Date Name, MD Geoff [address] [place] [address] PCP - General Family Medicine 07/16/22 documented as of this encounter
--- OUTSIDE RECORDS SUMMARY | 2025-03-30 15:56 | XMS_ITS | Clinical Summary ---
Author Organization [employer] Address [address] [facility] [address] [place] [address] Care Team Providers Care Wheelchair Rental Clerk Name Role Phone Name, Geoff DONALDSON Primary Care Provider [phone] Allergies No known active allergies Medications traZODone (Desyrel) 150 MG tablet Take 1 tablet by mouth at bed time. Active prazosin (Minipress) 2 MG capsule Take 2 capsules by mouth at bed time. Active perphenazine 8 MG tablet Take 1 tablet by mouth every 12 (twelve) hours. 05/14/20 16 Active FLUoxetine (PROzac) 20 MG capsule Take 20 mg by mouth in the morning. 05/14/20 16 Active SUMAtriptan (Imitrex) 50 MG tablet One as needed for migraines, may repeat in 2 hours if needed, no more than 2 per day 10 tablet 2 02/27/20 23 Active naproxen (Naprosyn) 500 MG tablet Take 1 tablet (500 mg) by mouth if needed in the morning and at bedtime for mild pain. 40 tablet 1 07/21/20 24 025 Active baclofen (Lioresal) 10 MG tablet Take 1 tablet (10 mg) by mouth if needed in the morning, at noon, and at bedtime for muscle spasms. 60 tablet 1 07/21/20 24 Active Diclofenac Sodium 1 % gel Apply 2 g topically if needed in the morning, at noon, in the evening, and at bedtime (pain). 150 g 3 07/21/20 24 Active topiramate (Topamax) 50 MG tablet Take 50 mg by mouth Once per day. 30 tablet 3 08/04/20 24 Active Austedo XR 24 MG tablet sustained-rele ase 24 hour Take 1 tablet by mouth Once per day. 02/11/20 25 Active QUEtiapine (SEROquel) 50 MG tablet 07/30/20 24 Active perphenazine 4 MG tablet TAKE 1 TABLET BY MOUTH TWICE DAILY WITH 8 MG Active esomeprazole (NexIUM) [address] capsule Take 1 capsule (40 mg) by mouth before breakfast. Do not open capsule. 30 capsule 3 03/03/20 25 025 Active gabapentin (Neurontin) 800 MG tabletIndicati ons:Chronic pain syndrome TAKE 1 TABLET BY MOUTH TWICE A DAY 60 tablet 03/10/20 25 Active iloperidone (Fanapt) 2 MG tablet Take 4 mg by mouth in the morning. 07/16/20 22 025 Discontinued(Th erapy completed) esomeprazole (NexIUM) [address] capsule Take 40 mg by mouth before breakfast. Do not open capsule. 025 Discontinued(Re order (will not trigger notification to Pharmacy)) gabapentin (Neurontin) 800 MG tabletIndicati ons:Chronic pain syndrome TAKE 1 TABLET BY MOUTH TWICE A DAY 60 tablet 12/22/19 25 025 Discontinued(Re order (will not trigger notification to Pharmacy)) Active Problems Problem Noted Date Diagnosed Date Bulimia nervosa, purging type 03/03/2025 Concussion without loss of consciousness 025 History of depression 03/03/2025 Learning disability 03/03/2025 Ovarian cyst 03/03/2025 Panic disorder with agoraphobia 03/03/2025 Positive test 03/03/2025 Syncope 03/03/2025 Tobacco use 03/03/2025 Schizophrenia 03/03/2025 Grief 03/03/2025 Pelvic pain 06/19/2022 Overview (02/26/2023): Last Assessment & Plan: No pain on [...] obtain and review most recent ultrasound results. Complex cyst of both ovaries 06/08/2022 Migraine 03/03/2019 Carpal tunnel syndrome 02/20/2019 Numbness of hand 09/25/2018 Tired 07/24/2018 Dysplasia of cervix, high grade RALPH 2 07/18/2018 Gastroesophageal reflux disease 12/04/2017 Dysphagia 05/27/2017 Heartburn 05/27/2017 Edema 05/28/2016 Peripheral neuropathic pain 05/28/2016 Anxiety 05/14/2016 Varicose veins of lower extremity 05/14/2016 Depression 06/09/2015 Encounters Date Type Department Care Team Description 03/10/2025 Refill [facility] [address] [place] [address] [phone] Geoff Slaughter MD Chronic pain syndrome 03/03/2025 3:30 PM EDT Office Visit [facility] [address] [place] [address] Geoff Slaughter MD Depression, unspecified depression type (Primary Dx); Schizophrenia, unspecified type (CMS/HCC); Grief; Fibromyalgia; Screening for colon cancer 03/03/2025 Travel 03/01/2025 Orders Only [facility] [address] [place], [place] [phone] Katty Hong 02/12/2025 Population Health Risk Score [facility] Department [address] [place] [phone] Provider, Population Health Generic 02/08/2025 Orders Only [facility] [address] [place] [address] ProviderBatool MD from Last 3 Months Immunizations Name Administration Dates Next Due Influenza injectable quadriv alent IIV4 with preservative 09/22/2018 Influenza injectable quadriv alent preservative free 01/09/2021,10/20/2019,09/20/2018,2015,07/20/2015 Influenza, Split (incl. julián fied surface antigen) 09/28/2013 Influenza, seasonal, injecta ble, preservative free 11/02/2024,08/02/2017 Estela SARS-CoV-2 Vaccination 02/27/2021 Pfizer Covid-19 Vaccine 12+ 11/02/2024 Tdap 11/13/2016 Social History Tobacco Use Types Packs/Day Years Used Date Smoking Tobacco: Some Days Cigarettes Smokeless Tobacco: Never Tobacco Cessation:Ready to Q uit: Not Asked; Counseling Given: Not Answered Alcohol Use Standard Drinks/Week Comments Never 0 (1 standard drink = 0.6 oz pur e alcohol) Depression Answer Date Recorded Patient Health Questionnaire-9 Score 16 03/03/2025 Patient Health Questionnaire-9 Score 16 03/03/2025 Last PHQ-9: Questionnaire Data Not on file 0 03/03/2025 Housing Stability Answer Date Recorded What is your housing situation today? I have mayelin lino 11/02/[address] you li [...] Orientation Straight 05/03/2023 4: 25 PM EDT Last Filed Vital Signs Vital Sign Reading Time Taken Comments Blood Pressure 106/67 03/03/2025 3:24 PM EDT Pulse 63 03/03/2025 3:24 PM EDT Temperature 37.1 ??C (98.7 ??F) 03/03/2025 3:24 PM ED T Respiratory Rate 21 03/03/2025 3:24 PM EDT Oxygen Saturation 98% 03/03/2025 3:24 PM EDT Inhaled Oxygen Concentration - - Weight 47.4 kg (104 lb 9.6 oz) 03/03/2025 3:24 P M EDT Height 170.2 cm (5' 7 ) 03/03/2025 3:24 PM EDT Body Mass Index 16.38 03/03/2025 3:24 PM EDT Plan of Treatment Upcoming Encounters Date Type Department Care Team (Late st Contact Info) Description 06/23/2025 2:00 PM EDT Office Visit [facility] [address] [place] [address] Name, MD Geoff [address] [place] [address] Health Maintenance Due Date Last Done Comments CT Colonography 1976 Colonoscopy 1976 FIT DNA/Cologuard 1976 HIV Screening 1976 Lipid Panel 1976 Sigmoidoscopy 1976 Alcohol/Substance Use Screening 1988 Family Planning (PISQ) 1991 Hepatitis B Vaccines (1 of 3 - 19+ 3-dose series) 1995 Pneumococcal Vaccine: Pediatrics (0 to 5 Years) and At-Risk Patients (6 to 49) Years) (1 of 2 - PCV) 1995 Colorectal Cancer Screening 05/08/2024 FIT 05/08/2024 05/08/2023 FOBT 05/08/2024 05/08/2023 SDOH Screening 11/02/2025 11/02/2024 Depression Screening 03/03/2026 03/03/2025, 03/03/20 25 Tobacco Screening 03/03/2026 03/03/2025 Zoster Vaccines (1 of 2) 2026 DTaP/Tdap/Td Vaccines (2 - Td or Tdap) 11/13/2026 11/13/2016 Mammogram 02/04/2027 02/04/2025, 03/0 05/2025, 02/04/2025, Additional history exists Cervical Cancer Screening 02/02/2030 HPV/Cotest 02/02/2030 02/02/2025, 02/14/2021 Pap Smear 02/02/2030 02/02/2025, 02/14/2021 RSV Patients and Patients Aged 60 years or older (1 - 1-dose 75+ series) 2051 Hepatitis C Screening Completed 05/03/2023 COVID-19 Vaccine Completed 11/02/2024, , 02/27/2021 Influenza [...] patient's age to complete this topic Meningococcal Vaccine Aged Out No jessica lesly eligible based on patient's age to complete this topic RSV under 20 months Aged Out No longe r eligible based on patient's age to complete this topic Rotavirus Vaccines Aged Out No longer eligible based on patient's age to complete this topic Procedures Procedure Name Priority Date/Time Associated Diagnosis Comments MAMMOGRAPHY Routine 02/04/2025 3:18 PM EST PAP/HPV Routine 02/02/2025 12:00 AM EST FECAL GLOBIN BY IMMUNOCHEMISTRY Routine 05/08/2023 12:00 AM EDT HEPATITIS PANEL, GENERAL Routine 05/03/2023 2:52 PM EDT Dizziness and giddiness from Last 3 Months or Most Recently Relevant to Health Maintenance Results * Mammography (02/04/2025 3:18 PM EST) Anatomical Region Laterality Modality Other us Historical Provider MD HEALTH MAINTENANCE Final Result * PAP/HPV (02/02/2025 12:00 AM EST) Pap Smear 1. NILM 1. NILM [facility] HPV Not Detected Undetected, Indeterminat e, Quantitative , Not Detected [facility] Narrative [facility] - 02/02/2025 12:00 AM EST See care everywhere lab 02/02/2025 us Historical Provider HEALTH MAINTENANCE Edited Result - Final [facility] * Fecal Globin by Immunochemistry (05/08/2023 12:00 AM EDT) Fecal Globin By Immunochemistry SEE NOTE [facility] [employer] Comment: ??FECAL GLOBIN BY IMMUNOCHEMISTRY ?Micro Number: ?[id number] ??Test Status: ? Final ??Specimen Source: ?? Insure (tm) fobt test card ??Specimen Quality: ??Inadequate ??Fecal Globin: ?Test not performed. ? Improper collection of the sample by patient. 05/08/2023 05/19/2023 1:2 7 AM EDT Narrative [facility] - 05/20/2023 10:15 AM EDT FASTING: UNKNOWN Geoff Slaughter MD LAB BODY FLUIDS AND STOOLS ORDER VAZQUEZ Final Result [facility] [address], [place] [address] [facility] [employer] [facility] [address] [place] [address] * Hepatitis Panel, General (05/03/2023 2:52 PM EDT) Hepatitis A Antibody Total NON-REACT MINH NON-REACT MINH [facility] [employer] Comment: For additional information, please refer to http://education.[employer]/faq/ZRK753 (This link is being provided for informational/ educational purposes only.) Hepatitis B Surface Antibody QL NON-REACT MINH NON-REACT MINH [facility] Hepatitis B Surface Ag NON-REACT MINH NON-REACT MINH [facility] [employer] Hepatitis B Core Antibody Total NON-REACT MINH NON-REACT MINH [facility] [employer] Hepatitis C Antibody NON-REACT MINH NON-REACT MINH [facility] [employer] Index 0.08 <1.00 [facility] [employer] Comment: HCV antibody was non-reactive. There is no laboratory evidence of HCV infection. In most cases, no further action is required. However, if recent HCV exposure is suspected, a test for HCV RNA (test code 76897) is suggested. For additional information please refer to http://education.[employer]/faq/JBK07k6 (This link is being provided for informational/ educational purposes only.) 05/03/2023 2:52 PM EDT 05/03/2023 2:53 PM EDT Narrative [facility] - 05/06/2023 11:14 AM EDT FASTING:NO COLLECTION KIT GIVEN TO PATIENT. PATIENT ADVISED TO RETURN. FASTING: NO Tessie Simons [facility] LAB BLOOD ORDERABLES Final Res ult [facility] [address], [place] [address] [employer] [employer] [address] [place] [address] from Last 3 Months or Most Recently Relevant to Health Maintenance Insurance [facility] C3 Care Teams Wheelchair Rental Clerk Relationship Specialty Start Date End Date Name, MD Geoff [address] [place] [phone] PCP - General Family Medicine 07/16/22
--- OUTSIDE RECORDS SUMMARY | 2025-03-30 15:56 | XMS_ITS | Encounter Summary ---
Author Organization [facility] Address [address] [facility] [address] [place] [address] Care Team Providers Care Flag Car Driver Name Role Phone Name, Geoff DONALDSON Primary Care Provider [phone] Reason for Visit * Reason Onset Date Comments triage 05/03/2023 Encounter Details Date Type Department Care Team ([facility] st Contact Info) Description 05/03/2023 Telephone [facility] [address] [place], [place] [phone] Name, MD Geoff [address] [place] [address] triage Social History Tobacco Use Types Packs/Day Years Used Date Smoking Tobacco: Some Days Cigarettes Smokeless Tobacco: Never Alcohol Use Standard Drinks/Week Comments Never 0 (1 standard drink = 0.6 oz pur e alcohol) Comments Unknown Sex and Gender Information Value Date Recorded Sex Assigned at Female 10/01/2022 10:29 AM EDT Legal Sex Female 10:29 AM EDT Gender Identity Female 10/01/2022 10:29 AM EDT Sexual Orientation Straight 05/03/2023 4: 25 PM EDT COVID-19 Exposure Response Date Recorded In the last 10 days, have yo u been in contact with someone who was confirmed or suspected to have Coronavirus/COVID-19? No / Unsure 05/03/2023 1:29 PM EDT documented as of this encounter Miscellaneous Notes * Telephone Encounter - Shaniqua Lopez RN - 05/03/2023 12:15 PM EDT Triage call with [employer] Management Clerk [place] [id number] Pt reports episodes of dizziness since 04/26. Pt reports this comes and goes. Pt denies spinning or tilting with this dizziness but, describes it as a screeching sound hits both ears, will get visual flashes, chills and then vision will go black and Pt will faint. Pt reports has had one fall on Saturday 04/28 and Pt did hit head and had a screw skip load driver in hand. Pt had been trying to fix a mail box and went down . Pt reports her dog started whining and licking her face which woke her up, Pt was alone. Pt reports this dizziness comes when walking or standing . Other symptoms associated are chest pain and Pt has had diarrhea 3-4xday. Pt reports drinking adequate amts of liquid up to 8 glasses / day. Pt is advised to come to [facility] today to be seen by provider and Pt agrees with disposition. Insurance is verified as active prior to booking. Protocol Used: Dizziness (Adult) Protocol-Based Disposition: See in Office or Video Visit Today Positive Triage Question: * Moderate dizziness (e.g., interferes with normal activities) (Exception: dizziness caused by heatexposure, sudden standing, or poor fluid intake) * All higher-acuity triage questions were negative Care Advice Discussed: * Reasons To Call Back - After 2 hours of rest and fluids And still feeling dizzy. - Passes out (faints). - You become worse. * Telephone Encounter - Taylor Lloyd - 05/03/2023 11:34 AM EDT Symptom: Dizziness Outcome: Schedule an urgent appointment (within 4 hours) or talk to a nurse or provider soon Reason: Getting worse The caller accepted this outcome documented in this encounter Plan of Treatment Upcoming Encounters Date Type Department Care Team (Late st Contact Info) Description 06/23/2025 2:00 PM EDT Office Visit [facility] [address] [place] [address] Name, MD Geoff [address] [place] [address] documented as of this encounter Visit Diagnoses Not on filedocumented in this encounter Care Teams Flag Car Driver Relationship Specialty Start Date End Date Name, MD Geoff [address] [place] [address] PCP - General Family Medicine 07/16/22 documented as of this encounter
== END 2025-03-30 14:25 | disposition home or self-care (01) ==
LOC: HO.HGI 13:47
PROVIDERS: PCP Internal Medicine Geriatric Medicine; Visit Provider Nurse Practitioner Family
DX: K21.9 Gastro-esophageal reflux disease without esophagitis (principal); R14.0 Abdominal distension (gaseous); K58.1 Irritable bowel syndrome with constipation; K59.04 Chronic idiopathic constipation
CPT/HCPCS: 99214

== ENCOUNTER → 2025-03-30 14:42 | Outpatient (BNV) | payer MEDICAID, SELFPAY | PROVIDERS: PCP Internal Medicine Geriatric Medicine; Visit Provider Radiology Diagnostic Radiology | DX: M41.35 Thoracogenic scoliosis, thoracolumbar region (principal) | CPT/HCPCS: 71046 ==

== ENCOUNTER 2025-05-04 15:24 | Emergency (ER) | payer MEDICAID, SELFPAY ==
--- NOTE | 2025-05-04 | ECG_ITS ---
Test Reason : CHEST PAIN Blood Pressure : */* mmHG Vent. Rate : 73 BPM Atrial Rate : 73 BPM P-R Int : 142 ms QRS Dur : 74 ms QT Int : 372 ms P-R-T Axes : 79 78 73 degrees QTcB Int : 409 ms Normal sinus rhythm Normal ECG When compared with ECG of 14-May-2022 15:54, T wave inversion no longer evident in Lateral leads Referred By: Generic ED Physician Electronically Signed By: KAREN BARROW
--- NOTE | ~2025-05-04 | XR_ITS ---
EXAMINATION: XR CHEST CLINICAL INFORMATION: pain COMPARISON: July 30, 2025 TECHNIQUE: 2 views of the chest were obtained. FINDINGS: Lungs are clear and well aerated. There is no evidence of pleural effusion. Axilla is within normal limits. No mediastinal or hilar abnormality is evident. Metallic safety pin projects over the anterior central chest. XR/XR chest 2V IMPRESSION: No acute disease. Electronically signed by: Edy Darden MD 05/04/2025 04:24 PM EDT
[2025-05-04 15:47] VITALS: BP 105/60; PULSE 76; RESP 18; TEMP 36.5; O2SAT 100; BMI 17.6
--- NOTE | 2025-05-04 15:47 | ED.GENADULT ---
HPI - General Adult General Chief complaint: Chest Pain Stated complaint: Chest pain Time Seen by Provider: 05/04/25 21:24 History of Present Illness ED Provider: Caroline GUERRERO narrative: The patient is a generally healthy 49-year-old female who was on no medications. She is on no control or hormone replacement therapy. She says that she occasionally smokes socially but never by cigarettes. She says that for the last 3 weeks she has had pain in her left upper chest that is worse with movement or touching her chest. She denies any injury. No fever, sweats, chills. No cough or sputum. No abdominal pain, nausea, vomiting. she says that she has some chronic degree of occasional swelling of her ankles for which she wears compression stockings but she has no new pain or swelling in her legs or her calves. Related Data Home Medications ?Medication ?Instructions ?Recorded ?Confirmed fluoxetine 20 mg capsule (Prozac) 20 mg PO BID 12/26/20 08/20/24 Previous Rx's ?Medication ?Instructions ?Recorded ibuprofen 600 mg tablet 600 mg PO Q6H PRN pain #20 tabs 05/22/22 polyethylene glycol 3350 17 17 g PO DAILY #510 grams 08/06/23 gram/dose oral powder (Miralax) famotidine 20 mg tablet (Pepcid) 20 mg PO BEDTIME #30 tabs 12/23/24 linaclotide 290 mcg capsule 290 mcg PO QAM #30 caps 12/23/24 (Linzess) docusate sodium 100 mg capsule 100 mg PO BEDTIME #90 caps 01/11/25 esomeprazole magnesium 40 mg 40 mg PO DAILY #30 caps 01/11/25 capsule,delayed release cyclobenzaprine 5 mg tablet 5 mg PO BEDTIME PRN muscle spasm 03/30/25 #7 tabs simethicone 125 mg chewable tablet 125 mg PO BID-TID PRN abdominal 03/30/25 (Gas Relief (simethicone)) distention #90 tabs Allergies Allergy/AdvReac Type Severity Reaction Status Date / Time No Known Allergies Allergy Verified 05/04/25 15:50 Review of Systems Review of Systems: Yes all other systems are reviewed and are negative PMFSH Past Medical History Medical History Mass of finger of right hand Epidermal cyst of neck GERD (gastroesophageal reflux disease) Depression Anxiety Surgical History History of removal of cyst (~09/09/24) History of excision of pilonidal cyst History of esophagogastroduodenoscopy (EGD) Hx of tonsillectomy Family History Family History Father No problems noted. Mother No problems noted. Social History Social History Household Members: None Household Members Other:: alone Alcohol intake: current Alcohol intake frequency: does not drink Advance Directives: No Advance Directives Information Provided: No Current occupational status: disabled Physical Exam ED Vital Signs: Vital Signs - 24 hr 05/04/25 15:47 05/04/25 19:16 05/04/25 19:18 Temperature 97.7 F 98.0 F Pulse Rate 76 67 Respiratory Rate 18 16 Blood Pressure 105/60 96/64 96/66 Pulse Oximetry 100 96 Oxygen Delivery Method Room Air Room Air Room Air 05/04/25 19:18 05/04/25 20:35 05/04/25 21:48 Temperature 98 F 97.7 F 97.7 F Pulse Rate 67 65 65 Respiratory Rate 16 17 17 Blood Pressure 96/66 114/70 114/70 Pulse Oximetry 96 100 100 Oxygen Delivery Method Room Air Room Air Room Air BMI result Body Mass Index 17.6 Const Other: The patient is a thin 49-year-old woman who was awake and alert. She does not seem in acute distress. Orientation/consciousness: patient oriented x3 HENMT Other: Face is symmetrical, mucous membranes moist Eyes General: appearance normal, both eyes and all related structures Neck Neck: Yes normal visual inspection, Yes full ROM and Yes no JVD Chest Other: There is chest wall tenderness to the left upper chest wall. Palpation seems to reproduce her pain. Resp Effort & Inspection: normal respiratory effort Auscultation: clear to auscultation bilaterally Cardio Rate: regular rate Rhythm: regular rhythm Heart sounds: S1 normal heart sound present and S2 normal heart sound present Skin General skin exam: no rashes or lesions noted Neuro General: patient oriented x3, tone normal, moves all extremities, no focal motor deficits and CN's II-XI intact bilaterally Extrem Other: No peripheral edema, no calf swelling or tenderness, no asymmetry Course Course Course Narrative: RME, this is a rapid medical exam performed by Ralph Miller please refer to primary provider for complete H&P- 41-year-old female presents for evaluation of left-sided chest pain. She is a smoker. She initially had some pain in her left breast that is now midsternal prompting her visit today. Plan for cardiac workup Medical Decision Making Medical Decision Making MDM Narrative: The patient is a 49-year-old woman who is generally healthy and on no medications. She presents for evaluation of chest pain and shortness of breath with the pain being primarily in the left upper chest. She is PERC negative. She does not look unwell. She has reproducible pain with palpation of her left upper chest. I think she has chest wall pain. She was reassured. She is advised to use ibuprofen and acetaminophen. She should follow up with the regular doctor. She should return to the emergency room if worse. Lab Data 05/04/25 17:41 05/04/25 17:41 Labs: Lab Results 05/04/25 Range/Units 17:41 WBC 4.4 L (4.8-10.8) X10*3/uL RBC 4.39 (4.20-5.50) X10*6/uL Hgb 13.4 (12.0-16.0) g/dl Hct 38.8 (37.0-47.0) % MCV 88.4 (80.0-98.0) fL MCH 30.5 (27.0-33.0) pg MCHC 34.5 (31.0-35.0) g/dl RDW 13.1 (11.0-16.0) % Plt Count 270 (160-400) X10*3/uL MPV 8.8 L (9.4-12.3) fL Immature Gran % (Auto) 0.0 (0.0-0.4) % Neut % (Auto) 38.1 L (45-73) % Lymph % (Auto) 52.1 H (20-40) % [place] % (Auto) 5.0 (2-11) % Eos % (Auto) 3.0 (0-4) % Baso % (Auto) 1.8 (0-2) % Lymph # (Auto) 2.3 (1.2-4.9) X10*3/uL [place] # (Auto) 0.2 (0.1-1.2) X10*3/uL Eos # (Auto) 0.1 (0.0-0.4) X10*3/uL Baso # (Auto) 0.1 (0.0-0.2) X10*3/uL Abs Immat Gran (auto) 0.00 (0.00-0.03) X10*3/uL Absolute Neuts (auto) 1.7 L (2.0-8.3) x10*3/uL Absolute Nucleated RBC 0.000 (0.0-0.012) X10*3/uL Nucleated RBC % (auto) 0.0 (0.0-0.2) /100WBC Sodium 141 (135-145) mmol/L Potassium 4.5 (3.3-5.1) mmol/L Chloride 106 (96-108) mmol/L Carbon Dioxide 30 H (22-29) mmol/L Anion Gap 10 L (12-20) BUN 9 (9-16) mg/dL Creatinine 0.75 (0.5-1.4) mg/dL Estim Creat Clear Calc 73.7 Estimated GFR > 60 Random Glucose 95 (60-115) mg/dL Calcium 9.8 (8.4-10.2) mg/dL Magnesium 2.0 (1.6-2.6) mg/dL Total Bilirubin 0.6 (0.0-1.0) mg/dL AST 23 (5-31) U/L ALT 16 (0-31) U/L Alkaline Phosphatase 70 (39-117) U/L Troponin I High Sens < 2.7 (<3.5-17.0) ng/L Total Protein 7.0 (6.5-8.0) g/dL Albumin 4.3 (3.5-5.0) g/dL Lipase 36 (8-78) U/L Independent Interpretation I performed an independent interpretation of an: EKG Interpretation: EKG at 15:39 shows normal sinus rhythm at 73 beats per minute. It is an unremarkable EKG. Discharge Plan Discharge Clinical Impression: Chest wall pain Patient Disposition: Home, Self-Care Additional Instructions: your testing in the emergency room today is very reassuring. I think the pain is most likely coming from your chest wall. This would include the ribs or the muscles or the cartilage of your chest. I do not think the pain is coming either from your heart or your lungs. You may use ibuprofen and acetaminophen as needed for pain. Please follow up with your regular doctor to discuss these symptoms further if they continue. If at any point you feel significantly worse please return to the emergency room for further evaluation. Prescriptions: No Action polyethylene glycol 3350 [Miralax] 17 gram/dose powder 17 g PO DAILY Qty: 510 2RF docusate sodium 100 mg capsule 100 mg PO BEDTIME Qty: 90 0RF esomeprazole magnesium 40 mg capsule,delayed release(DR/EC) 40 mg PO DAILY Qty: 30 0RF ibuprofen 600 mg tablet 600 mg PO Q6H PRN (Reason: pain) Qty: 20 0RF fluoxetine [Prozac] 20 mg capsule 20 mg PO BID Rx Instructions: administer in the morning and at noon/midday simethicone [Gas Relief (simethicone)] 125 mg tablet,chewable 125 mg PO BID-TID PRN (Reason: abdominal distention) Qty: 90 4RF cyclobenzaprine 5 mg tablet 5 mg PO BEDTIME PRN (Reason: muscle spasm) Qty: 7 0RF Linzess 290 mcg capsule 290 mcg PO QAM Qty: 30 4RF famotidine [Pepcid] 20 mg tablet 20 mg PO BEDTIME Qty: 30 11RF Referrals: Name,MD Geoff [Primary Care Provider] - ( chest wall pain) Interventions: ED Discharge Assessment Last Done: 05/04/25 21:48 Discharge Date/Time: 05/04/25 21:50 Print Language: Haitian
[2025-05-04 17:46] LABS: MANUAL DIFF FLAG NO
[2025-05-04 17:48] LABS: Basophils Absolute Auto 0.1 X10*3/uL (0.0-0.2); Basophils Percent Auto 1.8 % (0-2); Eosinophils Absolute Auto 0.1 X10*3/uL (0.0-0.4); Hematocrit 38.8 % (37.0-47.0); Hemoglobin 13.4 g/dl (12.0-16.0); Lymphocytes Absolute Auto 2.3 X10*3/uL (1.2-4.9); Lymphocytes Percent Auto 52.1 % (20-40); Mean Corpuscular HGB Conc 34.5 g/dl (31.0-35.0); Mean Corpuscular Hemoglobin 30.5 pg (27.0-33.0); Mean Corpuscular Volume 88.4 fL (80.0-98.0); Mean Platelet Volume 8.8 fL (9.4-12.3); Monocytes Absolute Auto 0.2 X10*3/uL (0.1-1.2); Neutrophils Absolute Auto 1.7 x10*3/uL (2.0-8.3); Neutrophils Percent Auto 38.1 % (45-73); Platelet Count 270 X10*3/uL (160-400); Red Blood Count 4.39 X10*6/uL (4.20-5.50); Red Cell Distribution Width 13.1 % (11.0-16.0); White Blood Count 4.4 X10*3/uL (4.8-10.8)
[2025-05-04 18:01] LABS: Alanine Aminotransferase 16 U/L (0-31); Albumin Level 4.3 g/dL (3.5-5.0); Alkaline Phosphatase 70 U/L (39-117); Anion Gap 10 (12-20); Aspartate Amino Transferase 23 U/L (5-31); Bilirubin Total 0.6 mg/dL (0.0-1.0); Blood Urea Nitrogen 9 mg/dL (9-16); Calcium 9.8 mg/dL (8.4-10.2); Carbon Dioxide 30 mmol/L (22-29); Chloride 106 mmol/L (96-108); Creatinine Clr Calc Pharmacy 73.7; Estimated Glomerular Filt Rate > 60; Glucose Random 95 mg/dL (60-115); Lipase 36 U/L (8-78); Potassium 4.5 mmol/L (3.3-5.1); Sodium 141 mmol/L (135-145)
[2025-05-04 18:20] LABS: Troponin-I High Sensitivity < 2.7 ng/L (<3.5-17.0)
[2025-05-04 19:16] VITALS: BP 96/64; PULSE 67; RESP 16; TEMP 36.7; O2SAT 96
[2025-05-04 19:18] VITALS: BP 96/66; PULSE 67; RESP 16; TEMP 36.6; O2SAT 96
[2025-05-04 20:35] VITALS: BP 114/70; PULSE 65; RESP 17; TEMP 36.5; O2SAT 100
[2025-05-04 21:48] VITALS: BP 114/70; PULSE 65; RESP 17; TEMP 36.5; O2SAT 100
== END 2025-05-04 21:50 | disposition home or self-care (01) ==
LOC: HO.ED 21:48
PROVIDERS: Physician Assistant; Emergency Provider Emergency Medicine; PCP Internal Medicine Geriatric Medicine
DX: R07.89 Other chest pain (principal)
CPT/HCPCS: 36415; 71046; 80053; 83690; 83735; 84484; 85025; 93005; 99283; 99284

== ENCOUNTER → 2025-05-04 15:39 | Outpatient (BNV) | payer MEDICAID, SELFPAY | PROVIDERS: Emergency Provider Emergency Medicine; PCP Internal Medicine Geriatric Medicine; Visit Provider Internal Medicine | DX: R07.9 Chest pain, unspecified (principal) | CPT/HCPCS: 93010 ==

== ENCOUNTER → 2025-05-04 15:48 | Outpatient (BNV) | payer MEDICAID, SELFPAY | PROVIDERS: PCP Internal Medicine Geriatric Medicine; Visit Provider Radiology Diagnostic Radiology | DX: R07.9 Chest pain, unspecified (principal) | CPT/HCPCS: 71046 ==

== ENCOUNTER 2025-11-03 14:32 | Outpatient (AMB) | payer MEDICAID, SELFPAY ==
--- NOTE | 2025-11-03 14:48 | MHC.OFFVIS ---
Vital Signs 11/03/25 15:10 Height 5 ft 7 in Weight 110 lb BMI 17.2 BP 100/58 L Blood Pressure Location Rt brachial Position Sitting Pulse 70 Pulse Source Pulse Oximeter Pulse Oximetry (%) 100 Oxygen Delivery Method Room Air Intake Visit Reasons: follow up reflux Intake Note: ESTABLISHED PATIENT - mgmt of GERD + fecal abn. Imaging done. CC; C/O GERD persistence despite current medication. She confirms she is taking her current Rx and brought them with her, however; she finds they are feeling slightly less effective than previously. Senior Staff Specialized Employment Required: Yes Senior Staff Specialized Employment Services: Senior Staff Specialized Employment Offered & Declined Accompanied by: Self / Same As Patient Allergies No Known Allergies Allergy (Verified 11/03/25 14:48) HPI HPI follow up reflux: Details: LAST VISIT GERD (gastroesophageal reflux disease) Postprandial abdominal bloating IBS (irritable bowel syndrome) Chronic idiopathic constipation Plan Patient will continue taking Nexium and famotidine. Avoid dietary triggers and later snacking. Continue simethicone. Patient reports rib and left side of her chest pain during inspiration. No cough, no fever. Patient denies any injury. Patient is requesting muscle relaxant, script for cyclobenzaprine sent. Will order chest x-ray. Patient was encouraged to go to ED if she will have increased pain or shortness of breath. She you may need a CT scan to rule out PE. Patient however had normal exam. Patient will follow-up in 3 months, sooner on as needed basis. She is agreeable to this plan and verbalizes understanding of instructions. She was given the opportunity to ask questions and all questions answered. ? Thank you for allowing me to participate in her care Orders XR chest 2V Today R06.00 Refilled simethicone (Gas Relief (simethicone)) 125 mg PO BID-TID PRN 90 tabs 4RF abdominal distention cyclobenzaprine 5 mg PO BEDTIME PRN 7 tabs 0RF muscle spasm TODAY'S VISIT Patient is here today for follow-up. Patient reports that she continues to have severe bloating. Unable to pass gas sometimes. She is taking Linzess 290 mcg every day. Patient reports that she has been very careful, following low FODMAP diet. Patient also reports that she is unable to move her bowels despite taking the Linzess. Patient denies dyspepsia, dysphagia or odynophagia. Patient tried [id number]-rtfknsw enzymes and reports that she had some release. Patient tried the brand Fodzyme which is a powder that she sprinkled on her food. Patient denies melena, hematochezia, unintentional weight loss or ribbon like stools. Patient otherwise reports that she is feeling well. Patient reports that she drinking fluids mainly water. [facility] Medical History Mass of finger of right hand Epidermal cyst of neck GERD (gastroesophageal reflux disease) Depression Anxiety Surgical History History of removal of cyst (~09/09/24) History of excision of pilonidal cyst History of esophagogastroduodenoscopy (EGD) Hx of tonsillectomy Family History Father No problems noted. Mother No problems noted. Social History Household Members: None Household Members Other:: alone Alcohol intake: current Alcohol intake frequency: does not drink Current occupational status: disabled Review of Systems Const Denies weight gain and Denies weight loss ENT Reports no additional complaints, Denies dysphagia and Denies odynophagia Card Reports no additional complaints Resp Details: Pain with inspiration Reports no additional complaints GI Denies abdominal pain, Denies belching, Denies melena, Reports bloating (Occasional), Denies change in bowel habits, Reports constipation, Denies dysphagia, Denies excessive flatus, Denies dyspepsia, Denies heartburn, Denies diarrhea, Denies loose stools, Reports nausea, Denies odynophagia and Denies vomiting Reports no additional complaints Musc Reports no additional complaints Neuro Reports no additional complaints Psych Reports no additional complaints Endo Reports no additional complaints Physical Exam Vital Signs: Last Vital Signs Pulse 70 11/03/25 15:10 BP 100/58 L 11/03/25 15:10 Pulse Ox 100 11/03/25 15:10 Oxygen Delivery Method Room Air 11/03/25 15:10 BMI result Body Mass Index 17.2 Const General: healthy appearing, no acute distress and well developed Nutritional Appearance: well nourished Orientation/consciousness: patient oriented x3 Resp Effort & Inspection: normal respiratory effort, able to speak in complete sentences, no tracheal deviation and symmetric chest movement Auscultation: clear to auscultation bilaterally Cardio Rate: regular rate GI Inspection: Yes normal to inspection and No distended Palpation (GI): Soft to palpation, not firm, nontender and No hepatosplenomegaly present Auscultation: normal bowel sounds General: Yes no CVA tenderness Back/Spine/Pelvis Back: no CVA tenderness Skin General skin exam: elasticity normal, turgor normal and dry skin Neuro General: patient oriented x3 Psych Appearance: grossly normal Mental Status: mental status grossly normal Assessment & Plan Assessment & Plan (1) Dysphagia: Code(s): R13.10 - Dysphagia, unspecified Category: Medical Qualifiers: Dysphagia type: esophageal phase Qualified Code(s): R13.19 - Other dysphagia (2) Acid reflux: Code(s): K21.9 - Gastro-esophageal reflux disease without esophagitis Category: Medical Qualifiers: Esophagitis presence: esophagitis presence not specified Qualified Code(s): K21.9 - Gastro-esophageal reflux disease without esophagitis (3) Chronic idiopathic constipation: Code(s): K59.04 - Chronic idiopathic constipation (4) Irritable bowel syndrome: Code(s): K58.9 - Irritable bowel syndrome, unspecified Qualifiers: Irritable bowel syndrome type: with constipation Qualified Code(s): K58.1 - Irritable bowel syndrome with constipation Plan Patient will try to take Dulcolax at bedtime. Increase fluid intake and activity to promote bowel motility. Patient will try Creon. If unable to get a PA she will try digestive enzymes [id number]. Medications: New miduws-dscukwlw-rfzfnra (pork) 24,000-76,000 -120,000 unit (Creon) administer with meals and/or snacks 1 cap PO QID 120 caps 2RF K58.9 - Irritable bowel syndrome, unspecified bisacodyl (Dulcolax (bisacodyl)) 10 mg (2 x 5 mg) PO BEDTIME 180 tabs 4RF Coding Level of Care Code Est Pt Level 4 (44064) Add On Problem Visit Only Diagnoses Esophageal dysphagia R13.19 Dysphagia type: esophageal phase Gastroesophageal reflux disease, unspecified whether esophagitis present K21.9 Esophagitis presence: esophagitis presence not specified Chronic idiopathic constipation K59.04 Irritable bowel syndrome with constipation K58.1 Irritable bowel syndrome type: with constipation Time Spent (min) 35 Comment 25 minutes spent with patient and additional 10 minutes spent reviewing her records
[2025-11-03 15:10] VITALS: BP 100/58; PULSE 70; O2SAT 100; BMI 17.2
--- OUTSIDE RECORDS SUMMARY | 2025-11-03 17:29 | XMS_ITS | Encounter Summary ---
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 Never 10/16/2019 How many drinks containing a lcohol do you have on a typical day when you are drinking? Not asked How often do you have six or more drinks on one occasion? Not asked Sex Assigned at Date Recorded Not on file Job Start Date Occupation Industry Not on file Not on file Not on file COVID-19 Exposure Response Date Recorded In the last 10 days, have yo u been in contact with someone who was confirmed or suspected to have Coronavirus/COVID-19? No / Unsure 06/18/2022 12:38 PM EDT documented as of this encounter Nursing Notes * Demi Marx - 06/20/2022 10:04 AM EDT AUTHORIZATION TO OBTAIN RECORDS FAXED TO [facility]. 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
--- OUTSIDE RECORDS SUMMARY | 2025-11-03 17:29 | XMS_ITS | Encounter Summary ---
Author Organization [employer] Address [address] [facility] [address] [place] [address] Care Team Providers Care Owner Oral Surgeon Name Role Phone Name, Geoff DONALDSON Primary Care Provider [phone] Encounter Details Date Type Department Care Team ([facility] Contact Info) Description 03/01/2025 Orders Only [facility] MED & PEDS [address] [place], [place] [id number] Katty Hong Social History Tobacco Use Types [...] PM EDT documented as of this encounter Functional Status * Over the past 2 weeks, how often have you been bothered by any of the following problems? Question Answer Date of Assessment Author Patient Health Questionnaire -2 Score 2 03/03/2025 3:53 PM EDT Yvrose Murphy MA * Little interest or pleasure in doing things Answer Date of Assessment Author Several days 03/03/2025 3:53 PM EDT Janelle Murphy MA * Feeling down, depressed, or hopeless Answer Date of Assessment Author Several days 03/03/2025 3:53 PM CARMENT Janelle Murphy MA * Trouble falling or staying asleep, or sleeping too much Answer Date of Assessment Author Nearly every day 03/03/2025 3:53 PM CARMENT Janelle Murphy MA * Feeling tired or having little energy Answer Date of Assessment Author Nearly every day 03/03/2025 3:53 PM CARMENT Janelle Murphy MA * Poor appetite or overeating Answer Date of Assessment Author More than half the days 03/03/2025 3:53 PM EDT Janelle Barros MA * Feeling bad about yourself - or that you are a failure or have let yourself or your family down Answer Date of Assessment Author Nearly every day 03/03/2025 3:53 PM CARMENT Janelle Murphy MA * Trouble concentrating on things, such as reading the newspaper or watching television Answer Date of Assessment Author Several days 03/03/2025 3:53 PM EDT Janelle Murphy MA * Moving or speaking so slowly that other people could have noticed? Or the opposite - being so fidgety or restless that you have been moving around a lot more than usual. Answer Date of Assessment Author Several days 03/03/2025 3:53 PM EDT Janelle Murphy MA * Thoughts that you would be better off or hurting yourself in some way Answer Date of Assessment Author Several days 03/03/2025 3:53 PM EDT Janelle Murphy MA * Patient Health Questionnaire-9 Score Answer Date of Assessment Author 16 03/03/2025 3:53 PM EDT Janelle Murphy MA * How difficult have these problems made it for you to do your work, take care of things at home, or get along with other people? Answer Date of Assessment Author Somewhat difficult 03/03/2025 3:53 PM EDT Janelle Gresham MA * Over the last 2 weeks, how often have you been bothered by any of the following problems? Question Answer Date of Assessment Author Feeling nervous, anxious, or on edge 3 03/03/2025 3:54 PM EDT Yvrose Murphy MA Not being able to stop or control worrying 3 03/03/2025 3:54 PM CARMENT Yvrose Murphy MA Worrying too much about different things 3 03/03/2025 3:54 PM CARMENT Yvrose Murphy MA Trouble relaxing 3 03/03/2025 3:54 PM EDT Janelle Barros MA Being so restless that it is hard to sit still 2 03/03/2025 3:54 PM CARMENT Yvrose Murphy MA Becoming easily annoyed or irritable 2 03/03/2025 3:54 PM CARMENT Yvrose Murphy MA Feeling afraid as if somethi ng awful might happen 2 03/03/2025 3:54 PM CARMENT Yvrose Murphy MA FERCHO-7 Total Score 18 03/03/2025 3:54 PM EDT Janelle Murphy MA documented as of this encounter Plan of Treatment Upcoming Encounters Date Type Department Care Team (Late st Contact Info) Description 01/24/2026 11:00 AM EST Office Visit [facility] MEDICINE [address] [place] [address] NameGeoff MD [address] [place] [address] documented as of this encounter Procedures Procedure Name Priority Date/Time Associated Diagnosis Comments XR CHEST 2 VIEWS Routine 03/30/2025 2:42 PM EDT HM PAP/HPV Routine 02/02/2025 12:00 AM EST documented in this encounter Results * XR Chest 2 Views (03/30/2025 2:42 PM EDT) Anatomical Region Laterality Modality Chest Radiographic Funmilayo ging 03/30/2025 2:42 PM EDT Narrative 03/31/2025 3:22 PM EDT [address] [address] XRay Report Signed Patient: Lizzy Smiley MR#: [id number] : 1975 Acct:[id number] Age/Sex: 49 / F ADM Date: 03/30/25 Loc: HO.XRAY Attending Dr: Mitali ENRIQUEZ-KEREN Ordering Physician: Mitali Street Date of Service: 03/30/25 Procedure(s): XR chest 2V Accession Number(s): [id number] cc: Geoff Slaughter MD; Mitali Street-KEREN EXAMINATION: XR CHEST CLINICAL INFORMATION: R06.00 - Dyspnea, unspecified COMPARISON: May 14, 2022. TECHNIQUE: 2 views of the chest were obtained. FINDINGS: No consolidation, pleural effusion or pneumothorax. Cardiomediastinal silhouette size is normal. S-shaped curvature of the thoracolumbar spine. XR/XR chest 2V IMPRESSION: No acute airspace disease. Scoliosis, thoracolumbar spine. Electronically signed by: Mayito Bucio MD 03/31/2025 03:20 PM EDT RP Dictated By: Mayito Lucero MD Signed By: <Electronically signed by Mayito Mederos MD in OV> 03/31/25 1520 DD/ 1442 TD/TT: 03/30/25 1455 Artisan Plasterer: Procedure Note Donotuseinterpreter, Image - 03/31/[address] [address] XRay Report Signed Patient: Brent GuzmanDianaMR#: [id number] : 1975Acct:[id number] Age/Sex: 49 / FADM Date: 03/30/25 Loc: HOVikkiXRAY Attending Dr: Mitali Street ASSISTANT ACTIVITIES DIRECTOR-KEREN Ordering Physician: Mitali Street ASSISTANT ACTIVITIES DIRECTOR-KEREN Date of Service: 03/30/25 Procedure(s): XR chest 2V Accession Number(s): [id number] cc: Name,Geoff DONALDSON; Mitali Street ASSISTANT ACTIVITIES DIRECTOR-BC EXAMINATION: XR CHEST CLINICAL INFORMATION: R06.00 - Dyspnea, unspecified COMPARISON: May 14, 2022. TECHNIQUE: 2 views of the chest were obtained. FINDINGS: No consolidation, pleural effusion or pneumothorax. Cardiomediastinal silhouette size is normal. S-shaped curvature of the thoracolumbar spine. XR/XR chest 2V IMPRESSION: No acute airspace disease. Scoliosis, thoracolumbar spine. Electronically signed by: Mayito Bucio MD 03/31/2025 03:20 PM EDT RP Dictated By: Mayito Lucero MD Signed By: <Electronically signed by Mayito Mederos MDin OV> 03/31/25 1520 DD/ 1442 TD/TT: 03/30/25 1455 Artisan Plasterer: [facility] External Provider IMG XR PROCEDURES Edited Result - Final * HM PAP/HPV (02/02/2025 12:00 AM EST) Pap Smear 1. NILM 1. NILM [facility] HPV Not Detected Undetected, Indeterminat e, Quantitative , Not Detected [facility] Narrative [facility] - 02/02/2025 12:00 AM EST See care everywhere lab 02/02/2025 us Historical Provider HEALTH MAINTENANCE Edited Result - Final [facility] documented in this encounter Visit Diagnoses Not on filedocumented in this encounter Care Teams Owner Oral Surgeon Relationship Specialty Start Date End Date Name, MD Geoff [address] [place] [address] PCP - General Family Medicine 07/16/22 documented as of this encounter
--- OUTSIDE RECORDS SUMMARY | 2025-11-03 17:29 | XMS_ITS | Encounter Summary ---
Author Organization [facility] Prior to 10/02/2024 Address [address] [place] [address] Care Team Providers Care Audit Machine Operator Name Role Phone Name, Geoff DONALDSON Primary Care Provider Unavailabl e Reason for Visit * Reason Comments E-prescribe Rx Request Encounter Details Date Type Department Care Team Description 07/26/2023 Refill OBGYN - [place] [address] [place] [address] Colten Galo DO E-prescribe Rx Request Social History Tobacco Use Types Packs/Day Years [...] file Not on file Not on file documented as of this encounter Miscellaneous Notes * Telephone Encounter - Tessie Gil CNM - 07/30/2023 9:52 AM EDT Will discuss this at her up coming annual exam * Telephone Encounter - Jennifer Mauricio - 07/26/2023 2:35 PM EDT WHEN WAS THE PATIENTS LAST ANNUAL TRAFFIC RECORDER EXAM? 02/14/21 Does patient have an upcoming appointment? Yes 08/01/23 (THE MEDICATION REQUESTED IS ON THE MED LIST ABOVE) Did you check the Pharmacy information above?: YES Indicate how soon the patient needs the script: BY THE END OF THE DAY Patient would like script to be: E-PRESCRIBED/FAXED TO PHARMACY Is the doctor here today?: NO Can the message wait until the doctor returns?: NO Has the patient been told that the prescription will not be filled until the end of the day? NO Payor[place] / Plan: MEDICAID PCC / Product Type: MEDICAID [id number] documented in this encounter Plan of Treatment Not on file documented as of this encounter Visit Diagnoses Not on filedocumented in this encounter Care Teams Audit Machine Operator Relationship Specialty Start Date End Date Name, MD Geoff PCP - General Internal Medicine 12/19/16 documented as of this encounter
--- OUTSIDE RECORDS SUMMARY | 2025-11-03 17:29 | XMS_ITS | Encounter Summary ---
Author Organization [facility] Prior to 10/02/2024 Address [address] [place] [address] Care Team Providers Care Heavy Forger Name Role Phone Name, Geoff DONALDSON Primary Care Provider Unavailabl e Reason for Visit * Reason Onset Date Comments refill request 11/23/2022 Encounter Details Date Type Department Care Team Description 11/23/2022 Refill OBGYN - [place] [address] [place] [id number] Colten Galo DO refill request Social History Tobacco Use Types Packs/Day Years [...] encounter Miscellaneous Notes * Telephone Encounter - Kristin Sky R.N. - 11/23/2022 4:12 PM EST Return call to pharmacy; states patient states still actively using hibiclens 4% external liquid for weekly vaginal wash, as it does help her discomfort. Patient has appt scheduled for 03/22/23 wJose Manuel Schafer CNM. Last Prescribed by Dr. Padgett. Advised would send request to provider in office with enough to get to [facility]. Advised to encourage patient to not cancel this appointment, or may not be r moise. She will let patient know. Rx pended no refills to get to [facility] with Maurice Schafer CNM. Last prescribed by Dr. Padgett * Telephone Encounter - Daria Jack - 11/23/2022 1:44 PM EST WHEN WAS THE PATIENTS LAST ANNUAL LOGGING CONTRACTOR EXAM? 02/19 Does patient have an upcoming appointment? Yes 03/23 (THE MEDICATION REQUESTED IS ON THE MED LIST ABOVE) Did you check the Pharmacy information above?: YES Indicate how soon the patient needs the script: BY THE END OF THE DAY Patient would like script to be: E-PRESCRIBED/FAXED TO PHARMACY Is the doctor here today?: YES Can the message wait until the doctor returns?: YES Has the patient been told that the prescription will not be filled until the end of the day? no Pay[place] / Plan: MEDICAID PCC / Product Type: MEDICAID [id number] documented in this encounter Plan of Treatment Not on file documented as of this encounter Visit Diagnoses Not on filedocumented in this encounter Care Teams Heavy Forger Relationship Specialty Start Date End Date Name, MD Geoff PCP - General Internal Medicine 12/19/16 documented as of this encounter
--- OUTSIDE RECORDS SUMMARY | 2025-11-03 17:29 | XMS_ITS | Clinical Summary ---
Author Organization [employer] Address [address] [place] [address] [address] [place] [address] Care Team Providers Care Direct Response Consultant Name Role Phone Name, Geoff DONALDSON Primary Care Provider [phone] Allergies No known active allergies Medications traZODone [...] day 10 tablet 2 02/27/20 23 Active baclofen (Lioresal) 10 MG tablet Take [...] day. 30 tablet 3 08/04/20 24 Active QUEtiapine (SEROquel) 50 MG tablet 07/30/20 24 Active perphenazine 4 MG tablet TAKE 1 TABLET BY MOUTH TWICE DAILY WITH 8 MG Active esomeprazole (NexIUM) [address] capsule Take 1 capsule (40 mg) by mouth before breakfast. Do not open capsule. 30 capsule 3 03/03/20 25 Active gabapentin (Neurontin) 800 MG tabletIndicati ons:Chronic pain syndrome TAKE 1 TABLET BY MOUTH TWICE DAILY 60 tablet 10/18/20 25 Active sodium chloride ([place]) 0.65 % nasal spray Administer 1 spray into each nostril if needed for congestion. 15 mL 11 10/20/20 25 026 Active Deutetrabenazi ne ER (Austedo XR) 42 MG tablet sustained-rele ase 24 hour Take by mouth. Active Austedo XR 24 MG tablet sustained-rele ase 24 hour Take 1 tablet by mouth Once per day. 02/11/20 25 025 Discontinued(Do se adjustment) gabapentin (Neurontin) 800 MG tabletIndicati ons:Chronic pain syndrome TAKE 1 TABLET BY MOUTH TWICE DAILY 60 tablet 09/15/20 25 025 Discontinued Active Problems Problem Noted Date Diagnosed Date [...] Encounters Date Type Department Care Team Description 10/20/2025 3:30 PM EST Office Visit [facility] MEDIC[facility] [address] [place] [address] Geoff Slaughter MD Tiredness (Primary Dx); Screening for diabetes mellitus; Screening for cholesterol level; Bloating symptom; Polypharmacy; Encounter for immunization 10/20/2025 Travel 10/19/2025 Telephone [facility] [address] [place] [address] Janelle Murphy MA chart prep 10/17/2025 Refill [facility] [address] [place] [address] Kim Brown NP Chronic pain syndrome 09/14/2025 Refill [facility] [address] [place] [address] Geoff Slaughter MD Chronic pain syndrome 08/12/2025 Refill [facility] [address] [place] [address] Geoff Slaughter MD Chronic pain syndrome from Last 3 Months Immunizations Immunization Administration Dates Next Due Influenza injectable quadriv alent IIV4 with preservative 09/22/2018 Influenza injectable quadriv alent preservative free 01/09/2021,10/20/2019,09/20/2018,2015,07/20/2015 Influenza, Split (incl. julián fied surface antigen) 09/28/2013 Influenza, seasonal, injecta ble, preservative free 10/20/2025,11/02/2024,08/02/2017 Estela SARS-CoV-2 Vaccination 02/27/2021 Pfizer Covid-19 Vaccine 12+ 10/20/2025, Tdap 11/13/2016 Social History Tobacco Use Types [...] Sign Reading Time Taken Comments Blood Pressure 115/86 10/20/2025 4:07 PM EST Pulse 67 10/20/2025 4:07 PM EST Temperature 36.2 C (97.1 F) 10/20/2025 4:07 PM EST Respiratory Rate 12 10/20/2025 4:07 PM EST Oxygen Saturation 99% 10/20/2025 4:07 PM EST Inhaled Oxygen Concentration - - Weight 50.6 kg (111 lb 9.6 oz) 10/20/2025 4:07 P M EST Height 170.2 cm (5' 7 ) 10/20/2025 4:07 PM EST Body Mass Index 17.48 10/20/2025 4:07 PM EST Plan of Treatment Upcoming Encounters Date Type Department Care Team (Late st Contact Info) Description 01/24/2026 11:00 AM EST Office Visit [facility] [address] [place] [address] Name, MD Geoff [address] [place] [address] Health Maintenance Due Date Last Done Comments CT Colonography 1975 Colonoscopy 1975 HIV Screening 1975 Lipid Panel 1975 Sigmoidoscopy 1975 Family Planning (PISQ) 1991 Hepatitis B Vaccines (1 of 3 - 19+ 3-dose series) 1995 Pneumococcal Vaccine: Pediatrics (0 to 5 Years) and At-Risk Patients (6 to 49) Years (1 of 2 - PCV) 1995 FIT 05/08/2024 05/08/2023 Depression Monitoring 09/02/2025 03/03/2025, 025 SDOH Screening 11/02/2025 11/02/2024 Disability Screening 03/03/2026 03/03/2025 FOBT 03/25/2026 03/25/2025, 05/08/2023 Zoster Vaccines (1 of 2) 2026 Alcohol/Substance Use Screening 10/20/2026 10/20/2025 Tobacco Screening 10/20/2026 10/20/2025 DTaP/Tdap/Td Vaccines (2 - Td or Tdap) 11/13/2026 11/13/2016 Mammogram 02/04/2027 02/04/2025, 03/0 05/2025, 02/04/2025, Additional history exists Colorectal Cancer Screening 03/25/2028 FIT DNA/Cologuard 03/25/2028 03/25/2025 Cervical Cancer Screening 02/02/2030 HPV/Cotest 02/02/2030 02/02/2025, 02/14/2021 Pap Smear 02/02/2030 02/02/2025, 02/14/2021 RSV Patients and Patients Aged 60 years or older (1 - 1-dose 75+ series) 2051 Hepatitis C Screening Completed 05/03/2023 COVID-19 Vaccine Completed 10/20/2025, 01/2024, 10/19/2021, Additional history exists Influenza Vaccine Completed 10/20/2025, , 01/09/2021, Additional history exists HIB Vaccines Aged Out [...] Procedure Name Priority Date/Time Associated Diagnosis Comments LAB COLOGUARD COLON CANCER SCREEN Routine 03/25/2025 5:33 PM EDT Screening for colon cancer HM MAMMOGRAPHY Routine 02/04/2025 3:18 PM EST HM PAP/HPV Routine 02/02/2025 12:00 AM EST FECAL GLOBIN BY IMMUNOCHEMISTRY Routine 05/08/2023 12:00 AM EDT HEPATITIS PANEL, GENERAL Routine 05/03/2023 2:52 PM EDT Dizziness and giddiness from Last 3 Months or Most Recently Relevant to Health Maintenance Results * Cologuard?? colon cancer screening (03/25/2025 5:33 PM EDT) Cologuard Result Negative Negative 04/01/20 8:39 AM EDT [facility] (CLIA #:[id number]) Comment: The Cologuard (TM) test was performed on this specimen. NEGATIVE TEST RESULT. A negative Cologuard result indicates a low likelihood that a colorectal cancer (CRC) or advanced adenoma (adenomatous polyps with more advanced pre-malignant features) is present. The chance that a person with a negative Cologuard test has a colorectal cancer is less than 1 in 1500 (negative predictive value >99.9%) or has an advanced adenoma is less than 5.3% (negative predictive value 94.7%). These data are based on a prospective cross-sectional study of 10,000 individuals at average risk for colorectal cancer who were screened with both Cologuard and colonoscopy. (Serge York al, N Engl J Med 2014;370(14):1286- 1297) The normal value (reference range) for this assay is negative. COLOGUARD RE-SCREENING RECOMMENDATION: Periodic colorectal cancer screening is an important part of preventive healthcare for asymptomatic individuals at average risk for colorectal cancer. Following a negative Cologuard result, the [place] [employer] Society and U.S. Multi-Society Task Force screening guidelines recommend a Cologuard re-screening interval of 3 years. References: [place] [employer] Guideline for Colorectal Cancer Screening: https://www.cancer.org/cancer/talbz-qgrwse-iyzcpl/sedlzdkis-mrsftimmy-svzihvq/ac s-rec ommendations.html.; Laith MCKEON, Neal PHILIP, Hank StephensK, Colorectal Cancer Screening: Recommendations for Physicians and Patients from the U.S. Multi-Society Task Force on Colorectal Cancer Screening , Am J Gastroenterology 2017; 112:1261-7480. TEST DESCRIPTION: Composite algorithmic analysis of stool DNA-biomarkers with hemoglobin immunoassay. Quantitative values of individual biomarkers are not reportable and are not associated with individual biomarker result reference ranges. Cologuard is intended for colorectal cancer screening of adults of either sex, 45 years or older, who are at average-risk for colorectal cancer (CRC). Cologuard has been approved for use by the U.S. FDA. The performance of Cologuard was established in a cross sectional study of average-risk adults aged 50-84. Cologuard performance in patients ages 45 to 49 years was estimated by sub-group analysis of near-age groups. Colonoscopies performed for a positive result may find as the most clinically significant lesion: colorectal cancer [4.0%], advanced adenoma (including sessile serrated polyps greater than or equal to 1cm diameter) [20%] or non- advanced adenoma [31%]; or no colorectal neoplasia [45%]. These estimates are derived from a prospective cross-sectional screening study of 10,000 individuals at average risk for colorectal cancer who were screened with both Cologuard and colonoscopy. (Serge York al, N Engl J Med 2014;370(14):3739-3472.) Cologuard may produce a false negative or false positive result (no colorectal cancer or precancerous polyp present at colonoscopy follow up). A negative Cologuard test result does not guarantee the absence of CRC or advanced adenoma (pre-cancer). The current Cologuard screening interval is every 3 years. ([place] [employer] Society and U.S. Multi-Society Task Force). Cologuard performance data in a 10,000 patient pivotal study using colonoscopy as the reference method can be accessed at the following location: www.[employer]/results. Additional description of the Cologuard test process, warnings and precautions can be found at www.[employer].Sophie & Juliet. Stool specimen (specimen) 03/25/2025 5:33 PM EDT 03/27/2025 10:36 AM EDT Geoff Slaughter MD LAB MOLECULAR DIAGNOSTICS ORDERA BLES Final Result [facility] (CLIA #:[id number]) [place] [address], * Mammography (02/04/2025 3:18 PM EST) Anatomical Region Laterality Modality Other us Historical Provider HEALTH MAINTENANCE Final Result * PAP/HPV (02/02/2025 12:00 AM EST) Pap Smear 1. NILM 1. NILM [facility] HPV Not Detected Undetected, Indeterminat e, Quantitative , Not Detected [facility] Narrative [facility] - 02/02/2025 12:00 AM EST See care everywhere lab 02/02/2025 us Historical Provider HEALTH MAINTENANCE Edited Result - Final [facility] * Fecal Globin by Immunochemistry (05/08/2023 12:00 AM EDT) Fecal Globin By Immunochemistry SEE NOTE [employer] [facility] Comment: FECAL GLOBIN BY IMMUNOCHEMISTRY Micro Number: [id number] Test Status: Final Specimen Source: Insure (tm) fobt test card Specimen Quality: Inadequate Fecal Globin: Test not performed. Improper collection of the sample by patient. 05/08/2023 05/19/2023 1:2 7 AM EDT Narrative [facility] - 05/20/2023 10:15 AM EDT FASTING: UNKNOWN Geoff Name LAB BODY FLUIDS AND STOOLS ORDER VAZQUEZ Final Result Performing Organization Address [facility] Co de Phone Number [facility] [address], [place] [address] [employer] [place] [employer] [address] [place] [address] * Hepatitis Panel, General (05/03/2023 2:52 PM EDT) Hepatitis A Antibody Total NON-REACT MINH NON-REACT MINH [employer] [facility] Comment: For additional information, please refer to http://education.[employer]/faq/AHN073 (This link is being provided for informational/ educational purposes only.) Hepatitis B Surface Antibody QL NON-REACT MINH NON-REACT MINH [employer] [facility] Hepatitis B Surface Ag NON-REACT MINH NON-REACT MINH [employer] [place] [employer] Hepatitis B Core Antibody Total NON-REACT MINH NON-REACT MINH [facility] [place] [employer] Hepatitis C Antibody NON-REACT MINH NON-REACT MINH [facility] [place] [employer] Index 0.08 <1.00 [employer] [place] [employer] Comment: HCV antibody was non-reactive. There is no laboratory evidence of HCV infection. In most cases, no further action is required. However, if recent HCV exposure is suspected, a test for HCV RNA (test code 56318) is suggested. For additional information please refer to http://education.[employer]/faq/TUA65p9 (This link is being provided for informational/ educational purposes only.) 05/03/2023 2:52 PM EDT 05/03/2023 2:53 PM EDT Narrative [facility] - 05/06/2023 11:14 AM EDT FASTING:NO COLLECTION KIT GIVEN TO PATIENT. PATIENT ADVISED TO RETURN. FASTING: NO Tessie Simons [facility] LAB BLOOD ORDERABLES Final Res ult [facility] [address], [place] [address] [employer] [facility] [address] [place] [address] from Last 3 Months or Most Recently Relevant to Health Maintenance Insurance [facility] C3 Care Teams Direct Response Consultant Relationship Specialty Start Date End Date Name, MD Geoff [address] [place] [address] PCP - General Family Medicine 07/16/22
--- OUTSIDE RECORDS SUMMARY | 2025-11-03 17:29 | XMS_ITS | Clinical Summary ---
Author Organization [facility] Address [address] [place] [address] Phone Care Team Providers Care Director Financial Services Name Role Phone Name, Geoff DONALDSON Primary Care Provider [phone] Allergies No known active allergies Medications chlorhexidine (Hibiclens) 4 % external liquid USE TO WASH VAGINAL AREA ONCE WEEKLY AND INCREASE TO DAILY TOLERATED 3 Active calcium carbonate (CALCIUM ORAL) CALCIUM 250 MG CAP: Take by mouth. - Oral Active multivitamin (MULTI-DAY ORAL) Take by mouth. Active TOPIRAMATE ORAL Take by mouth. Active GABAPENTIN [...] high grade RALPH 2 07/18/2018 Depression 06/09/2015 Surgical History Surgery Date Site/Laterality Comments OTHER SURGICAL HISTORY PROCEDURE: ---- OTHER ----; COMMENT: his coocig surgery HYSTEROSCOPY 06/16/2021 PROCEDURE: [facility] HYSTEROSCOPY BX ENDOMETRIUM&/POLYPC W/WO D&C Medical History [...] care for your loved ones. For example, childbirth educator or elderly care for an older adult? [...] Date Recorded What is your living situation? Unrecognized valu e 10/13/2024 Comments No Sex and Gender Information Value [...] 05/20/2024 3:39 PM EDT Plan of Treatment Health Maintenance Due Date Last Done Comments Hepatitis B Vaccines (1 of 3 - 19+ 3-dose series) 1995 Pneumococcal Vaccine: Pediatrics (0 to 5 Years) and At-Risk Patients (6 to 49 Years) (1 of 2 - PCV) 1995 Cholesterol Screening (Lipid Panel) 11/10/2022 Colorectal Cancer Screening: Stool Based Tests (FOBT/FIT) 05/08/2024 05/08/2023 COVID-19 Vaccine ( - season) 2025 11/02/2024, 10/19/2021, 02/27/2021 Influenza Vaccine (#1) 2025 , 01/09/2021, 10/20/2019, Additional history exists Social Influencers of Health Screening 10/13/2025 10/13/2024 DTaP,Tdap,and Td Vaccines (2 - Td or Tdap) 11/13/2026 11/13/2016 Breast Cancer Screening 02/04/2027 02/05/20 25, 02/28/2023, 01/01/2022, Additional history exists Cervical Cancer Screening: HPV 02/02/2030 02/02/2025, 05/20/2024 RSV Immunization Adult Patients (1 - 1-dose 75+ series) 2051 HIV Screening Completed 12/19/2016 Hepatitis C Screening Completed 12/19/2016 Depression Screening Completed 08/11/2025 HIB Vaccines Aged Out No longer eligi [...] Diagnosis Comments MG MAMMO DIGITAL SCREENING W CHATO BILAT Routine 02/04/2025 2:07 PM EST Encounter for screening mammogram for malignant neoplasm of breast HPV WITH REFLEX GENOTYPE Routine 02/02/2025 10:31 AM EST Screening for cervical cancer HEPATITIS C SCREENING Routine 12/19/2016 HIV SCREENING Routine 12/19/2016 from Last 3 Months or Most Recently Relevant to Health Maintenance Results * MG Mammo Digital Screening w Chato bilat (02/04/2025 2:07 PM EST) Anatomical Region Laterality Modality Breast Bilateral Mammography 02/05/2025 10:0 5 AM EST Impressions 02/05/2025 10:19 AM EST 1. No mammographic evidence of malignancy 2. Extremely dense breast parenchyma. BI-RADS CATEGORY: 2 - BENIGN RECOMMENDATION: Screening bilateral mammogram is recommended in 1 year. Mammo Location: [facility], [address] [place] [address], [address], . -------- FINAL REPORT -------- Dictated By: Emile Otto Dictated Date: 02/05/2025 10:05 ET Assigned Physician: Emile Otto Reviewed and Electronically Signed By: Emile Otto Signed Date: 02/05/2025 10:19 ET Workstation ID: [id number] Transcribed By: Self Edit Transcribed Date: 02/05/2025 10:05 ET Narrative 02/05/2025 10:19 AM EST A BILATERAL DIGITAL 3D SCREENING MAMMOGRAPHY HISTORY: Routine screening. No family history of breast cancer. COMPARISON: Multiple priors dating back to 07/22/2020 Technique: Bilateral full field digital mammography (3D) was performed using standard CC and MLO projections CAD was [...] is recommended in 1 year. Mammo Location: [facility], [address] [place] [address], [address], . -------- FINAL REPORT -------- Dictated By: Emile Otto Dictated Date: 02/05/2025 10:05 ET Assigned Physician: Emile Otto Reviewed and Electronically Signed By: Emile Otto Signed Date: 02/05/2025 10:19 ET Workstation ID: [id number] Transcribed By: Self Edit Transcribed Date: 02/05/2025 10:05 ET Prema Schafer CNM IMG BI PROCEDURES Final Result * HPV with reflex genotype (02/02/2025 10:31 AM EST) HPV Negative Negative LAB MICROBIOLOGY METHOD 02/04/2025 3:40 PM EST [facility] Brushing/Spatula Cervix uteri structure / Unknown 02/02/2025 10:31 AM EST 02/04/2025 5:54 AM EST Prema Schafer CNM LAB MOLECULAR DIAGNOSTICS ORDE RABLES Final Result [facility] [address] [place] [address], [place] [phone] * HIV Screening (12/19/2016) HIV Screening Abstracted us Historical Provider HEALTH MAINTENANCE Final Result * Hepatitis C Screening (12/19/2016) Hepatitis C Screening Abstracted us Historical Provider HEALTH MAINTENANCE Final Result from Last 3 Months or Most Recently Relevant to Health Maintenance Insurance MEDICAID - [place] Care Teams Director Financial Services Relationship Specialty Start Date End Date Name, MD Geoff [address] [place], [place] PCP - General Internal Medicine 05/24/15
--- OUTSIDE RECORDS SUMMARY | 2025-11-03 17:29 | XMS_ITS | Encounter Summary ---
Author Organization [facility] Prior to 10/02/2024 Address [address] [place] [address] Care Team Providers Care Security Operations Center Operator Name Role Phone Name, Geoff DONALDSON Primary Care Provider Unavailabl e Reason for Visit * Reason Onset Date Comments APPOINTMENT 05/30/2021 Encounter Details Date Type Department Care Team Description 05/30/2021 Telephone OBGYN - [place] [address] [place] [address] Simba Burton MD [address] [place] [address] APPOINTMENT Social History Tobacco Use Types Packs/Day Years Used Date Smoking Tobacco: Former Cigarettes Smokeless Tobacco: Never Comments:quit about a year a go Alcohol Use Standard Drinks/Week Comments No 0 (1 standard drink = 0.6 oz [...] encounter Miscellaneous Notes * Telephone Encounter - Arlet Cook - 05/31/2021 1:13 PM EDT Spoke with pt and R/S her pre op to 06/15/2021. * Telephone Encounter - Veronika Anaya - 05/30/2021 4:40 PM EDT Pt not feeling well - had to cancel her pre-op with Dr Zayas for tomorrow-may be reached at the above number documented in this encounter Plan of Treatment Not on file documented as of this encounter Visit Diagnoses Not on filedocumented in this encounter Care Teams Security Operations Center Operator Relationship Specialty Start Date End Date Name, MD Geoff PCP - General Internal Medicine 12/19/16 documented as of this encounter
--- OUTSIDE RECORDS SUMMARY | 2025-11-03 17:29 | XMS_ITS | Encounter Summary ---
Author Organization [facility] Prior to 10/02/2024 Address [address] [place] [address] Care Team Providers Care Application Software Engineer Name Role Phone Name, Geoff DONALDSON Primary Care Provider Unavailabl e Reason for Visit * Reason Onset Date Comments TEST RESULTS 05/09/2021 Encounter Details Date Type Department Care Team Description 05/09/2021 Telephone OBGYN - [place] [address] [place] [address] Simba Pulido MD [address] [place] [address] TEST RESULTS Social History Tobacco Use Types Packs/Day Years [...] encounter Miscellaneous Notes * Telephone Encounter - Bhavya Gould M.A. - 05/10/2021 11:17 AM EDT Spoke to patient,she states she would like to get the hysterescopy D&C rather than try another EMB in the office. Please advise. -AC * Telephone Encounter - Jennifer Mauricio - 05/09/2021 10:49 AM EDT Inform patient: ANY URGENT OR ABNORMAL RESULTS WIILL RESULT IN A CALL BACK TO THE PATIENT LETICIA. English speaking only Type of test: :biopsy Date test was performed: 04/20/21 Where was the test performed: [facility] Who ordered this test?: Dr Pulido Is the doctor here today?: YES Can the message wait until the doctor returns?: NO IF PATIENT'S PCP IS NOT IN INSTRUCT PATIENT THAT THEY WILL RECEIVE A CALL BACK WHEN THE PCP IS IN THE OFFICE NEXT. documented in this encounter Plan of Treatment Not on file documented as of this encounter Visit Diagnoses Not on filedocumented in this encounter Care Teams Application Software Engineer Relationship Specialty Start Date End Date Name, MD Geoff PCP - General Internal Medicine 12/19/16 documented as of this encounter
--- OUTSIDE RECORDS SUMMARY | 2025-11-03 17:29 | XMS_ITS | Encounter Summary ---
Author Organization [employer] [facility] Address [address] [place] [address] Care Team Providers Care Lens Edger Name Role Phone Name, Geoff DONALDSON Primary Care Provider [phone] Reason for Visit * Reason Onset Date Comments triage 05/03/2023 Encounter Details Date Type Department Care Team ([facility] st Contact Info) Description 05/03/2023 Telephone [facility] [address] [place], [place] [phone] Name, MD Geoff [address] [place] [address] triage Social History Tobacco Use Types Packs/Day [...] 05/03/2023 12:15 PM EDT Triage call with [employer] Reverse Unit Operator [place] [id number] Pt reports episodes of dizziness since 5/26. Pt reports this comes and goes. Pt denies spinning or tilting with this dizziness but, describes it as a screeching sound hits both ears, will get visual flashes, chills and then vision will go black and Pt will faint. 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 Pt had been trying [...] day. Pt is advised to come to [facility] today to be seen by provider [...] Description 01/24/2026 11:00 AM EST Office Visit [facility] [address] [place] [address] Name, MD Geoff [address] [place] [address] documented as of this encounter Visit Diagnoses Not on filedocumented in this encounter Care Teams Lens Edger Relationship Specialty Start Date End Date Name, MD Geoff [address] [place] [address] PCP - General Family Medicine 07/16/22 documented as of this encounter
--- OUTSIDE RECORDS SUMMARY | 2025-11-03 17:29 | XMS_ITS | Encounter Summary ---
Author Organization [employer] Address [address] [place] [address] [place] [address] Care Team Providers Care Waste Minimization Technician Name Role Phone Name, Geoff DONALDSON Primary Care Provider [phone] Encounter Details Date Type Department Care Team ([facility] Contact Info) Description 02/08/2025 Orders Only [facility] [address] [place], [place] [phone] ProviderBatool MD Social History Tobacco Use Types Packs/Day Years [...] Description 01/24/2026 11:00 AM EST Office Visit [facility] [address] [place] [address] Name, MD Geoff [address] [place] [phone] documented as of this encounter Procedures Procedure Name Priority Date/Time Associated Diagnosis Comments HM MAMMOGRAPHY Routine 02/04/2025 3:18 PM EST documented in this encounter Results * Hm Mammography (02/04/2025 3:18 PM EST) Anatomical Region Laterality Modality Other Historical Provider HEALTH MAINTENANCE Final Result documented in this encounter Visit Diagnoses Not on filedocumented in this encounter Care Teams Waste Minimization Technician Relationship Specialty Start Date End Date Name, MD Geoff [address] [place] [address] PCP - General Family Medicine 07/16/22 documented as of this encounter
--- OUTSIDE RECORDS SUMMARY | 2025-11-03 17:29 | XMS_ITS | Encounter Summary ---
Author Organization [facility] Prior to 10/02/2024 Address [address] [place] [address] Care Team Providers Care Production Machine Operator Name Role Phone Name, Geoff DONALDSON Primary Care Provider Unavailabl e Reason for Visit * Reason Onset Date Comments Prior Authorization 10/22/2018 Clindamycin phosphate Encounter Details Date Type Department Care Team Description 10/22/2018 Telephone OBGYN - [place] [address] [place] [address] Simba Burton MD [address] [place] [address] Prior Authorization (Clindamycin phosphate) Social History Tobacco Use Types Packs/Day Years [...] encounter Miscellaneous Notes * Telephone Encounter - Meme Farmer M.A. - 11/27/2018 8:11 AM EST Spoke with Jason from [employer] this clindamycin gel was approved on 10/22/18 and is good for oneyear. 10/22/19 * Telephone Encounter - Tessie Ray M.A. - 11/20/2018 9:54 AM EST Signed [facility] PA received and faxed back to [facility] MUNIRA Gustafson Prior Authorization EXT: [id number] Please reply back to [id number] * Telephone Encounter - Meme Farmer M.A. - 11/13/2018 9:58 AM EST Was this prior auth received and signed? We have not received anything back. Thank you Please reply back to [id number] Prior Auth Pool Meme Chadwick [facility] Prior Authorization Ext [id number] * Telephone Encounter - Roxanne Fox M.A. - 10/22/2018 2:25 PM EST Dx code:Hidradenitis Other pertinent information:prior authorization completed and sent to Dr. Gutierrez for signature. * Telephone Encounter - Tessie Brown - 10/22/2018 1:44 PM EST Pre Authorization for Medication-do not complete and send this encounter unless you have the fax from the pharmacy. Is this a Cover My Meds request: Yes -- Chavis Code [id number] Name of Medication Clindamycin Phosphate Dose of Medication not listed on fax What is the RX # from the faxed refill? not listed on fax How does patient take this med? not listed on fax What Pharmacy did the fax come from: [facility] fax #: [phone] [employer] Information from fax: What Prescription Plan does the patient have? BIN/PCN if applicable: not listed on fax Cardholder ID:not listed on fax Person Code: not listed on fax Relationship Code: not listed on fax Sent via interoffice to [facility] [employer] desk phone: documented in this encounter Plan of Treatment Not on file documented as of this encounter Visit Diagnoses Not on filedocumented in this encounter Care Teams Production Machine Operator Relationship Specialty Start Date End Date Name, MD Geoff PCP - General Internal Medicine 12/19/16 documented as of this encounter
--- OUTSIDE RECORDS SUMMARY | 2025-11-03 17:29 | XMS_ITS | Encounter Summary ---
Author Organization [facility] Prior to 10/02/2024 Address [address] [place] [address] Care Team Providers Care Configuration Engineer Name Role Phone Name, Geoff DONALDSON Primary Care Provider Unavailabl e Name, Geoff DONALDSON Primary Care Provider Unavailabl e Encounter Details Date Type Department Care Team Description 05/14/2016 Release of Information Medical Records [address] [place] [id number] Abstract, Provider Social History Tobacco Use Types Packs/Day Years Used Date Smoking Tobacco: Former Cigarettes Smokeless Tobacco: Never Alcohol Use Standard Drinks/Week Comments No 0 (1 standard drink = 0.6 oz pur e alcohol) Alcohol Habits Answer Date Recorded How often [...] on file documented as of this encounter Plan of Treatment Not on file documented as of this encounter Visit Diagnoses Not on filedocumented in this encounter Care Teams Configuration Engineer Relationship Specialty Start Date End Date Geoff Slaughter MD PCP - General Internal Medicine 05/24/15 12/18/16 Geoff Slaughter MD PCP - General Internal Medicine 12/19/16 documented as of this encounter
--- OUTSIDE RECORDS SUMMARY | 2025-11-03 17:29 | XMS_ITS | Encounter Summary ---
Author Organization [facility] Prior to 10/02/2024 Address [address] [place] [address] Care Team Providers Care Elementary Reading Tutor Name Role Phone Name, Geoff DONALDSON Primary Care Provider Unavailabl e Encounter Details Date Type Department Care Team Description 06/16/2021 Hospital Medical Records [address] [place] [address] Simba Burton MD [address] [place] [address] Social History Tobacco Use Types Packs/Day Years Used Date Smoking Tobacco: Some Days Cigarettes Smokeless Tobacco: Never Comments:quit about a [...] Exposure Response Date Recorded In the last month, have you been in contact with someone who was confirmed or suspected to have Coronavirus / COVID-19? No / Unsure 06/15/2021 8:15 AM EDT documented as of this encounter Plan of Treatment Not on file documented as of this encounter Visit Diagnoses Not on filedocumented in this encounter Care Teams Elementary Reading Tutor Relationship Specialty Start Date End Date Name, MD Geoff PCP - General Internal Medicine 12/19/16 documented as of this encounter
--- OUTSIDE RECORDS SUMMARY | 2025-11-03 17:29 | XMS_ITS | Encounter Summary ---
Author Organization [facility] Prior to 10/02/2024 Address [address] [place] [address] Care Team Providers Care Chiropractic Teacher Name Role Phone Name, Geoff DONALDSON Primary Care Provider Unavailabl e Reason for Visit * Reason Comments E-prescribe Rx Request Encounter Details Date Type Department Care Team Description 06/25/2023 Refill OBGYN - [place] [address] [place] [id number] Colten Galo DO E-prescribe Rx Request Social [...] Telephone Encounter - Kristin Sky R.N. - 06/25/2023 4:34 PM EDT Last AG 02/14/21, Rx pended, no refill. Due for upcoming apt on 08/01/[address] Galo for annual. * Telephone Encounter - Ruthie Shaw - 06/25/2023 4:20 PM EDT WHEN WAS THE PATIENTS LAST ANNUAL PREFLIGHT MECHANIC EXAM? 02/14/23 Does patient have an upcoming appointment? Yes [...] Plan: MEDICAID PCC / Product Type: MEDICAID [id number] documented in this encounter Plan of Treatment Not on file documented as of this encounter Visit Diagnoses Not on filedocumented in this encounter Care Teams Chiropractic Teacher Relationship Specialty Start Date End Date Name, MD Geoff PCP - General Internal Medicine 12/19/16 documented as of this encounter
== END 2025-11-03 15:39 | disposition home or self-care (01) ==
LOC: HO.HGI 14:32
PROVIDERS: PCP Internal Medicine Geriatric Medicine; Visit Provider Nurse Practitioner Family
DX: R13.19 Other dysphagia (principal); K21.9 Gastro-esophageal reflux disease without esophagitis; K59.04 Chronic idiopathic constipation; K58.1 Irritable bowel syndrome with constipation
CPT/HCPCS: 99214

== ENCOUNTER → 2025-11-03 14:32 | Outpatient (BNVA) | payer MEDICAID, SELFPAY | PROVIDERS: PCP Internal Medicine Geriatric Medicine; Visit Provider Nurse Practitioner Family | DX: R13.19 Other dysphagia (principal); K21.9 Gastro-esophageal reflux disease without esophagitis; K59.04 Chronic idiopathic constipation; K58.1 Irritable bowel syndrome with constipation | CPT/HCPCS: 99212 ==